=== PATIENT | male | born 1930 | race Caucasian/White ===

== ENCOUNTER 2016-08-18 09:39 | Inpatient (IN) ==
--- NOTE | 2016-08-18 10:10 | Emergency Department Note ---
Arrival - Arrival Chief Complaint: Neuro Stated Complaint: confusion, inability to communicate ED Nursing Triage Note: C/O HAVING CONFUSION SINCE LAST PM., SON STATES THAT HE FOUND HIM THIS MORNING WITH KEYS IN THE CAR AND THE HOUSE GILL WAS ON THE OUTSIDE OF THE DOOR., PATIETN CONFUSED AT TIME OF TRIAGE., Mode of Arrival: Ambulatory Limitations: Altered Mental Status Source: Family Time Seen by Provider: 08/18/16 09:59 - History of Present Illness HPI Narrative: This 85-year-old white male presents with the family for significant change and orientation. The patient normally is able to get around town by himself, converse easily, and visit his daily in a senior care. However this morning his son found him confused and disoriented to time and place. When he discovered his father today the car keys were still in the car and the house keys were stuck in the door on the outside. Currently the patient is oriented only to person. The son describes no significant complaints over the past several days including no complaints of headache, focal deficits, chest pain, shortness of breath, or visual changes. The patient has had a prior stroke without any residual deficits. Currently the patient appears in no acute distress. Onset (ago): hour(s) (Onset of symptoms several hours ago.) Allergies/Adverse Reactions: Allergies Allergy/AdvReac Type Severity Reaction Status Date / Time No Known Allergies Allergy Unverified 08/18/16 09:44 Home Medications: Home Medications Medication Instructions Recorded Confirmed Type Aspirin EC Tab 81 mg PO DAILY 08/18/16 08/18/16 History Dutasteride/Tamsulosin HCl 1 each PO DAILY 08/18/16 08/18/16 History [Dutasteride-Tamsulosin 0.5-0.4] Lisinopril 20 mg PO DAILY 08/18/16 08/18/16 History Pantoprazole Tab [Protonix Tab] 40 mg PO DAILY 08/18/16 08/18/16 History Rivaroxaban [Xarelto] 15 mg PO DAILY 08/18/16 08/18/16 History Rosuvastatin Calcium 5 mg PO DAILY 08/18/16 08/18/16 History Review of System - Review of System 12 point system: reviewed and no additional remarkable complaints except as stated - Review of System Constitutional: Present: as per HPI Respiratory: Present: as per HPI Cardiovascular: Present: as per HPI Neurological: Present: as per HPI Medical,Surgical,& Family Hx - Medical History Cardio: History of: Cerebrovascular Disease, Hypertension, [place], Cardiovascular Problems Gastrointestinal: History of: GERD, Gastrointestinal Bleed - Social History Smoking Status: Never smoker Frequency of Alcohol Use: None Type of Drug Use: None Exam Physical Examination: GENERAL: Well developed, well nourished elderly white male in no acute distress. HEENT: Normocephalic. No trauma. Moist mucous membranes. EOMI. PERRLA. ENT NML NECK: Supple. No adenopathy. CARDIAC: Regular. No murmurs. Heart rate 54 CHEST: Clear to auscultation. No respiratory distress. O2 sat 100% ABDOMEN: Soft. Nontender. Active bowel sounds. EXTREMITIES: No trauma. Normal ROM. No pedal edema. SKIN: No diaphoresis. No rash. NEURO: Alert. Motor, sensory, and vibratory intact. Oriented only to person no focal deficits. Vital Signs: Vital Signs Temperature 97.7 F 08/18/16 09:54 Pulse Rate 56 L 08/18/16 11:02 Respiratory Rate 20 08/18/16 10:46 Blood Pressure 175/89 08/18/16 11:02 O2 Sat by Pulse Oximetry 100 08/18/16 11:02 Course - Reevaluation(s) Reevaluation #1: Discussed with family the need for further evaluation and treatment especially in light of his cardiac arrhythmia. - Consultations Consultation #1: Discussed with hospitalist service will admit for further evaluation treatment. Results - Labs CBC & BMP: 08/18/16 10:00 08/18/16 10:00 Labs: I reviewed the laboratory noted the borderline low hematocrit, low platelet count, mildly azotemic renal numbers, and bump in troponin. - Impressions EK-1 atrial flutter heart rate of 57. Normal QRS duration. Rare PVC. Inferolateral ST depression consistent with ischemia. Poor R-wave progression anteriorly and no acute injury pattern noted. - Diagnostic Findings Procedure: Chest x-ray: image reviewed by me, report reviewed by me ( Cardiomegaly with scattered atelectasis), CT: image reviewed by me, report reviewed by me (Cerebral atrophy with microvascular ischemic disease but no acute event noted) Disposition Clinical Impression: Altered mental status, Atrial flutter Case discussed with: patient's family Disposition: Still a Patient Condition: Stable Time of Disposition: 12:10
[2016-08-18 10:18] LABS: Basophils % 0.2 % (0.0-0.8); Eosinophils # 0.1 10*3/uL (0.0-0.87); Hematocrit 37.2 VOL% (42.0-52.0); Immature Granulocytes % 0.2 %; Immature Granulocytes Absolute 0.01 #; Lymphocytes # 1.8 10*3/uL (1.4-4.0); Lymphocytes % 38.3 % (21.2-54.2); Mean Corpuscular HGB Conc 32.3 GM/DL (32-36); Mean Corpuscular Hemoglobin 30 PG (27-34); Mean Corpuscular Volume 93.2 FL (87-102); Mean Platelet Volume 12.2 FL (9.6-12.0); Monocytes # 0.5 10*3/uL (0.11-0.8); Monocytes % 11.7 % (1.7-12.7); Neutrophils # 2.2 10*3/uL (1.4-7.4); Neutrophils % 47.6 % (38.7-73.9); Red Blood Count 3.99 MC/CUMM (3.8-5.5); Red Cell Distribution Width 14.1 % (9.3-17.3); White Blood Count 4.6 T/CUMM (4-12)
[2016-08-18 10:20] LABS: Platelet Count 89 T/CUMM (130-400)
--- NOTE | 2016-08-18 10:21 | EKG Report ---
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
[2016-08-18 10:42] LABS: Platelet Estimate Decreased
[2016-08-18 10:51] LABS: Albumin 3.6 G/DL (3.4-5.0); Bilirubin,Total 0.9 MG/DL (0.2-1.0); Calcium 8.2 MG/DL (8.5-10.1); Potassium 4.3 MMOL/L (3.5-5.1); Total Protein 7.1 G/DL (6.4-8.3)
--- NOTE | 2016-08-18 10:55 | CT Report ---
History: Mental status changes. Confusion. Disorientation to time and place. History of stroke Date: 08/18/2016 Study: CT head without contrast Comparison exam: CT head July 02, [address] sections were obtained through the head without IV contrast. Total DLP measures 914.6 mGy*cm. The study was also reviewed by [facility]. This CT exam was performed using one or more the following dose reduction techniques: Automated exposure control, adjustment of the MA and/or KV according to patient size, or use of iterative reconstruction technique. There is mild to moderate diffuse cerebral atrophy. The ventricles are midline in position without evidence of hydrocephalus. There is no mass or parenchymal hemorrhage. There is no gross CT evidence of acute cortical stroke. There is evidence of a small chronic infarct in the left parietal convexity area, measuring up to 2 cm diameter. There is some ill-defined low density in the periventricular white matter without mass effect compatible with changes of small vessel disease. There is no acute extra-axial hematoma. There is mild to moderate distal carotid artery calcification. There is no acute abnormality of the calvarium. The partially visualized paranasal sinuses and mastoid air cells are clear. There is a metallic density oval opacity within the right external auditory canal at 7.3 mm diameter compatible with foreign body, possibly a hearing aid. Impression: No acute intracranial process. Cerebral atrophy and chronic ischemic changes. Foreign body in right external auditory canal, possibly a hearing aid PROCEDURE INTERPRETED AT [facility] DEPARTMENT OF RADIOLOGY Final Report Signed by: Dr. Vanita Miramontes
--- NOTE | 2016-08-18 11:02 | XRay Report ---
History: Altered mental status. History of hypertension Date: 08/18/2016 Study: Chest x-ray AP portable Comparison exam: July 02, 2013 chest x-ray There is mild cardiomegaly. There is no mediastinal mass. The pulmonary vasculature is not engorged There is no gross pleural effusion. There is some mild patchy atelectasis/infiltrate in the medial right lung base. There is mild thoracic spondylosis. Impression: Cardiomegaly without overt CHF. Mild atelectasis/infiltrate medial right lung base. Mild right basilar pneumonia cannot be excluded PROCEDURE INTERPRETED AT [facility] DEPARTMENT OF RADIOLOGY Final Report Signed by: Dr. Vanita Miramontes
[2016-08-18 11:10] LABS: Troponin I Only 0.049 NG/ML (0.00-0.045)
[2016-08-18 11:24] LABS: Apearance,Urine CLEAR (Clear); Bilirubin,Urine Negative (Negative); Blood, Urine Negative (Negative); Glucose,Urine (UA) Negative (Negative); Ketones,Urine Negative (Negative); Nitrite,Urine Negative (Negative); Protein,Urine Negative; RBC,Urine <1 /HPF (0-4); Urine Color Straw (Yellow); Urine Specific Gravity 1.009 (1.001-1.035); Urine Urobilinogen < 2.0 EU/DL (0.2-1.0); WBC,Urine <1 /HPF (0-6)
[2016-08-18 11:24] LABS: INR 1.3
[2016-08-18] MEDS ORDERED: LORazepam 2 MG/1 ML VIAL ONE (11:48)
[2016-08-18] MEDS ORDERED: LORazepam 2 MG/1 ML VIAL IV STA ×2 (11:52→12:34)
[2016-08-18] MEDS ORDERED: ONDANSETRON 4 MG/2 ML VIAL IV PRN (13:11)
--- NOTE | 2016-08-18 13:15 | Hospitalist History & Physical ---
<Annika Curryda - Last Filed: 08/18/16 13:44> Assessment and Plan (1) Atrial flutter Status: Acute Assessment and plan: We will admit. Rate is low at this time; will continue to monitor. Consult Cardiology to assist. Current Visit: Yes (2) Altered mental status, unspecified Status: Acute Assessment and plan: Will complete full cardiac work-up. Will obtain corrigan cultures and treat as indicated. Current Visit: Yes History of Present Illness Chief complaint: "confusion" History of present illness: This is a 85 year old male that presented to the ED this morning with his son for evaluation of altered mental status. He has a medical history of myocardial infarction, hypertension, coronary artery disease and GERD. The patient is normally independent. He lives alone. He drives his car around town and visits his daily at a local senior living facility in which she resides in. His son is at bedside, he serves as historian. He reports a slight change in mentation on last night however was not really bothered by it. He left his father's home and returned this morning to check on him. Upon arrival this morning, he discovered his father t car keys were in the car and the house keys were stuck in the door on the outside. Other than the slight changes on last night, the son describes no overt changes in his father in recent days. At the time of presentation, the client was altered. He was only oriented to himself. He became anxious and attempted to leave. His son attempted to redirect him and he then became combative. He is now calm. Labs were obtained which were essentially unremarkable with the exception of his BUN and Creatinine which were noted at 24/1.60. Cardiac enzymes were mildly elevated at 0.049. CT of the was obtained which suggested cerebral atrophy with cerebral atrophy with microvascular ischemic disease ; however but no acute event was noted. Chest radiograph was obtained and revealed cardiomegaly with scattered atelectasis. EKG was obtained which suggested: 3-1 atrial flutter with a rate of 57, normal QRS duration, rare PVC's, inferolateral ST depression consistent with ischemia, poor R-wave progression anteriorly and no acute injury pattern noted. After brief discussion with both Dr. Marroquin and Dr. Blanc, the patient will be admitted under the hospitalist services for continuation of care. We will consult Dr. Touchstone, patient is well known to him. Home Medications Medication Instructions Recorded Confirmed Type Aspirin EC Tab 81 mg PO DAILY 08/18/16 08/18/16 History Dutasteride/Tamsulosin HCl 1 each PO DAILY 08/18/16 08/18/16 History [Dutasteride-Tamsulosin 0.5-0.4] Lisinopril 20 mg PO DAILY 08/18/16 08/18/16 History Pantoprazole Tab [Protonix Tab] 40 mg PO DAILY 08/18/16 08/18/16 History Rivaroxaban [Xarelto] 15 mg PO DAILY 08/18/16 08/18/16 History Rosuvastatin Calcium 5 mg PO DAILY 08/18/16 08/18/16 History Allergies Allergy/AdvReac Type Severity Reaction Status Date / Time lorazepam [From Ativan] AdvReac Intermediate Confusion Verified 08/18/16 15:25 Medical,Surgical,& Family Hx - Medical History Cardio: History of: Cerebrovascular Disease, Hypertension, [place], Cardiovascular Problems Gastrointestinal: History of: GERD, Gastrointestinal Bleed - Social History Smoking Status: Never smoker Frequency of Alcohol Use: None Type of Drug Use: None ROS unobtainable: due to mental status Exam - Constitutional Vitals: Period Temp Pulse Resp BP Sys/Stubbs Pulse Ox Last 24 Hr 97.7 F-97.7 F 50-57 16-20 175-190/83-118 98-100 General appearance: normal weight, no acute distress - Head Head exam: Present: normal inspection, normocephalic, atraumatic - Eye Eye exam: Present: EOMI, conjunctival injection. Absent: nystagmus Pupils: Present: BLAKE, normal accommodation - ENT ENT exam: Present: normal exam, normal external ear exam, other (bilateral hearing aids) - Neck Neck exam: Present: normal inspection - Respiratory Respiratory exam: Present: clear to auscultation bilaterally, rhonchi. Absent: rales, stridor, wheezes - Cardiovascular Cardiovascular exam: Present: irregular rhythm (atrial flutter) - GI/Abdominal GI/Abdominal exam: Present: normal bowel sounds, soft - Extremities Exam Extremities exam: Present: normal inspection, full ROM. Absent: edema - Back Exam Back exam: Present: normal inspection - Neurological Exam Neurological exam: Present: alert, altered - Psychiatric Psychiatric exam: Present: normal affect - Skin Skin exam: Present: normal color, warm, dry Results - Labs CBC & BMP: 08/18/16 10:00 08/18/16 10:00 Lab Results: I have reviewed the past 24 hour labs Quality Measures - VTE Contraindication to Pharmacological VTE Prophylaxis: Already on Theraputic Agent , No Prophylaxis Needed <AnaMarcus robbinsril - Last Filed: 08/18/16 16:23> History of Present Illness History of present illness: This is a shared visit with nurse practitioner, I independently interviewed and examined patient at bedside. Mr. Betancourt is a 85 year old male who presented accompanied by his son with complaints of change in mental status and confusion which was first noted yesterday, seemed to have improved yesterday evening but recurred again today. Son noted today that he was totally confused and unable to carry out his usual daily activity. There is no report of any focal weakness. No previous episode. He lives alone. I reviewed the vital signs, he was quite hypertensive at presentation. On examination: He is still confused No focality on neurological examination. ? Crackles heard on left and right lower lung zones. Change in mental status/delirium ? etiology, likely toxic/metabolic - CT scan is negative hypertensive urgency which may also be responsible for his encephalopathy Bradycardia Acute kidney injury Elevated troponin in the face of hypertension and acute kidney injury Thrombocytopenia ? Etiology Mild atelectasis/infiltrate in the right lung base on chest x-ray rule out pneumonia Plan: Control blood pressure, resume home antihypertensive and adjust doses as we go along. Ativan as needed for agitation. Urine chemistry panel, renal ultrasound since he has a history of BPH to rule out any obstructive uropathy as cause of acute kidney injury. Obtain CT scan to further evaluate chest x-ray findings. Send rapid influenza test, check ammonia level Consult cardiology to evaluate elevated troponin. Obtain echocardiogram. Serial troponin and EKGs. CRP, pro-calcitonin. I discussed with patient's son and [id number] at bedside. Exam - Constitutional Vitals: Period Temp Pulse Resp BP Sys/Stubbs Pulse Ox Last 24 Hr 96.7 F 57-58 20 171-190/93-93 97 Results - Labs CBC & BMP: 08/18/16 10:00 08/18/16 10:00
[2016-08-18] MEDS ORDERED: HALOPERIDOL 5 MG/ML AMP IM ONE (13:57)
[2016-08-18] MEDS ORDERED: HALOPERIDOL 5 MG/ML AMP ONE (13:59)
--- NOTE | 2016-08-18 15:10 | EKG Report ---
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
--- NOTE | 2016-08-18 16:48 | Cardiology Consult Note ---
Assessment and Plan (1) Bradyarrhythmia Status: Acute Assessment and plan: 1. 85 year-old WM with history of CAD (50% EF with stenting of LAD 2 in 2005) , chronic atrial flutter apparently since stroke in 2013 who presented with prolonged confusion yesterday which recurred today and noted to have ventricular rate of mid 40s 2. No presyncope syncope or hypotension (he is actually hypertensive currently) 3. Reported 5 second pause associated with a stroke in 2013; pacemaker was planned but was not performed for some reason (unsure whether the patient refused, or was felt it was a transient phenomenon related to his stroke?) 4. Monitor on telemetry 5. Hold Xarelto until the morning, to determine whether he will need a pacemaker or not 6. Echocardiogram 7. Check follow-up electrolytes and thyroid function 8. Apparently had either confusion and/or combative behavior for which she was given Haldol; he is currently calm but is not oriented (superior and has dementia, but his son thinks that the medicine is effecting his ability to give a history) Current Visit: Yes (2) Altered mental status, unspecified Status: Acute Current Visit: Yes (3) Atrial flutter Status: Acute Current Visit: Yes History of Present Illness - Consult Narrative History of present illness: Mr. Betancourt is a 85 [address] male [address] Dr. Lechuga who is fairly independent and drives to see his in a facility regularly. However he was found to be confused yesterday and had not driven his car Alway and in reported he had gotten confused and did not know which way to go. He declined going to the hospital, and so his son watched him for a while. Later that afternoon the followed him to the facility where his is any was able to drive. Today his son brought him to the hospital because "not being right". He became very agitated as he did not want to stay in the hospital and was given Haldol which apparently relaxed him. He is currently relaxed but cannot give any history and is not oriented. His son states that is the Haldol the did that. He is not complaining of chest pain or shortness of breath or dizziness. However his heart rate was in the 40s with chronic atrial flutter and is currently just over 50 beats minute. There is been no presyncope or syncope noted. Of note pacemaker was planned after his stroke in 2013 for 5 second positive, but apparently this was not performed for uncertain reasons. He declined anticoagulation for that admission but has been on Xarelto since that time. CC: Min Blanc MD - Home Medications and Allergies Home Medications: Home Medications Medication Instructions Recorded Confirmed Type Aspirin EC Tab 81 mg PO DAILY 08/18/16 08/18/16 History Dutasteride/Tamsulosin HCl 1 each PO DAILY 08/18/16 08/18/16 History [Dutasteride-Tamsulosin 0.5-0.4] Lisinopril 20 mg PO DAILY 08/18/16 08/18/16 History Pantoprazole Tab [Protonix Tab] 40 mg PO DAILY 08/18/16 08/18/16 History Rivaroxaban [Xarelto] 15 mg PO DAILY 08/18/16 08/18/16 History Rosuvastatin Calcium 5 mg PO DAILY 08/18/16 08/18/16 History Allergies/Adverse Reactions: Allergies Allergy/AdvReac Type Severity Reaction Status Date / Time lorazepam [From Ativan] AdvReac Intermediate Confusion Verified 08/18/16 15:25 Medical,Surgical,& Family Hx - Medical History Cardio: History of: Cerebrovascular Disease, Hypertension, [place], Cardiovascular Problems Psychological: History of: Behavior Problems No history of: Anxiety Disorders Neurology: History of: Dementia, TIA Gastrointestinal: History of: GERD, Gastrointestinal Bleed - Surgical History Cardiac Surgeries: Patient Denies: Cardiac Catheterization Thoracic Surgeries: Patient denies;: Lobectomy Neurologic Surgeries: Patient denies: Neurologic Surgery HEENT Surgeries: Patient denies: Tonsilectomy & Adenoidectomy - Family History Family History: Reports;: Family Heart Disease, Family Psychiatric Problems - Social History Smoking Status: Never smoker Frequency of Alcohol Use: None Type of Drug Use: None Physical Examination Vital Signs Temp Pulse Resp BP Pulse Ox 97.7 F 54 L 16 177/118 100 08/18/16 09:40 08/18/16 09:40 08/18/16 09:40 08/18/16 09:40 08/18/16 09:40 General: Present: Appears Well, No Apparent Distress, Other (alert but not oriented) HEENT: Present: Normocephaly Neck: Present: Supple Neck, No JVD/HJR, No Bruit Cardiac: Present: Bradycardia. Absent: Systolic Murmur, Diastolic Murmur Lungs: Present: Decreased Breath Sounds, Other (unable to cooperate with lung exam) Abdomen: Present: Soft, Non-Tender Extremities: Present: +1 Edema Result/EKG - Labs CBC & BMP: 08/18/16 10:00 08/18/16 10:00 Labs: Laboratory Results - last 24 hr 08/18/16 08/18/16 15:15 15:15 Ammonia 14 C-Reactive Protein < 0.29 Quality Measures - VTE Contraindication to Pharmacological VTE Prophylaxis: Already on Theraputic Agent , No Prophylaxis Needed
[2016-08-18] MEDS ORDERED: amLODIPine 2.5 MG TABLET PO ONE (20:21)
[2016-08-18] MEDS: DOBUTamine 500 MG/250 ML PREMIX IV SCH (20:47)
--- NOTE | 2016-08-18 20:52 | CT Report ---
History: Infiltrate right lung base. Abnormal chest x-ray Date: 08/18/2016 Study: CT chest without contrast Comparison exam: July 31, [address] sections were obtained through the lungs without IV contrast. The CT exam was performed using one or more of the following dose reduction techniques: Automated exposure control, adjustment of the mA and/or kV according to patient size, or use of iterative reconstruction technique. There is mild layering bilateral pleural effusion. There is no confluent infiltrate to suggest pneumonia. There is some dependent atelectasis in the lower lungs. There is nonspecific mediastinal lymphadenopathy, to include a 14 mm short axis diameter subcarinal node which has developed in the interval since the [address] There is a posterior right paratracheal lymph node measuring 13 mm diameter which is also developed in the interval. There is no aneurysm of the thoracic aorta. There is moderate to prominent coronary artery calcification with involvement of the left anterior descending coronary artery. There is a small hiatal hernia. Spondylotic changes of the spine are present. Impression: No evidence of pneumonia. Nonspecific mediastinal lymphadenopathy which has developed in the interval Mild bilateral pleural effusion Coronary artery calcification Small hiatal hernia PROCEDURE INTERPRETED AT [facility] DEPARTMENT OF RADIOLOGY Final Report Signed by: Dr. Vanita Miramontes
[2016-08-18] MEDS: NITROGLYCERIN DRIP 50 MG/250 ML BOTTLE IV SCH (23:00)
[2016-08-18] MEDS: HALOPERIDOL 5 MG/ML AMP IV PRN (23:40)
--- NOTE | 2016-08-19 00:32 | EKG Report ---
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
[2016-08-19 05:32] LABS: Basophils % 0.2 % (0.0-0.8); Eosinophils % 0.2 % (0.00-10.9); Hematocrit 33.1 VOL% (42.0-52.0); Hemoglobin 11.1 GM/DL (14.0-18.0); Immature Granulocytes % 0.4 %; Immature Granulocytes Absolute 0.02 #; Lymphocytes # 0.5 10*3/uL (1.4-4.0); Lymphocytes % 10.1 % (21.2-54.2); Mean Corpuscular HGB Conc 33.5 GM/DL (32-36); Mean Corpuscular Hemoglobin 31 PG (27-34); Mean Corpuscular Volume 91.2 FL (87-102); Mean Platelet Volume 12.4 FL (9.6-12.0); Monocytes # 0.4 10*3/uL (0.11-0.8); Neutrophils # 3.7 10*3/uL (1.4-7.4); Neutrophils % 80.1 % (38.7-73.9); Red Blood Count 3.63 MC/CUMM (3.8-5.5); Red Cell Distribution Width 13.8 % (9.3-17.3); White Blood Count 4.6 T/CUMM (4-12)
[2016-08-19 05:37] LABS: Platelet Count 87 T/CUMM (130-400)
[2016-08-19 06:02] LABS: Calcium 8.1 MG/DL (8.5-10.1); Magnesium 1.8 MG/DL (1.8-2.4); Osmolality,Calculated 288.8 MOS/KG (273-304); Potassium 3.6 MMOL/L (3.5-5.1)
[2016-08-19 06:09] LABS: CKMB % 1.4 %; Troponin I Only 0.328 NG/ML (0.00-0.045)
[2016-08-19 06:12] LABS: Albumin 3.3 G/DL (3.4-5.0); Bilirubin,Total 1.5 MG/DL (0.2-1.0); Calcium 8.2 MG/DL (8.5-10.1); Magnesium 1.7 MG/DL (1.8-2.4); Osmolality,Calculated 288.8 MOS/KG (273-304); Potassium 3.6 MMOL/L (3.5-5.1); Risk Ratio 2.48; Thyroid Stimulating Hormone 6.43 uIU/ml (0.358-3.74); Total Protein 6.2 G/DL (6.4-8.3); VLDL CHOLESTEROL 13.2 MG/DL
[2016-08-19 06:18] LABS: Hypochromasia Slight; Platelet Estimate Decreased
[2016-08-19 06:19] LABS: Microcytosis 1+; Ovalocytes Slight
--- NOTE | 2016-08-19 07:30 | Cardiology Progress Note ---
Assessment and Plan (1) Bradyarrhythmia Status: Acute Assessment and plan: 1. 85 year-old WM with history of CAD (50% EF with stenting of LAD 2 in 2005) , chronic atrial flutter apparently since stroke in 2013 who presented with prolonged confusion yesterday which recurred today and noted to have ventricular rate of mid 40s 2. No presyncope syncope or hypotension (he is actually hypertensive currently) 3. Reported 5 second pause associated with a stroke in 2013; pacemaker was planned but was not performed for some reason (unsure whether the patient refused, or was felt it was a transient phenomenon related to his stroke?) 4. Monitor on telemetry 5. Hold Xarelto until the morning, to determine whether he will need a pacemaker or not 6. Echocardiogram 7. Check follow-up electrolytes and thyroid function 8. Apparently had either confusion and/or combative behavior for which she was given Haldol; he is currently calm but is not oriented (superior and has dementia, but his son thinks that the medicine is effecting his ability to give a history) August 19 update: 1. Mr. Alberto continues to have his chronic atrial flutter, but is now having 5 -6 second pauses, which prompted me to move him to the unit for dopamine 5 mics per kilogram per minute. She has not had further pauses of significance since we started. 2. He cannot consent for himself, I discussed with the son the matter and he said he is willing to sign for consent for pacemaker. He does want to talk to Dr. Lechuga, explained to him that Dr. Lechuga may not be in. I last Dr. Clinton to see him to consider placing pacemaker tomorrow. 3. Continue to hold Xarelto for plan for pacemaker 4. Echocardiogram ordered 5. Hypertensive with blood pressure systolic in the 170s; given amlodipine 10 millions now and daily 6. Given his history of previous stroke, will consult neurology (no acute findings on initial CT) Current Visit: Yes (2) Altered mental status, unspecified Status: Acute Current Visit: Yes (3) Atrial flutter Status: Acute Current Visit: Yes Cardiology - PN: Subj Interval history: Mr. Betancourt is no distress but cannot answer questions. He speaks with somewhat nonsensically. He has no complaints. He is currently atrial flutter with reasonable rate, was moved to CCU due to Exam (Progress Note) - Constitutional Vitals: Period Temp Pulse Resp BP Sys/Stubbs Pulse Ox Last 24 Hr 96.7 F-97.9 F 44-120 14-23 122-206/42-123 93-100 General appearance: normal weight, no acute distress, other (disoriented and cannot answer questions) - Head Head exam: Present: normocephalic, atraumatic - Neck Neck exam: Present: normal inspection - Respiratory Respiratory exam: Present: clear to auscultation bilaterally. Absent: stridor, wheezes - Cardiovascular Cardiovascular exam: Present: regular rate and rhythm. Absent: diastolic murmur , tachycardia - GI/Abdominal GI/Abdominal exam: Present: soft. Absent: tenderness - Extremities Exam Extremities exam: Absent: edema - Neurological Exam Neurological exam: Present: alert. Absent: oriented X3 Result/EKG - Labs CBC & BMP: 08/19/16 04:59 08/19/16 04:59 Labs: Laboratory Results - last 24 hr 08/18/16 08/18/16 08/19/16 15:15 15:15 04:59 WBC RBC Hgb Hct MCV MCH MCHC RDW Plt Count MPV Neut % (Auto) Lymph % (Auto) [place] % (Auto) Eos % (Auto) Baso % (Auto) Neut # (Auto) Lymph # (Auto) [place] # (Auto) Eos # (Auto) Baso # (Auto) Immature Gran % Nucleated RBC % Immature Gran # Nucleated RBCs # Platelet Estimate Hypochromasia Microcytosis Ovalocytes Sodium Potassium Chloride Carbon Dioxide Anion Gap BUN Creatinine GFR Calculation BUN/Creatinine Ratio Glucose Calculated Osmolality Calcium Magnesium Total Bilirubin AST ALT Alkaline Phosphatase Ammonia 14 Total Creatine Kinase 532 H D CK-MB (CK-2) 7.6 H CK and CKMB Interp 1.4 Troponin I 0.328 H D C-Reactive Protein < 0.29 B-Natriuretic Peptide Total Protein Albumin Globulin Albumin/Globulin Ratio Triglycerides Cholesterol LDL Cholesterol VLDL Cholesterol HDL Cholesterol Heart Disease Risk Ratio TSH 3rd Generation 08/19/16 08/19/16 08/19/16 04:59 04:59 04:59 WBC 4.6 RBC 3.63 L Hgb 11.1 L Hct 33.1 L MCV 91.2 MCH 31 MCHC 33.5 RDW 13.8 Plt Count 87 L MPV 12.4 H Neut % (Auto) 80.1 H Lymph % (Auto) 10.1 L Nicollet % (Auto) 9.0 Eos % (Auto) 0.2 Baso % (Auto) 0.2 Neut # (Auto) 3.7 Lymph # (Auto) 0.5 L Nicol[place] # (Auto) 0.4 Eos # (Auto) 0.0 Baso # (Auto) 0.0 Immature Gran % 0.4 Nucleated RBC % 0.0 Immature Gran # 0.02 Nucleated RBCs # 0.00 Platelet Estimate Decreased Hypochromasia Slight Microcytosis 1+ Ovalocytes Slight Sodium 144 Potassium 3.6 Chloride 111 H Carbon Dioxide 22 Anion Gap 14.6 BUN 21 H Creatinine 1.40 H GFR Calculation 53 BUN/Creatinine Ratio 15.00 Glucose 95 Calculated Osmolality 288.8 Calcium 8.2 L Magnesium 1.7 L Total Bilirubin 1.50 H AST 30 ALT 16 Alkaline Phosphatase 68 Ammonia Total Creatine Kinase CK-MB (CK-2) CK and CKMB Interp Troponin I C-Reactive Protein B-Natriuretic Peptide 536 H Total Protein 6.2 L Albumin 3.3 L Globulin 2.9 Albumin/Globulin Ratio 1.1 Triglycerides 66 Cholesterol 109 LDL Cholesterol 62.0 VLDL Cholesterol 13.2 HDL Cholesterol 44 Heart Disease Risk Ratio 2.48 TSH 3rd Generation 6.430 H 08/19/16 04:59 WBC RBC Hgb Hct MCV MCH MCHC RDW Plt Count MPV Neut % (Auto) Lymph % (Auto) Nicol[place] % (Auto) Eos % (Auto) Baso % (Auto) Neut # (Auto) Lymph # (Auto) Nicol[place] # (Auto) Eos # (Auto) Baso # (Auto) Immature Gran % Nucleated RBC % Immature Gran # Nucleated RBCs # Platelet Estimate Hypochromasia Microcytosis Ovalocytes Sodium 144 Potassium 3.6 Chloride 112 H Carbon Dioxide 22 Anion Gap 13.6 BUN 20 H Creatinine 1.40 H GFR Calculation 53 BUN/Creatinine Ratio 14.00 Glucose 96 Calculated Osmolality 288.8 Calcium 8.1 L Magnesium 1.8 Total Bilirubin AST ALT Alkaline Phosphatase Ammonia Total Creatine Kinase CK-MB (CK-2) CK and CKMB Interp Troponin I C-Reactive Protein B-Natriuretic Peptide Total Protein Albumin Globulin Albumin/Globulin Ratio Triglycerides Cholesterol LDL Cholesterol VLDL Cholesterol HDL Cholesterol Heart Disease Risk Ratio TSH 3rd Generation Quality Measures - VTE Contraindication to Pharmacological VTE Prophylaxis: Already on Theraputic Agent , No Prophylaxis Needed
--- NOTE | 2016-08-19 08:33 | Hospitalist Progress Note ---
Assessment and Plan - Time spent with patient Time spent with patient: Greater than 30 minutes (1) Hypertension Status: Acute Assessment and plan: Currently on nitro drip and dobutamine and oral nifedipine with improvement in his blood pressure. Cardiology following Current Visit: Yes (2) Encephalopathy acute Status: Acute Assessment and plan: So far no infective cause for his encephalopathy has been found. I initially suspected hypertensive encephalopathy, blood pressure is now better controlled but he still pleasantly confused. This may be worsening/progression of vascular dementia Neurology has been consulted Current Visit: Yes (3) Atrial flutter Status: Acute Assessment and plan: Rate controlled per cardiology Currently on dobutamine and cardiology managing dosing. His anticoagulation is on hold for possible pacemaker placement tomorrow. Dr. Clinton has been consulted Current Visit: Yes (4) Altered mental status, unspecified Status: Acute Current Visit: Yes (5) Bradyarrhythmia Status: Acute Assessment and plan: Currently his heart rate have been within normal limits. Cardiology is following possible pacemaker placement Current Visit: Yes Hospitalist: Subjective Interval history: This is an 85-year-old man change in mental status over 48 hours time period. Transferred by cardiology to CCU because of prolonged cardiac pauses. Records show that he has had rhythm abnormalities in the past but had declined pacemaker placement. History of still slightly elevated but he has not complained of any chest pain. TSH is elevated but T4 is within normal limits. Still manages to maintain elevated blood pressures. Slight improvement in his overall sensorium today, not combative. No fever. There has not been any infective or metabolic cause for his change in mental status. No focal deficit, neurology has been consulted. Exam - Constitutional Vitals: Period Temp Pulse Resp BP Sys/Stubbs Pulse Ox Last 24 Hr 96.7 F-97.9 F 44-120 14-23 122-206/42-123 93-100 General appearance: no acute distress - Head Head exam: Present: normocephalic, atraumatic - Eye Eye exam: Absent: periorbital swelling, scleral icterus Pupils: Present: BLAKE - ENT ENT exam: Present: normal exam - Neck Neck exam: Absent: lymphadenopathy, meningismus, tenderness - Respiratory Respiratory exam: Present: clear to auscultation bilaterally. Absent: rhonchi, wheezes - Cardiovascular Cardiovascular exam: Present: irregular rhythm. Absent: JVD - GI/Abdominal GI/Abdominal exam: Present: normal bowel sounds, tenderness, soft - Extremities Exam Extremities exam: Absent: edema - Neurological Exam Neurological exam: Present: alert - Psychiatric Psychiatric exam: Present: other (confused) - Skin Skin exam: Present: normal color, warm, dry Results - Labs CBC & BMP: 08/19/16 04:59 08/19/16 04:59 Quality Measures - VTE Contraindication to Pharmacological VTE Prophylaxis: Already on Theraputic Agent , No Prophylaxis Needed
--- NOTE | 2016-08-19 08:40 | EKG Report ---
Stationary ECG Study [facility] Test Date: 08/19/2016 4:23:09 AM Pat Name: LINDA JOSHI Department: Room: 128 Gender: M [employer] Operator: : [id number] Requested by: Lennox Araujo Order Number: [id number] Reading MD: IGOR OBRIEN Intervals [place] Rate: 67 P: 999 MO: 0 QRS: -44 QRSD: 110 T: 80 QT: 364 QTc: 380 Interpretive Statements ATRIAL FLUTTER WITH CONTROLLED VENTRICULAR RESPONSE VENTRICULAR PREMATURE COMPLEX MARKED LEFT AXIS DEVIATION POSSIBLE ANTEROLATERAL MYOCARDIAL INFARCTION, OLD Electronically Signed On 08-23-16 09:22:26 CDT by IGOR OBRIEN [email or web address]
[2016-08-19] MEDS ORDERED: RIVAROXABAN 15 MG TABLET PO SCH (09:00)
[2016-08-19] MEDS: DUTASTERIDE 0.5 MG CAPSULE PO SCH (09:40)
[2016-08-19] MEDS: ASPIRIN EC 81 MG TABLET PO SCH (09:40)
[2016-08-19] MEDS: ROSUVASTATIN 10 MG TABLET PO SCH (09:40)
[2016-08-19] MEDS: TAMSULOSIN 0.4 MG CAPSULE PO SCH (09:41)
[2016-08-19] MEDS: amLODIPine 10 MG TABLET PO SCH (09:41)
[2016-08-19] MEDS: LISINOPRIL 20 MG TABLET PO SCH (09:41)
[2016-08-19] MEDS: PANTOPRAZOLE 40 MG TABLET PO SCH (09:41)
[2016-08-19] MEDS ORDERED: diphenhydrAMINE CAP 25 MG CAPSULE PO ONE (11:23)
[2016-08-19] MEDS ORDERED: DIAZEPAM 5 MG TABLET PO ONE (11:23)
[2016-08-19] MEDS ORDERED: ceFAZolin 1,000 MG VIAL IRRIG ONE (11:23)
[2016-08-19] MEDS: HALOPERIDOL 5 MG/ML AMP IV PRN ×2 (11:27→20:43)
--- NOTE | 2016-08-19 11:29 | Event Note ---
Patient recently has had change in mental status. He is in ICU requiring dobutamine because of his heart rates being severely bradycardic as well as having issues with pauses over 6 seconds. He is had some issues previously and has refused pacemaker. The patient now is confused with mental status changes. I have discussed the patient's situation with Dr. Stanislaw Parrish and with Mr. Betancourt son Mr. Lamin Betancourt. I discussed with Mr. Lamin Betancourt and his the patient's status and indications for pacemaker implantation as well as the risk and how the procedure be carried out. Mr. Lamin Betancourt has discussed this with his siblings and they have decided to proceed with the procedure. As noted I discussed pacemaker system implantation procedure with the patient's available family. I reviewed with them the indications of the procedure as well as the basis of how the procedure itself would be carried out. I also reviewed with them the possible risks which include but not necessarily limited to surgical site bruising pain swelling or pocket hematoma that may require surgical evacuation. Discussed that the pain, swelling, bruising could be significant. Also discussed the possibility of surgical site or pocket infection that may require oral or IV antibiotics or even the possibility of surgical drainage of the pocket or even removal of the pacemaker system. Also discussed the possibility of hemothorax or pneumothorax that may require chest tube and possible blood transfusion. Also discussed the possibility of myocardial perforation that may lead to pericardial tamponade and the need for pericardiocentesis and blood transfusion. They voice understanding and agree to proceed. We plan on carrying out tomorrow morning.
[2016-08-19] MEDS ORDERED: SODIUM CHLORIDE 0.9% 1,000 ML IV SCH (11:30)
[2016-08-19] MEDS: DOBUTamine 500 MG/250 ML PREMIX IV SCH (16:52)
--- NOTE | 2016-08-19 17:28 | ECHO Report ---
Vickie Betancourt Exam Date: 08/19/2016 09:16 Referring Physician: Technologist: Annette Claudio RDCS Age: 85 Ht (in): 70 Wt (lb): 183 Gender: M Exam Location: [facility] Echo Indications: Atrial flutter, Altered mental status, CAD, Cardiomyopathy, unspecified BP: 190 / 90 HR: 83 Rhythm: Atrial flutter Technical Quality: Good IMPRESSIONS 1. Left ventricle is normal size and systolic function ejection fraction 50%. There is mild concentric left ventricular hypertrophy. 2. Right ventricle is mildly dilated with normal systolic function. 3. Right and left atrium are moderately dilated. 4. Aortic valve minimally sclerotic but no stenosis or regurgitation. 5. Mitral valve is anatomically functioning normal. 6. At worst mild tricuspid regurgitation. 7. Mild to possibly moderate elevated right-sided pressures. MEASUREMENTS (Male / Female) Normal Values 2D ECHO LV Diastolic Diameter PLAX 4.7 cm 4.2 - 5.9 / 3.9 - 5.3 cm LV Systolic Diameter PLAX 2.8 cm LV Fractional Shortening PLAX 41.0 % IVS Diastolic Thickness 1.1 cm 0.6 - 1.0 / 0.6 - 0.9 cm LVPW Diastolic Thickness 1.1 cm 0.6 - 1.0 / 0.6 - 0.9 cm RV Internal Dim ED PLAX 3.2 cm Aortic Root Diameter 3.3 cm LA Systolic Diameter LX 5.4 cm 3.0 - 4.0 / 2.7 - 3.8 cm DOPPLER TR Peak Velocity 326.0 cm/s TR Peak Gradient 42.5 mmHg FINDINGS Left Ventricle Normal left ventricular cavity size. Mild left ventricular hypertrophy. Left ventricular ejection fraction is estimated at 60 %. Right Ventricle Right ventricle is upper is normal size to mildly dilated with normal systolic function. Right Atrium Moderately increased right atrial size. Left Atrium Moderately increased left atrial size. Mitral Valve Morphologically normal mitral valve without significant stenosis or prolapse. There is no mitral regurgitation. Aortic Valve Morphologically normal aortic valve the tricuspid with minimal sclerosis but no stenosis. There is no aortic regurgitation. Tricuspid Valve Morphologically normal tricuspid valve. Mild tricuspid valve regurgitation. Tricuspid regurgitation velocities suggest a PAP of 53 mmHg. Pulmonic Valve Morphologically normal pulmonic valve. Trace pulmonary valve regurgitation. Pericardium Normal pericardium without effusion. Aorta Normal ascending aorta dimension. Kulwinder Clinton MD (Electronically Signed) Final Date: 19 August 2016 17:27
[2016-08-19] MEDS: SODIUM CHLORIDE 0.9% 1,000 ML IV SCH (19:42)
[2016-08-19] MEDS: NITROGLYCERIN DRIP 50 MG/250 ML BOTTLE IV SCH (23:22)
[2016-08-20 05:08] LABS: Basophils % 0.2 % (0.0-0.8); Eosinophils % 0.4 % (0.00-10.9); Hematocrit 36.3 VOL% (42.0-52.0); Hemoglobin 11.8 GM/DL (14.0-18.0); Immature Granulocytes % 0.2 %; Immature Granulocytes Absolute 0.01 #; Lymphocytes # 0.8 10*3/uL (1.4-4.0); Mean Corpuscular HGB Conc 32.5 GM/DL (32-36); Mean Corpuscular Hemoglobin 30 PG (27-34); Mean Corpuscular Volume 92.8 FL (87-102); Mean Platelet Volume 12.1 FL (9.6-12.0); Monocytes # 0.6 10*3/uL (0.11-0.8); Monocytes % 11.7 % (1.7-12.7); Neutrophils # 3.7 10*3/uL (1.4-7.4); Neutrophils % 72.5 % (38.7-73.9); Red Blood Count 3.91 MC/CUMM (3.8-5.5); Red Cell Distribution Width 13.8 % (9.3-17.3); White Blood Count 5.1 T/CUMM (4-12)
[2016-08-20 05:10] LABS: Platelet Count 88 T/CUMM (130-400)
[2016-08-20 05:39] LABS: Calcium 8.2 MG/DL (8.5-10.1); Magnesium 1.7 MG/DL (1.8-2.4); Osmolality,Calculated 286.8 MOS/KG (273-304); Potassium 3.7 MMOL/L (3.5-5.1)
[2016-08-20] MEDS ORDERED: diphenhydrAMINE CAP 25 MG CAPSULE PO ONE (06:00)
[2016-08-20] MEDS ORDERED: DIAZEPAM 5 MG TABLET PO ONE (06:00)
[2016-08-20] MEDS ORDERED: MAGNESIUM SULF RIDER 4 GM in PREMIX 1 EACH IV PRN (06:36)
--- NOTE | 2016-08-20 06:37 | Cardiology Progress Note ---
Assessment and Plan - Time spent with patient Time spent with patient: Less than 30 minutes (1) Second degree AV block, Mobitz type II Status: Acute Assessment and plan: Patient atrial flutter/atrial tachycardia with episodes of increased AV block and long pauses up to 6 seconds. 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 May be secondary to having severe bradycardia versus other. CT of the head without acute changes. Current Visit: Yes (5) Bradyarrhythmia Status: Acute Assessment and plan: This is secondary to his AV node disease/Mobitz type II second-degree AV block. He needs a dual-chamber pacemaker as discussed with the family yesterday we will pursue this morning. Current Visit: Yes (6) Hypertension Status: Acute Assessment and plan: Blood pressures of been up and down and we'll monitor these. Current Visit: Yes (7) Encephalopathy acute Status: Acute Assessment and plan: It is not clear the cause of this. Should be monitored but seems to be improving. Current Visit: Yes Cardiology - PN: Subj Interval history: The patient generally the last 24 hours been fairly stable. He has been more lucid this morning and not as agitated. He still somewhat disoriented. He has no family at the bedside this time. We had discussed pacemaker yesterday with them and they were agreeable as are noted on previous notes. The patient's lab work this morning is stable but his magnesium is 1.[address] her on magnesium protocol. His blood pressures of been up and down. His heart rates of been up and down as well. He continues to be in atrial tachycardia/flutter. Exam (Progress Note) - Constitutional Vitals: Period Temp Pulse Resp BP Sys/Stubbs Pulse Ox Last 24 Hr 97.8 F-98.7 F 60-122 14-161 101-184/47-131 94-100 Exam: General appearance: normal weight, elderly man who is alert and disoriented but in no distress HEENT exam: normal inspection, atraumatic Neck exam: normal inspection no JVD. No carotid bruit. Trachea is in midline Respiratory/lungs exam: clear to auscultation bilaterally good air movement. Cardiovascular exam: regular rate and rhythm, no murmur or gallop or rub. No precordial lift. Chest wall exam: nontender GI/Abdominal exam: normal bowel sounds, soft, nontender, no abdominal bruits or pulsatile masses. Extremeties/musculoskeletal: normal inspection without edema or cyanosis. Neurological exam: Awake and alert but disoriented. He is not agitated she was yesterday. Psychiatric exam: Little disoriented. He though is not agitated. Skin exam: normal color, warm Result/EKG - Labs CBC & BMP: 08/20/16 03:52 08/20/16 03:52 Lab Results: I have reviewed the past 24 hour labs Labs: Laboratory Results - last 24 hr 08/20/16 08/20/16 03:52 03:52 WBC 5.1 RBC 3.91 Hgb 11.8 L Hct 36.3 L MCV 92.8 MCH 30 MCHC 32.5 RDW 13.8 Plt Count 88 L MPV 12.1 H Neut % (Auto) 72.5 Lymph % (Auto) 15.0 L Hall % (Auto) 11.7 Eos % (Auto) 0.4 Baso % (Auto) 0.2 Neut # (Auto) 3.7 Lymph # (Auto) 0.8 L [place] # (Auto) 0.6 Eos # (Auto) 0.0 Baso # (Auto) 0.0 Immature Gran % 0.2 Nucleated RBC % 0.0 Immature Gran # 0.01 Nucleated RBCs # 0.00 Sodium 144 Potassium 3.7 Chloride 113 H Carbon Dioxide 22 Anion Gap 12.7 BUN 15 Creatinine 1.40 H GFR Calculation 53 BUN/Creatinine Ratio 10.00 Glucose 97 Calculated Osmolality 286.8 Calcium 8.2 L Magnesium 1.7 L - Impressions Impressions: Telemetry with atrial tachycardia/flutter with controlled ventricular response. Quality Measures - VTE Contraindication to Pharmacological VTE Prophylaxis: Already on Theraputic Agent , No Prophylaxis Needed
--- NOTE | 2016-08-20 06:43 | History and Physical Update ---
Sedation H&P Update - History and Physical H&P was reviewed, the patient examined and there: are no changes in the patients condition since last H&P was completed. - Dictation Physical: refer to H&P completed by admitting physician - Physical Exam Mental Status: other (slightly disoriented) Heart: regular rate and rhythm Lung: clear to auscultation Abdomen: within normal limits Vitals: within normal limits History and Physical Changes: none - Sedation Plan for Sedation: moderate Patient Consent: Procedure disscussed with patient and patinet has consented., Risks and benefits were discussed with patient,including infection,, bleeding, injury to surrounding structures, seizure, temporary nerve, Patient understands and accepts potential risks/benefits and agrees to, proceed. ASA Class: III Airway Assessment: Class III: Soft palate, base of uvula visible
[2016-08-20] MEDS: MAGNESIUM SULF RIDER 2 GM in PREMIX 1 EACH IV PRN (06:46)
[2016-08-20] MEDS ORDERED: ceFAZolin 1,000 MG VIAL ONE (07:30)
[2016-08-20] MEDS ORDERED: LIDOCAINE 1% 20 ML VIAL ONE (07:30)
[2016-08-20] MEDS ORDERED: TISSUE ADHESIVE 1 EACH APPLICATOR TOP ONE ×2 (07:30→08:29)
[2016-08-20] MEDS ORDERED: MIDAZOLAM 2 MG/2 ML VIAL ONE (07:43)
--- NOTE | 2016-08-20 08:35 | Operative Note ---
Date of procedure: 08/20/16 Procedure Preformed: Single-chamber pacemaker system implantation. Surgeon / Physician: Kulwinder Clinton Billing Supervisor: Jam Hinojosa Post-op diagnosis: same Findings: Successful signature pacemaker implantation. Specimens: none sent Estimated blood loss: minimal Condition: stable Anesthesia: local, conscious sedation Disposition: ICU
--- NOTE | 2016-08-20 08:47 | Cardiac Pacemaker ---
- Preoperative diagnosis Date of Procedure:: 08/20/16 Preoperative Diagnosis: Documented nonreversible symptomatic bradycardia due to , sinus node dysfunction, second-degree atrioventricular block Pre-op Diagnosis: See below/and above Post-op diagnosis: same Procedure: History: 85-year-old man who is had persistent atrial flutter/atrial tachycardia with variable ventricular response. He is had previous bradycardias with symptomatic bradycardia. His pacemaker. He is now had acute mental status changes that are improving it is felt possibly secondary to severe bradycardia. He has had sick sinus syndrome due to sinus node dysfunction with tachybradycardia before. He now has developed AV node disease with Mobitz type II second-degree AV block and pauses. Pre-Op diagnosis: Sick sinus syndrome due to sinus node dysfunction and Mobitz type II second-degree AV block with pauses graded as 6 seconds. Postop diagnosis: Same Procedures: 1. Left subclavian venogram. 2. Fluoroscopic positioning of right ventricular lead. 3. Threshold testing of right ventricular lead. 4. Surgical implantation single-chamber pacemaker left chest. Contrast: Visipaque 10 ml. Medications: Preoperative Benadryl and Valium given orally. Lidocaine 1% SQ 10 ml; Versed 2 mgms total IVP; Ancef 1 gm IVPB, Ancef flush. Estimated blood loss: minimal Sponge count: Correct Pacemaker equipment: 1. Pacemaker generator: Medtronic Advisa SR MRI , model# A3SR01 , serial# [id number] . 2. Ventricular lead: Medtronic model# 5076-58 , serial# [id number] . This is a bipolar active fixation lead. Sensed R-wave is 11.2 mv. At a pulse width of 0.5 ms the threshold is 1.2 volts, current 1.5 mA, resistance 871 ohms, slew rate 2.4 . Discription of procedure: After informed consent the patient was given preoperative medication. They were then brought to the catheterization laboratory where their upper chest was prepped and draped in the usual sterile fashion. Patient then received IV sedation. Fluoroscopy and cinematography was used to obtain a left subclavian venogram for mapping. Local anesthesia with lidocaine below the left clavicle was obtained. Sharp dissection with scalpel was then used to cut through the skin and subcutaneous tissue to the pectoralis fascia. The [place] scissors were then used to create a superior and inferior pocket with also using blunt dissection. Antibiotic sponge was placed in the pocket at this time. At this point using fluoroscopy and the subclavian venogram the subclavian vein was cannulated using needlestick and guidewire. Sheath was then placed into the vein. Through the sheath the ventricular lead was advanced. Under fluoroscopy the right ventricular lead was advanced into the RV outflow track and then positioned into the ventricle into a good position with the first attempt. Thresholds were good and they remained stable. Sheath was then peeled away. The lead was then sutured in position using 2-0 Ethibond with 2 stitches on the sleeve. Antibiotic sponge was removed from the pocket and the pocket irrigated with antibiotic solution. Stylette was completely removed from the lead and final thresholds were measured that remained stable. Pacemaker generator was then connected to the ventricular. Header set screw was tightened on the lead and then tugged on demonstrating it was well seated. Counts were correct. Pacemaker generator was then placed into the pocket and sutured in position with one stitch of 2-0 Ethibond. Pacemaker pocket was then closed using 2 layers of 3-0 Vicryl and one subreticular layer of 4-0 Vicryl. Exofin was used to seal the wound. Patient, tolerated the procedure well and there were no immediate complications. Patient was returned to their room. Implants: See above Anesthesia: local, moderate conscious sedation Surgeon / Physician: Kulwinder Clinton Investigations Chief: other (Jam Hinojosa RN) Estimated blood loss: minimal Specimens: none sent Condition: stable Disposition: ICU/CCU - Medications / Follow-up
[2016-08-20] MEDS: SODIUM CHLORIDE 0.9% 1,000 ML IV SCH ×2 (09:18→19:23)
--- NOTE | 2016-08-20 09:22 | XRay Report ---
Referring Physician: Kulwinder Clinton MD Exam: XR chest 1V portable Date: August 20, 2016 at 8:34 AM Reason: Lead placement Comparison: Chest one view portable August 18, 2016 Findings: The cardiac silhouette is again enlarged, and there has been interval placement of a single lead cardiac pacing device. There is minimal atelectasis at both lung bases, but no pneumothorax or pleural effusion is identified. No acute osseous process is seen. Impression: 1. Cardiomegaly. 2. Interval placement of a cardiac pacing device. 3. Minimal atelectasis at both lung bases. PROCEDURE INTERPRETED AT [facility] DEPARTMENT OF RADIOLOGY Final Report Signed by: Dr. Shailesh Duran
--- NOTE | 2016-08-20 12:40 | Event Note ---
Patient is doing well post-pacemaker implantation. Pacer site looks good without any bleeding bruising or swelling at this time. Chest x-ray is stable. He probably can start his anticoagulation i.e. his Xarelto Saturday.
[2016-08-20] MEDS: DUTASTERIDE 0.5 MG CAPSULE PO SCH (12:50)
[2016-08-20] MEDS: LISINOPRIL 20 MG TABLET PO SCH (12:51)
[2016-08-20] MEDS: amLODIPine 10 MG TABLET PO SCH (12:51)
[2016-08-20] MEDS: ROSUVASTATIN 10 MG TABLET PO SCH (12:51)
[2016-08-20] MEDS: TAMSULOSIN 0.4 MG CAPSULE PO SCH (12:51)
[2016-08-20] MEDS: PANTOPRAZOLE 40 MG TABLET PO SCH (12:51)
[2016-08-20] MEDS: ASPIRIN EC 81 MG TABLET PO SCH (12:51)
--- NOTE | 2016-08-20 15:22 | Neurology Consult Note ---
History of Present Illness History of present illness: This is a 85 year old right-handed white gentleman who has been admitted to the hospital for evaluation of altered mental status. He has a medical history of myocardial infarction, hypertension, coronary artery disease and GERD. The patient is normally independent. He lives alone. He drives his car around town and visits his daily at a local [facility] facility in which she resides in. Family reported a slight change in mentation the night before admission however was not really bothered by it. He left his father's home and returned this morning to check on him. Upon arrival this morning, he discovered his father t car keys were in the car and the house keys were stuck in the door on the outside. Other than the slight changes on last night, the son describes no overt changes in his father in recent days. We tried to do MRI of the brain yesterday and for some reason he could not get it done and today he underwent pacemaker placement and he cannot have MRI done for another 6 weeks now. He is somewhat confused and he mumbles. He is moving all [address] of the head is unremarkable. WBC count in the serum is unremarkable. He has been afebrile. Home Medications Medication Instructions Recorded Confirmed Type Aspirin EC Tab 81 mg PO DAILY 08/18/16 08/18/16 History Dutasteride/Tamsulosin HCl 1 each PO DAILY 08/18/16 08/18/16 History [Dutasteride-Tamsulosin 0.5-0.4] Lisinopril 20 mg PO DAILY 08/18/16 08/18/16 History Pantoprazole Tab [Protonix Tab] 40 mg PO DAILY 08/18/16 08/18/16 History Rivaroxaban [Xarelto] 15 mg PO DAILY 08/18/16 08/18/16 History Rosuvastatin Calcium 5 mg PO DAILY 08/18/16 08/18/16 History Allergies Allergy/AdvReac Type Severity Reaction Status Date / Time lorazepam [From Ativan] AdvReac Intermediate Confusion Verified 08/18/16 15:25 ROS unobtainable: due to mental status Medical,Surgical,& Family Hx - Medical History Cardio: History of: Cerebrovascular Disease, Hypertension, MS, Cardiovascular Problems Psychological: History of: Behavior Problems No history of: Anxiety Disorders Neurology: History of: Dementia, TIA Gastrointestinal: History of: GERD, Gastrointestinal Bleed - Surgical History Cardiac Surgeries: Patient Denies: Cardiac Catheterization Thoracic Surgeries: Patient denies;: Lobectomy Neurologic Surgeries: Patient denies: Neurologic Surgery HEENT Surgeries: Patient denies: Tonsilectomy & Adenoidectomy - Family History Family History: Reports;: Family Heart Disease, Family Psychiatric Problems - Social History Smoking Status: Never smoker Frequency of Alcohol Use: None Type of Drug Use: None Exam - Constitutional Vitals: Period Temp Pulse Resp BP Sys/Stubbs Pulse Ox Last 24 Hr 97.5 F-98.7 F 60-122 10-34 101-184/47-131 92-100 Exam: GENERAL: Patient is in no acute distress. NECK: Neck is supple. There is no JVD. No carotid bruits present. No thyroid masses. CVS: First and second heart sounds are normal. There is no S3 present. Regular rate and rhythm. RESPIRATORY: Lungs are clear to auscultation without any rales or rhonchi. ABDOMEN: Soft and non-tender. Bowel sounds are present. There is no hepatosplenomegaly. EXT: There is no palpable edema. Peripheral pulses are present. Skin: No rashes Central Nervous system: General: Alert, awake and Oriented x 3 Speech: Fluent Comprehension: Intact and normal Facial expressions: Normal Cranial Nerves: CN1/Olfactory: Normal CN II/ Optic: Normal, Visual Flores unreliable CN III, and : BLAKE & EOMI CN V: Normal & intact CN VII: face is symmetric CNVIII: Normal CN XI/X/XI/XII: Intact and Normal Motor: Bulk and Tone is normal. Strength in the right 3-4/5 Strength in the left 3-4/5 Sensory: Grossly intact for all the modalities of PP, LT and temp sense Reflexes: 1+ and symmetrical Cerebellar function: Normal finger to nose and heel to ken testing. Toes: Equivocal Gait: Cannot be assessed Results - Labs CBC & BMP: 08/20/16 03:52 08/20/16 03:52 Assessment and Plan (1) Altered mental status, unspecified Status: Acute Assessment and plan: This is most likely due to delirium. Etiology is multifactorial. No clear evidence of a stroke. Start Seroquel 25 mg half a tab at at bedtime to see how that helps. No further intervention at this time. I will be away for 1 week. If further neurological intervention needed then patient will have to be transfer to another facility. Thank you for the consult Current Visit: Yes
--- NOTE | 2016-08-20 18:03 | Hospitalist Progress Note ---
Assessment and Plan (1) Atrial flutter Status: Chronic Current Visit: Yes (2) Altered mental status, unspecified Status: Acute Assessment and plan: Multifactorial, but no evidence of stroke per Neurology. Continue Seroquel QHS. Current Visit: Yes (3) Bradyarrhythmia Status: Acute Assessment and plan: S/P pacemaker placement. Tolerated the procedure well. Cardiology following. Current Visit: Yes (4) Hypertension Status: Acute Assessment and plan: BP being controlled currently on Nitro infusion, norvasc and isinopril. Will continue for now. Current Visit: Yes (5) Encephalopathy acute Status: Acute Current Visit: Yes Hospitalist: Subjective Interval history: Patient seen immediately post- pacemaker placement. Very somnolent, but in no distress. Exam - Constitutional Vitals: Period Temp Pulse Resp BP Sys/Stubbs Pulse Ox Last 24 Hr 97.2 F-98.7 F 60-122 10-34 101-184/47-131 92-100 General appearance: normal weight, no acute distress - Head Head exam: Present: normal inspection, normocephalic, atraumatic - Neck Neck exam: Present: normal inspection. Absent: lymphadenopathy, thyromegaly - Respiratory Respiratory exam: Present: clear to auscultation bilaterally. Absent: rales, rhonchi, wheezes - Cardiovascular Cardiovascular exam: Present: regular rate and rhythm. Absent: gallop, rubs - GI/Abdominal GI/Abdominal exam: Present: normal bowel sounds, soft. Absent: distended, rebound - Extremities Exam Extremities exam: Present: normal inspection - Neurological Exam Neurological exam: Present: other (Somnolent) - Skin Skin exam: Present: normal color, warm, dry Results - Labs CBC & BMP: 08/20/16 03:52 08/20/16 03:52 Quality Measures - VTE Contraindication to Pharmacological VTE Prophylaxis: Already on Theraputic Agent , No Prophylaxis Needed
[2016-08-20] MEDS: DOBUTamine 500 MG/250 ML PREMIX IV SCH (19:24)
[2016-08-20] MEDS: NITROGLYCERIN DRIP 50 MG/250 ML BOTTLE IV SCH (19:49)
[2016-08-20] MEDS: QUEtiapine 25 MG TABLET PO SCH (20:08)
--- NOTE | 2016-08-21 06:57 | XRay Report ---
2 view chest. Indication: Lead placement. Pacemaker placement. Comparison: August 20, 2016. The cardiac silhouette is enlarged, similar to the previous exam. Coronary artery calcification and/or stent placement visible over the left heart border. The pulmonary vasculature is normal. There is atelectasis present at the left lung base, similar to the previous exam. A small left pleural effusion cannot be excluded. There is a double density noted at the right hemidiaphragm. This may be related to overlapping shadows and possible bowel in the right upper quadrant. However, if there is any evidence of abdominal pain, abdomen flat and erect or decubitus films are recommended to exclude free air. Degenerative changes of the spinal column and shoulders. Impression: 1. Cardiomegaly. 2. Stable left basilar atelectasis. 3. Double density at the right hemidiaphragm, see above comments. PROCEDURE INTERPRETED AT [facility] DEPARTMENT OF RADIOLOGY Final Report Signed by: Dr. Celine Bolanos
--- NOTE | 2016-08-21 08:02 | Hospitalist Progress Note ---
Hospitalist: Subjective Interval history: Patient still with some confusion. No fever. Tolerating oral intake. Patient denies any chest pain or trouble breathing at this time. Exam - Constitutional Vitals: Period Temp Pulse Resp BP Sys/Stubbs Pulse Ox Last 24 Hr 97.2 F-98.4 F 60-82 1025 113-167/62-103 92-100 Exam: General :pleasant, confused, elderly lying in the hospital bed in no acute distress. HEENT: Pupils are equal and reactive to light. conjunctive are pink. Sclerae clear CV: Regular rate and rhythm diminished heart tones no rubs or gallops appreciated LUNGS: Clear to auscultation bilaterally anteriorly diminished at the bases nonlabored breathing noted Abdomen: Soft, nontender, nondistended, positive bowel sounds. No organomegaly or masses appreciated Extremities: Warm and well-perfused. No clubbing cyanosis or edema. Left arm is in a sling Neuro: Nonlocalizing. A full neuro exam was not completed on the left upper extremity due to sling. Results - Labs CBC & BMP: 08/20/16 03:52 08/21/16 08:14 Labs: 08/18- Flu negative 08/19 Blood and urine cultures are pending - Impressions (1) Atrial flutter with Sick sinus syndrome/ Second degree AVB Mobitz type 2 Status: Chronic Current Visit: Yes - S/P pacemaker 08/20. management per cardiology. Plans to resume Xarelto 08/22 per cardiology recs (2) Acute encephalopathy possibly due to metabolic vs. toxic vs. other causes. Neuro does not feel it is related to neuroischemic event Status: Acute Assessment and plan: Multifactorial, but no evidence of stroke per Neurology. Continue Seroquel QHS. Current Visit: Yes (3) Bradyarrhythmia Status: Acute Assessment and plan: S/P pacemaker placement. Tolerated the procedure well. Cardiology following. Current Visit: Yes (4) Hypertension Status: Acute Assessment and plan: BP being controlled currently on Nitro infusion, norvasc and isinopril. Will continue for now. Current Visit: Yes (5) CAD - Cont medical management. Cards following (6) Abnormal TSH. - Free T4 was normal. Will check total T3 and if abnormal, start synthroid (7) Acute renal failure on suspected CKD stage 3 - creatinine improving. recheck RFP. (8) Hypomagnesemia - recheck labs Discussed with nurse. No family at the bedside. We will transfer to the floor with telemetry if can get around close to the nursing station as patient will likely need a sitter and no family is available at this time. DVT prophylaxis-SCDs for now. Plans to resume Xarelto in a.m. per cardiology recommendations Quality Measures - VTE Contraindication to Pharmacological VTE Prophylaxis: Already on Theraputic Agent , No Prophylaxis Needed
--- NOTE | 2016-08-21 08:17 | EKG Report ---
Stationary ECG Study [facility] Test Date: 08/21/2016 7:56:15 AM Pat Name: LINDA JOSHI Department: Room: 128 Gender: M [place]: Jared : 1930 Requested by: Kulwinder Benito Order Number: [id number] Reading MD: IGOR OBRIEN Intervals [place] Rate: 62 P: 268 AK: 68 QRS: -32 QRSD: 129 T: 118 QT: 382 QTc: 387 Interpretive Statements ATRIAL FLUTTER LEFT AXIS DEVIATION RSR (QR) IN V1/V2 CONSISTENT WITH RIGHT VENTRICULAR CONDUCTION DELAY POSSIBLE LEFT VENTRICULAR HYPERTROPHY WITH REPOLARIZATION ABNORMALITY CANNOT RULE OUT SEPTAL INFARCT Electronically Signed On 08-23-16 11:24:42 CDT by IGOR OBRIEN [email or web address]
[2016-08-21] MEDS: ASPIRIN EC 81 MG TABLET PO SCH (08:44)
[2016-08-21] MEDS: amLODIPine 10 MG TABLET PO SCH (08:44)
[2016-08-21] MEDS: ROSUVASTATIN 10 MG TABLET PO SCH (08:44)
[2016-08-21] MEDS: PANTOPRAZOLE 40 MG TABLET PO SCH (08:45)
[2016-08-21] MEDS: TAMSULOSIN 0.4 MG CAPSULE PO SCH (08:45)
[2016-08-21] MEDS: LISINOPRIL 20 MG TABLET PO SCH (08:45)
[2016-08-21] MEDS: DUTASTERIDE 0.5 MG CAPSULE PO SCH (08:45)
[2016-08-21 08:56] LABS: Albumin 3.4 G/DL (3.4-5.0); Calcium 8.1 MG/DL (8.5-10.1); Osmolality,Calculated 281.1 MOS/KG (273-304); Phosphorous 2.5 MG/DL (2.5-4.9)
[2016-08-21] MEDS: SODIUM CHLORIDE 0.9% 1,000 ML IV SCH (17:59)
--- NOTE | 2016-08-21 21:08 | Cardiology Progress Note ---
Karen Canela April, RN, am scribing for, and in the presence of, Mark Lechuga MD 21:08. Assessment and Plan (1) Atrial flutter Status: Chronic Assessment and plan: Assessment/plan/recommendation: Atrial flutter rate is controlled. Delirium continues. Is waxing and waning of his mental function. 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 Dr. Matute think she is not at a neuro ischemic event. Cannot get an MRI for another 6 weeks. Continue support. Ambulate. Get physical therapy involved may need [facility] re[facility] or swing bed or [facility]AC/[facility]. Will restart the Eliquis tomorrow. Current Visit: Yes (2) Altered mental status, unspecified Status: Acute Current Visit: Yes (3) Hypertension Status: Acute Current Visit: Yes (4) History of CVA (cerebrovascular accident) Status: Acute Current Visit: Yes (5) History of coronary artery stent placement Status: Acute Current Visit: Yes (6) Delirium Status: Acute Current Visit: Yes (7) Bradyarrhythmia Status: Acute Current Visit: Yes (8) Encephalopathy acute Status: Acute Current Visit: Yes Cardiology - PN: Subj Interval history: [employer] Operator: Dr. Lechuga Mr. Betancourt is seen resting in bed in no acute distress. He had single chamber pacemaker placed to his left chest yesterday. There is minimal bruising noted to site, no evidence of bleeding or hematoma. Currently telemetry monitoring shows atrial flutter with heart rates in the 70s and 80s. Echocardiogram done August 18 with ejection fraction 50%. He continues to be hypertensive, current blood pressure is 162/82. He is on lisinopril 20 mg daily and Norvasc 10 mg daily. His creatinine continues to improve, it is down to 1.2 today. Potassium magnesium are within normal range. He continues to be confused this morning. His son who is at bedside said yesterday he was not confused at one point and they had a good conversation with him, but later he became confused again. His Xarelto continues to be held from his pacemaker implant. We will restart this tomorrow morning. Exam (Progress Note) - Constitutional Vitals: Period Temp Pulse Resp BP Sys/Stubbs Pulse Ox Last 24 Hr 97.2 F-98.4 F 60-82 10- 113-167/62-103 95-99 General appearance: normal weight, no acute distress - Head Head exam: Absent: abrasion, hematoma - Eye Eye exam: Absent: periorbital swelling, laceration to eyelids - Respiratory Respiratory exam: Present: clear to auscultation bilaterally. Absent: accessory muscle use, chest wall tenderness - Cardiovascular Cardiovascular exam: Present: regular rate and rhythm. Absent: diastolic murmur , rubs, systolic murmur - GI/Abdominal GI/Abdominal exam: Present: normal bowel sounds, soft. Absent: distended, tenderness - Extremities Exam Extremities exam: Absent: edema - Neurological Exam Neurological exam: Present: alert, oriented X3 - Psychiatric Psychiatric exam: Present: normal affect, normal mood - Skin Skin exam: Present: warm, dry, other (Pacemaker incision site without evidence of dehiscence or infection) Result/EKG - Labs CBC & BMP: 08/20/16 03:52 08/21/16 08:14 Lab Results: I have reviewed the past 24 hour labs Labs: Laboratory Results - last 24 hr 08/21/16 08/21/16 08:14 08:14 Sodium 142 Potassium 4.0 Chloride 110 H Carbon Dioxide 23 Anion Gap 13.0 BUN 13 Creatinine 1.20 GFR Calculation 63 BUN/Creatinine Ratio 10.00 Glucose 88 Calculated Osmolality 281.1 Calcium 8.1 L Phosphorus 2.5 Magnesium 2.0 Albumin 3.4 - EKG EKG results: interpreted by me (Atrial flutter) Quality Measures - VTE Contraindication to Pharmacological VTE Prophylaxis: Already on Theraputic Agent , No Prophylaxis Needed IAnkush Dale, MD, personally performed the services described in this documentation, ascribed by Monica Jones RN in my presence, and it is both accurate and complete .
[2016-08-21] MEDS: QUEtiapine 25 MG TABLET PO SCH (23:46)
[2016-08-22] MEDS: HALOPERIDOL 5 MG/ML AMP IV PRN (01:39)
[2016-08-22] MEDS: ZIPRASIDONE 20 MG/1 ML VIAL IM PRN ×2 (02:46→18:23)
[2016-08-22] MEDS: ROSUVASTATIN 10 MG TABLET PO SCH (11:23)
[2016-08-22] MEDS: DUTASTERIDE 0.5 MG CAPSULE PO SCH (11:23)
[2016-08-22] MEDS: LISINOPRIL 20 MG TABLET PO SCH (11:23)
[2016-08-22] MEDS: amLODIPine 10 MG TABLET PO SCH (11:23)
[2016-08-22] MEDS: PANTOPRAZOLE 40 MG TABLET PO SCH (11:23)
[2016-08-22] MEDS: ASPIRIN EC 81 MG TABLET PO SCH (11:23)
[2016-08-22] MEDS: TAMSULOSIN 0.4 MG CAPSULE PO SCH (11:23)
[2016-08-22] MEDS: RIVAROXABAN 15 MG TABLET PO SCH (11:24)
--- NOTE | 2016-08-22 15:17 | Cardiology Progress Note ---
Assessment and Plan - Time spent with patient Time spent with patient: Greater than 30 minutes (1) Altered mental status, unspecified Status: Acute Assessment and plan: See plan of care listed below Current Visit: Yes (2) Bradyarrhythmia Status: Resolved Assessment and plan: See plan of care listed below Current Visit: Yes (3) History of CVA (cerebrovascular accident) Status: Chronic Assessment and plan: See plan of care listed below Current Visit: Yes (4) History of coronary artery stent placement Status: Chronic Assessment and plan: See plan of care listed below Current Visit: Yes (5) Hypertension Status: Chronic Assessment and plan: See plan of care listed below Current Visit: Yes (6) Status post placement of cardiac pacemaker Status: Chronic Assessment and plan: See plan of care listed below Current Visit: Yes Cardiology - PN: Subj Interval history: TREASURY MANAGER: DR. SEGURA SUMMARY: Patient was admitted for altered mental status. He was found to be having significant pauses. He underwent elective single-chamber pacemaker Saturday, August 20, 2016. His altered mental status has not improved. He underwent CT of head which revealed no significant abnormality. Unfortunately, he cannot undergo MRI for 6 weeks as he has a recent pacemaker insertion. He continues to have paroxysms of atrial fibrillation and atrial flutter. Echocardiogram reveals EF 50%. AUGUST 22, 2016: Overnight, patient's vital signs are stable. Xarelto was restarted this morning. We will continue to monitor labs closely. Son is at the bedside and reports his father had a very restless night. He is sleeping a lot today. He continues to require restraints and is uncooperative at times. Systolic blood pressure averaging 140s-180s. I will adjust medications accordingly for better blood pressure control today. ASSESSMENT/PLAN: 1. ATRIAL FLUTTER -Xarelto was reinitiated this morning at 15 mg daily. We will monitor labs and pacemaker insertion site carefully 2. ALTERED MENTAL STATUS -appreciate neurology's input 3. S/P SINGLE CHAMBER PACEMAKER IMPLANTATION - left chest wall without hematoma. 4. HYPERTENSION -suboptimally controlled. Will increase lisinopril. Conceivably, could try to wean amlodipine and start a beta-maldonado now that he has a pacemaker 5. HISTORY OF CAD -no complaints of angina Exam (Progress Note) - Constitutional Vitals: Period Temp Pulse Resp BP Sys/Stubbs Pulse Ox Last 24 Hr 97.3 F-98.2 F 60-99 16-20 144-171/76-81 94-98 Exam: General: [Appears well with no apparent distress.] [Pleasant and cooperative. ] [Appears comfortable.] HEENT: [PERRL, normocephalic, atraumatic. Mucous membranes moist. No jaundice noted. Conjunctiva moist and clear, sclerae anicteric] Neck: No JVD/HJR, no thyromegaly or lymphadenopathy noted. No carotid bruit appreciated Cardiac: [Regular rate and rhythm.] [Soft II/ holosystolic murmur heard best at fifth intercostal space the left. Lungs: [Clear to auscultation without accessory muscle use to assist the respiratory pattern.] Not requiring oxygen Chest: Left upper chest incision healing well without dehiscence or drainage. No edema. Minimal ecchymosis Abdomen: Soft, bowel sounds normoactive. Nontender and nondistended. No abdominal bruit or thrill noted. No masses noted. Musculoskeletal: No fluid collection. Decreased range of motion is noted. Extremities: Left arm in sling. No clubbing, cyanosis noted. [ No edema noted. ] Upper extremity pulses 2+. Lower extremity pulses 2+. Capillary refill less than 3 seconds. Skin: No unusual lesions or rashes. No skin breakdown appreciated. Neuro: Awake, alert and oriented 3. Moves all extremities well without hemiparesis or paralysis. No essential tremor is appreciated. Result/EKG - Labs CBC & BMP: 08/20/16 03:52 08/21/16 08:14 Lab Results: I have reviewed the past 24 hour labs - EKG EKG results: interpreted by me EKG shows: atrial fibrillation Quality Measures - VTE Contraindication to Pharmacological VTE Prophylaxis: Already on Theraputic Agent , No Prophylaxis Needed
--- NOTE | 2016-08-22 15:20 | Hospitalist Progress Note ---
Hospitalist: Subjective Interval history: Son reports pt was more confused and lethargic on Seroquel and refused any further doses. Today more awake and alert and speech is clearer. No fever. Tolerating 100% breakfast and 75% of lunch. No abd pain. No nausea or vomiting. Exam - Constitutional Vitals: Period Temp Pulse Resp BP Sys/Stubbs Pulse Ox Last 24 Hr 97.3 F-98.2 F 60-99 16-20 144-171/76-81 94-98 Exam: General :pleasant, intermittent confused speech, elderly lying in the hospital bed in no acute distress. HEENT: Pupils are equal and reactive to light. conjunctive are pink. Sclerae clear CV: Regular rate and rhythm diminished heart tones no rubs or gallops appreciated LUNGS: Clear to auscultation bilaterally anteriorly diminished at the bases nonlabored breathing noted Abdomen: Soft, nontender, nondistended, positive bowel sounds. No organomegaly or masses appreciated Extremities: Warm and well-perfused. No clubbing cyanosis or edema. Left arm is in a sling Neuro: Nonlocalizing. A full neuro exam was not completed on the left upper extremity due to sling. Results - Labs CBC & BMP: 08/20/16 03:52 08/21/16 08:14 Labs: 08/18- Flu negative 08/19 Blood cultures show no growth to date at 3 days and urine cultures negative - Impressions (1) Atrial flutter with Sick sinus syndrome/ Second degree AVB Mobitz type 2 Status: Chronic Current Visit: Yes - S/P pacemaker 08/20. management per cardiology. Plans to resume Xarelto 08/22 per cardiology recs (2) Acute encephalopathy possibly due to metabolic vs. toxic vs. other causes. Neuro does not feel it is related to neuroischemic event Status: Acute Assessment and plan: Multifactorial, but no evidence of stroke per Neurology. DC Seroquel QHS. Check CT-A of head and neck. Current Visit: Yes (3) Bradyarrhythmia Status: Acute Assessment and plan: S/P pacemaker placement. Tolerated the procedure well. Cardiology following. Current Visit: Yes (4) Hypertension Status: Acute Assessment and plan: BP being controlled currently on Nitro infusion, norvasc and isinopril. Will continue for now. Current Visit: Yes (5) CAD - Cont medical management. Cards following (6) Abnormal TSH. - Free T4 was normal. Awaiting total T3 and if abnormal, start synthroid (7) Acute renal failure on suspected CKD stage 3 - creatinine normal now. (8) Hypomagnesemia - replaced Consult rehab Discussed with nurse and son. Cont telemetry. DVT prophylaxis-SCDs/ Xarelto restarted this am. Consult PT/OT/ST as patient may need short term rehab. DC planning. Consult social work/ porter sample case. Quality Measures - VTE Contraindication to Pharmacological VTE Prophylaxis: Already on Theraputic Agent , No Prophylaxis Needed
--- NOTE | 2016-08-22 17:32 | CT Report ---
CT angio neck, CT angio head Indication: "Worsening expressive aphasia, history of stroke" CT ANGIOGRAM CAROTID ARTERIES DLP: 336 mGy*cm. One or more of the following dose reduction techniques was used: Automated exposure control, adjustment of the mA and/or kV according the patient size, or use of iterative reconstruction techniques. Technique: Axial thin cuts CT images were obtained from the aortic arch through the skull base during the arterial phase of contrast injection. 3-D vascular MIPs reconstructions and multiplanar reformats were evaluated. Omnipaque 350, 80 cc given. Comparison: None. Findings: Severity of stenosis based on NASCET criteria. Reference downstream ICA diameters are 3.7 mm on the right and 3.5 mm on the left. There is no measurable stenosis in either ICA origin with only minimal calcified plaque deposition present on either side. Common carotid arteries are widely patent. Both vertebral arteries are patent, left-sided dominant. Aortic arch is elongated and tortuous with calcified atheromatous disease but no dissection or aneurysm identified in the visualized components. Both subclavian arteries are patent. No cervical chain lymphadenopathy. 9 mm hypodensity right thyroid noted, likely nodule or cyst. No superior mediastinal lymphadenopathy. Pulmonary apices are clear. Osteopenia and degenerative changes cervical spine noted. Polypoid right maxillary mucosal thickening is present. Impression: 1. No measurable stenosis of either ICA origin. 2. 9 mm hypodensity right thyroid lobe, either cyst or nodule. 3. Right maxillary sinusitis. CT ANGIOGRAM [place] DLP: 336 mGy*cm. One or more of the following dose reduction techniques was used: Automated exposure control, adjustment of the mA and/or kV according the patient size, or use of iterative reconstruction techniques. Technique: Axial thin cut CT images were obtained from the skull base to the vertex during arterial phase of contrast injection. 3-D vascular MIPs reconstructions and multiplanar reformats were evaluated. Omnipaque 350, 80 cc given. Comparison: None. Findings: Primary inflow to the basilar system is via the left vertebral artery. The right vertebral artery is less than 1 mm diameter where it intersects the basilar system. Basilar artery terminates in bilateral PATIENT SERVICE TECHNICIAN PST which appear grossly unremarkable. Both internal carotid arteries are widely patent through the skull base despite some mild atheromatous disease. MCA and MISTI vascular territories appear symmetric. No intracranial aneurysmal disease. 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 No intracranial stenosis or occlusion identified. PROCEDURE INTERPRETED AT [facility] DEPARTMENT OF RADIOLOGY Final Report Signed by: Kulwinder Mosquera M.D.
[2016-08-22] MEDS: CARVEDILOL 3.125 MG TABLET PO SCH ×2 (21:59→22:00)
[2016-08-23 04:37] LABS: Basophils % 0.2 % (0.0-0.8); Eosinophils # 0.1 10*3/uL (0.0-0.87); Eosinophils % 1.5 % (0.00-10.9); Hematocrit 42.3 VOL% (42.0-52.0); Hemoglobin 14.1 GM/DL (14.0-18.0); Immature Granulocytes % 0.2 %; Immature Granulocytes Absolute 0.01 #; Lymphocytes # 0.9 10*3/uL (1.4-4.0); Lymphocytes % 14.5 % (21.2-54.2); Mean Corpuscular HGB Conc 33.3 GM/DL (32-36); Mean Corpuscular Hemoglobin 30 PG (27-34); Mean Corpuscular Volume 90.6 FL (87-102); Mean Platelet Volume 11.7 FL (9.6-12.0); Monocytes # 0.6 10*3/uL (0.11-0.8); Monocytes % 10.1 % (1.7-12.7); Neutrophils # 4.4 10*3/uL (1.4-7.4); Neutrophils % 73.5 % (38.7-73.9); Platelet Count 108 T/CUMM (130-400); Red Blood Count 4.67 MC/CUMM (3.8-5.5); Red Cell Distribution Width 13.9 % (9.3-17.3)
[2016-08-23 05:19] LABS: Calcium 8.4 MG/DL (8.5-10.1); Magnesium 1.9 MG/DL (1.8-2.4); Potassium 4.3 MMOL/L (3.5-5.1)
[2016-08-23] MEDS: RIVAROXABAN 15 MG TABLET PO SCH (11:03)
[2016-08-23] MEDS: ROSUVASTATIN 10 MG TABLET PO SCH (11:03)
[2016-08-23] MEDS: DUTASTERIDE 0.5 MG CAPSULE PO SCH (11:03)
[2016-08-23] MEDS: LISINOPRIL 20 MG TABLET PO SCH (11:04)
[2016-08-23] MEDS: CARVEDILOL 3.125 MG TABLET PO SCH ×2 (11:04→21:00)
[2016-08-23] MEDS: TAMSULOSIN 0.4 MG CAPSULE PO SCH (11:04)
[2016-08-23] MEDS: PANTOPRAZOLE 40 MG TABLET PO SCH (11:04)
[2016-08-23] MEDS: ASPIRIN EC 81 MG TABLET PO SCH (11:04)
[2016-08-23] MEDS: amLODIPine 10 MG TABLET PO SCH (11:04)
--- NOTE | 2016-08-23 11:48 | Hospitalist Progress Note ---
Hospitalist: Subjective Interval history: Pt was restless last night and received Geodon. No fever. Son states while asleep his speech is clear and understandable. No fever. No cp or SOB. After discussion with his brother he is now agreeable to the Seroquel low-dose at night. Exam - Constitutional Vitals: Period Temp Pulse Resp BP Sys/Stubbs Pulse Ox Last 24 Hr 97.6 F-98.4 F 60-92 16-20 152-166/72-106 96-98 Exam: General : Resting comfortably in no acute distress. CV: Regular rate and rhythm diminished heart tones no rubs or gallops appreciated LUNGS: Clear to auscultation bilaterally anteriorly diminished at the bases nonlabored breathing noted Abdomen: Soft, nontender, nondistended, positive bowel sounds. No organomegaly or masses appreciated Extremities: Warm and well-perfused. No clubbing cyanosis or edema. Left arm is in a sling Neuro: Moves all extremities to tactile stimulation Results - Labs CBC & BMP: 08/23/16 04:30 08/23/16 04:30 - Impressions (1) Atrial flutter with Sick sinus syndrome/ Second degree AVB Mobitz type 2 Status: Chronic Current Visit: Yes - S/P pacemaker 08/20. management per cardiology. Cont xarelto per cardiology recs (2) Acute encephalopathy possibly due to metabolic vs. toxic vs. other causes. He has the pacemaker now. Neuro does not feel it is related to neuroischemic event Status: Acute Assessment and plan: Multifactorial, but no evidence of stroke per Neurology. resume Seroquel QHS. CT -A of head and neck showed mild atherosclerotic disease and a right sinusitis which was not described as acute. He has no fever and WBC normal. Current Visit: Yes (3) Bradyarrhythmia Status: Acute Assessment and plan: S/P pacemaker placement. Tolerated the procedure well. Cardiology following. Current Visit: Yes (4) Hypertension Status: Acute Assessment and plan: BP being controlled on Norvasc, Coreg and lisinopril. Will continue for now. Current Visit: Yes (5) CAD - Cont medical management. Cards following (6) Newly diagnosed hypothyroidism. - TSH was high. Free T4 was normal. total T3 low at 71. Start synthroid. Recheck TSH and free T4 in 4-6 weeks (7) Acute renal failure on suspected CKD stage 3 - creatinine normal now. (8) Hypomagnesemia - replaced Awaiting rehab Discussed with nurse, caser in and son. Cont telemetry. DVT prophylaxis-SCDs/ Xarelto restarted this am. Awaiting PT/OT/ST eval and pt likely needs short term rehab. DC planning. Quality Measures - VTE Contraindication to Pharmacological VTE Prophylaxis: Already on Theraputic Agent , No Prophylaxis Needed
[2016-08-23] MEDS ORDERED: MELATONIN 3 MG TABLET PO PRN (11:52)
[2016-08-23] MEDS ORDERED: TUBERCULIN SKIN TEST 0.1 ML SYRINGE INTRADERM ONE (13:58)
--- NOTE | 2016-08-23 14:12 | Case Mgmt Physician Query Form ---
TB Signs and Symptoms Screening ([place]) INSTRUCTIONS: To be completed annually on residents/staff with a significant Tuberculin Skin Test (TST) upon admission/hire or a prior significant TST. To be completed on all staff at hire. Please respond to each listed symptom with an (X) in either the "YES" or "NO" box. Do you currently have any of the following symptoms: YES NO ( ) (x ) A cough If yes, is it: ( ) Productive ( ) Non- productive ( ) ( x) Hemoptysis (spitting up blood) ( ) ( x) Chest pains ( ) ( x) Weight Loss ( ) (x ) Fever ( ) ( x) Night Sweats (x ) ( ) Weakness ( ) ( x) Loss of Appetite ( ) ( x) Difficulty Breathing If you answered YES" to any of the above questions, how long have symptoms been present? at least 1 week Comments: If you have any questions, please contact me. thank you, Carlitos Alexander RN Case Manager O:[phone] P: [phone] F: [phone] E:[email or web address]
[2016-08-23] MEDS: LEVOTHYROXINE 25 MCG TABLET PO SCH (14:33)
--- NOTE | 2016-08-23 20:04 | Cardiology Progress Note ---
I, Monica Jones, RN, am scribing for, and in the presence of, Mark Lechuga MD 20:03. Assessment and Plan (1) Atrial flutter Status: Chronic Assessment and plan: Assessment/plan/recommendation 08/21/16: Atrial flutter rate is controlled. Delirium continues. Is waxing and waning of his mental function. 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 Dr. Matute think she is not at a neuro ischemic event. Cannot get an MRI for another 6 weeks. Continue support. Ambulate. Get physical therapy involved may need [facility] rehab or swing bed or [facility]. Will restart the Eliquis tomorrow. Assessment and plan 08/22/2016: Delirium continues. CTA is negative. Blood pressure is mildly elevated. Also at least one time he had A. fib RVR. Will start on carvedilol 3.125 mg p.o. now to better control his blood pressure and CECILIA Samuel did not agree with him. We are considering giving a trial of Geodon. Hopefully his neuro status will improve. The family relates a week ago he was driving and functioning and acting normally, with virtually normal cognitive function. 08/23/2016:Assessment and plan--no chest pain shortness of breath. Still confused. Blood pressure been slightly elevated but is better now. Continue the carvedilol. Watch blood pressure. Recent CT angiogram was negative. Await resolution of the delirium. Continue support. I had a long discussion with his son regarding his overall status and the plan. We are to try Seroquel again. Current Visit: Yes (2) Status post placement of cardiac pacemaker Status: Chronic Current Visit: Yes (3) Altered mental status, unspecified Status: Acute Current Visit: Yes (4) Hypertension Status: Chronic Current Visit: Yes (5) Delirium Status: Acute Current Visit: Yes (6) Encephalopathy acute Status: Acute Current Visit: Yes (7) History of CVA (cerebrovascular accident) Status: Chronic Current Visit: Yes (8) History of coronary artery stent placement Status: Chronic Current Visit: Yes Cardiology - PN: Subj Interval history: Juvenile Counselor: Dr. Lechuga Mr. Alberto is seen resting in bed in no acute distress. He does not respond to verbal stimuli. His son is at bedside, he says he has still been confused. States he did sleep better last night but that he talked in his sleep. Telemetry monitoring currently shows atrial flutter with heart rates in the 70s. Pressures have been elevated, most recent blood pressure 166/106. Carvedilol 3.125 p.o. twice daily was started yesterday. Pacemaker site to left chest does not show any evidence of dehiscence or infection. Slight bruising, but no hematoma or bleeding noted. Left arm is in sling. Exam (Progress Note) - Constitutional Vitals: Period Temp Pulse Resp BP Sys/Stubbs Pulse Ox Last 24 Hr 97.6 F-98.4 F 60-92 16-20 152-166/72-106 96-98 General appearance: normal weight, no acute distress - Head Head exam: Absent: abrasion, hematoma - Eye Eye exam: Absent: periorbital swelling, laceration to eyelids - Respiratory Respiratory exam: Present: clear to auscultation bilaterally, other (Not requiring oxygen). Absent: accessory muscle use, chest wall tenderness - Cardiovascular Cardiovascular exam: Present: regular rate and rhythm, systolic murmur - GI/Abdominal GI/Abdominal exam: Present: normal bowel sounds, soft. Absent: distended - Extremities Exam Extremities exam: Present: other (Left arm in sling). Absent: edema - Neurological Exam Neurological exam: Absent: alert, oriented X3 - Skin Skin exam: Present: warm, dry Result/EKG - Labs CBC & BMP: 08/23/16 04:30 08/23/16 04:30 Lab Results: I have reviewed the past 24 hour labs Labs: Laboratory Results - last 24 hr 08/21/16 08/23/16 08/23/16 08:14 04:30 04:30 WBC 6.0 RBC 4.67 Hgb 14.1 D Hct 42.3 MCV 90.6 MCH 30 MCHC 33.3 RDW 13.9 Plt Count 108 L D MPV 11.7 Neut % (Auto) 73.5 Lymph % (Auto) 14.5 L [place] % (Auto) 10.1 Eos % (Auto) 1.5 Baso % (Auto) 0.2 Neut # (Auto) 4.4 Lymph # (Auto) 0.9 L [place] # (Auto) 0.6 Eos # (Auto) 0.1 Baso # (Auto) 0.0 Immature Gran % 0.2 Nucleated RBC % 0.0 Immature Gran # 0.01 Nucleated RBCs # 0.00 Sodium 143 Potassium 4.3 Chloride 110 H Carbon Dioxide 24 Anion Gap 13.3 BUN 22 H Creatinine 1.20 GFR Calculation 63 BUN/Creatinine Ratio 18.00 Glucose 101 Calculated Osmolality 287.0 Calcium 8.4 L Magnesium 1.9 Total T3 72 L - EKG EKG results: interpreted by me (Atrial flutter) Quality Measures - VTE Contraindication to Pharmacological VTE Prophylaxis: Already on Theraputic Agent , No Prophylaxis Needed IAnkush Dale, MD, personally performed the services described in this documentation, ascribed by Monica Jones RN in my presence, and it is both accurate and complete .
[2016-08-23] MEDS: QUEtiapine 25 MG TABLET PO SCH ×2 (21:00→23:37)
[2016-08-24 05:27] LABS: Basophils % 0.2 % (0.0-0.8); Eosinophils # 0.1 10*3/uL (0.0-0.87); Eosinophils % 1.9 % (0.00-10.9); Hematocrit 40.2 VOL% (42.0-52.0); Hemoglobin 13.3 GM/DL (14.0-18.0); Immature Granulocytes % 0.3 %; Immature Granulocytes Absolute 0.02 #; Lymphocytes # 1.3 10*3/uL (1.4-4.0); Lymphocytes % 21.9 % (21.2-54.2); Mean Corpuscular HGB Conc 33.1 GM/DL (32-36); Mean Corpuscular Hemoglobin 30 PG (27-34); Mean Corpuscular Volume 90.7 FL (87-102); Mean Platelet Volume 11.6 FL (9.6-12.0); Monocytes # 0.8 10*3/uL (0.11-0.8); Monocytes % 12.9 % (1.7-12.7); Neutrophils # 3.6 10*3/uL (1.4-7.4); Neutrophils % 62.8 % (38.7-73.9); Platelet Count 110 T/CUMM (130-400); Red Blood Count 4.43 MC/CUMM (3.8-5.5); Red Cell Distribution Width 13.8 % (9.3-17.3); White Blood Count 5.8 T/CUMM (4-12)
[2016-08-24 06:01] LABS: Calcium 8.3 MG/DL (8.5-10.1); Osmolality,Calculated 292.8 MOS/KG (273-304); Potassium 3.9 MMOL/L (3.5-5.1)
[2016-08-24] MEDS: LEVOTHYROXINE 25 MCG TABLET PO SCH ×2 (07:11→12:49)
--- NOTE | 2016-08-24 10:36 | XRay Report ---
Referring Physician: Janny Mackey Exam: XR chest 1V portable Date: August 24, 2016 at 9:54 AM Reason: Edema, post pacemaker placement Comparison: Chest 2 views August 21, 2016 Findings: The cardiac silhouette is again enlarged, and a single lead cardiac pacing device is in place. There is mild density at the left lung base, which is most consistent with atelectasis, although pneumonia is not excluded. No pneumothorax or pleural effusion is identified. No acute osseous process is seen. Impression: 1. Cardiomegaly. 2. There is mild density at the left lung base. This is most consistent with atelectasis, but pneumonia is not excluded. PROCEDURE INTERPRETED AT [facility] DEPARTMENT OF RADIOLOGY Final Report Signed by: Dr. Shailesh Duran
--- NOTE | 2016-08-24 11:30 | Hospitalist Progress Note ---
Hospitalist: Subjective Interval history: Pt slept well last night. Ate dinner and lunch well yesterday per son. No fever. Sat up in chair 4 hours yesterday. +BM Exam - Constitutional Vitals: Period Temp Pulse Resp BP Sys/Stubbs Pulse Ox Last 24 Hr 97.6 F-99.7 F 61-65 16-18 130-192/68-92 94-98 Exam: General : Resting comfortably in no acute distress. CV: Regular rate and rhythm diminished heart tones no rubs or gallops appreciated. Edema, fluctuant around pacemaker site. No leakage, increased warmth. LUNGS: Clear to auscultation bilaterally anteriorly diminished at the bases nonlabored breathing noted Abdomen: Soft, nontender, nondistended, positive bowel sounds. No organomegaly or masses appreciated Extremities: Warm and well-perfused. No clubbing cyanosis or edema. Left arm is in a sling Neuro: Moves all extremities to tactile stimulation Results - Labs CBC & BMP: 08/24/16 05:08 08/24/16 05:08 - Impressions (1) Atrial flutter with Sick sinus syndrome/ Second degree AVB Mobitz type 2 Status: Chronic Current Visit: Yes - S/P pacemaker 08/20. management per cardiology. Hold xarelto due to possible bleeding around pacemaker. I have asked the nurse to notify cardiology. (2) Acute encephalopathy possibly due to metabolic vs. toxic vs. other causes. He has the pacemaker now. Neuro does not feel it is related to neuroischemic event- improving. Status: Acute Assessment and plan: Multifactorial, but no evidence of stroke per Neurology. Cont low dose Seroquel QHS. CT-A of head and neck showed mild atherosclerotic disease and a right sinusitis which was not described as acute. He has no fever and WBC normal. Current Visit: Yes (3) Bradyarrhythmia Status: Acute Assessment and plan: S/P pacemaker placement. Tolerated the procedure well. Cardiology following. Current Visit: Yes (4) Hypertension Status: Acute Assessment and plan: BP being controlled on Norvasc, Coreg and lisinopril. Will continue for now. Current Visit: Yes (5) CAD - Cont medical management. Cards following (6) Newly diagnosed hypothyroidism. - TSH was high. Free T4 was normal. total T3 low at 71. Cont synthroid. Will need recheck TSH and free T4 in 4-6 weeks (7) Acute renal failure on suspected CKD stage 3 - creatinine normal now. (8) Hypomagnesemia - replaced Awaiting rehab placement and clearance by all consultants. Discussed with nurse, case therapist and son. Cont telemetry. DVT prophylaxis-SCDs. Xarelto held 08/24 due to possible bleeding around pacemaker. Cont PT/OT/ST eval. Pt will likely need short term rehab. DC planning. Quality Measures - VTE Contraindication to Pharmacological VTE Prophylaxis: Already on Theraputic Agent , No Prophylaxis Needed
[2016-08-24] MEDS: RIVAROXABAN 15 MG TABLET PO SCH (11:39)
[2016-08-24] MEDS: ROSUVASTATIN 10 MG TABLET PO SCH (12:49)
[2016-08-24] MEDS: PANTOPRAZOLE 40 MG TABLET PO SCH (12:50)
[2016-08-24] MEDS: CARVEDILOL 3.125 MG TABLET PO SCH ×2 (12:50→21:46)
[2016-08-24] MEDS: LISINOPRIL 20 MG TABLET PO SCH (12:50)
[2016-08-24] MEDS: DUTASTERIDE 0.5 MG CAPSULE PO SCH (12:50)
[2016-08-24] MEDS: TAMSULOSIN 0.4 MG CAPSULE PO SCH (12:50)
[2016-08-24] MEDS: ASPIRIN EC 81 MG TABLET PO SCH (12:50)
[2016-08-24] MEDS: amLODIPine 10 MG TABLET PO SCH (12:50)
--- NOTE | 2016-08-24 20:01 | Cardiology Progress Note ---
I, Chhaya Blanco RN, am scribing for, and in the presence of, Lona Lechuga MD 20:00. Assessment and Plan - Time spent with patient Time spent with patient: Greater than 30 minutes (1) Atrial flutter Status: Chronic Assessment and plan: Assessment/plan/recommendation 08/21/16: Atrial flutter rate is controlled. Delirium continues. Is waxing and waning of his mental function. 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 Dr. Matute think she is not at a neuro ischemic event. Cannot get an MRI for another 6 weeks. Continue support. Ambulate. Get physical therapy involved may need [facility] rehab or swing bed or LT[facility]. Will restart the Eliquis tomorrow. Assessment and plan 08/22/2016: Delirium continues. CTA is negative. Blood pressure is mildly elevated. Also at least one time he had A. fib RVR. Will start on carvedilol 3.125 mg p.o. now to better control his blood pressure and CECILIA Samuel did not agree with him. We are considering giving a trial of Geodon. Hopefully his neuro status will improve. The family relates a week ago he was driving and functioning and acting normally, with virtually normal cognitive function. 08/23/2016:Assessment and plan--no chest pain shortness of breath. Still confused. Blood pressure been slightly elevated but is better now. Continue the carvedilol. Watch blood pressure. Recent CT angiogram was negative. Await resolution of the delirium. Continue support. I had a long discussion with his son regarding his overall status and the plan. We are to try Seroquel again. August 24, 2016: Plan/assessment: No angina. He has not feel his heart flutter. Rate is controlled. His confusion continues. We are trying Seroquel at low-dose to see if it helps him sleep better and may resolve the delirium. CTA of the carotids was negative. I looked it where the pacemaker was placed. There is some edema from the surgery site but I doubt there is a pocket of blood. Will hold the Xarelto and watch. The above was discussed with the patient and his family. Current Visit: Yes (2) Status post placement of cardiac pacemaker Status: Chronic Current Visit: Yes (3) Encephalopathy acute Status: Acute Current Visit: Yes (4) Second degree AV block, Mobitz type II Status: Acute Current Visit: Yes (5) Sick sinus syndrome due to SA node dysfunction Status: Acute Current Visit: Yes (6) History of CVA (cerebrovascular accident) Status: Chronic Current Visit: Yes (7) History of coronary artery stent placement Status: Chronic Current Visit: Yes (8) Hypertension Status: Chronic Current Visit: Yes Cardiology - PN: Subj Interval history: PRIMARY FILM WAXER: DR. LONA LECHUGA Mr. Betancourt is an 85-year-old male with past medical history of hypertension, CAD with previous coronary stenting, chronic atrial flutter after a CVA in 2013. He is usually fairly independent and drives to see his in a nursing facility on a regular basis. He was brought to the emergency room on 08/18/16 by his son after he was found confused, disoriented to time and place, and was agitated. While being worked up in the emergency room, he did have altered mental status change with pronounced confusion, and at the same time was noted to have ventricular rate in the 40s with AV block and long pauses up to 6 seconds. Patient was diagnosed with Mobitz type II second-degree AV block, and on 08/20/16 he had a single-chamber pacemaker implanted per Dr. Zeb Clinton. Pacemaker has been interrogated since implantation, and is found to be functioning appropriately. His atrial flutter has been rate controlled but he has had continued delirium and periods of extreme confusion. He has been evaluated by neurology, and Dr. Matute [facility] felt to be related to an underlying border line mental dysfunction and not in acute ischemic event. Unfortunately, he is unable to get an MRI for another 6 weeks due to recent pacemaker implant. CT of the head showed no acute process. He is now being managed by hospital medicine for acute encephalopathy. Patient is now being evaluated for LTAC/ swing bed placement. Cardiology is following for management of atrial flutter and post pacemaker implantation for second-degree AV block, sick sinus syndrome , SA node dysfunction. Patient is seen and examined in room on telemetry. Patient's son and daughter- in-law are present at bedside with patient. Patient is sleeping soundly at this time, and he is not anxious or agitated. He does not arouse to verbal stimuli. According to nursing staff and family, he has been asleep most of the night and into today after initiation of Seroquel and first dose given overnight. He does not appear to be in acute respiratory distress. He is hypertensive today, and systolic BP is averaging 170-190 mmHg. Telemetry review shows atrial flutter with atrial pacing. No overt ectopy or sustained arrhythmia seen. Labs reviewed. WBC 5.8. H&H is 13.3 and 40.2. Potassium 3.9. Magnesium 2.0. Creatinine is 1.3 with a GFR of 57. Exam (Progress Note) - Constitutional Vitals: Period Temp Pulse Resp BP Sys/Stubbs Pulse Ox Last 24 Hr 97.8 F-99.7 F 61-65 16-18 130-192/68-92 94-97 Exam: General appearance: normal weight, no acute distress - Head Head exam: Absent: abrasion, hematoma - Eye Eye exam: Absent: periorbital swelling, laceration to eyelids - Respiratory Respiratory exam: Present: clear to auscultation bilaterally. Absent: accessory muscle use, chest wall tenderness, rales, stridor, rhonchi, wheeze - Cardiovascular Cardiovascular exam: Present: regular rate and rhythm, systolic murmur. Absent : Bradycardia, tachycardia, irregular rhythm, murmur - GI/Abdominal GI/Abdominal exam: Present: normal bowel sounds, soft. Absent: distended, firm , tender to - Extremities Exam Extremities exam: Present: other (Left arm in sling). Absent: edema. Other: ( Left chest wall pacemaker site -site noted to be edematous today with mild ecchymotic bruising) (left upper extremity pulses are present and palpable.) - Neurological Exam Neurological exam: Present: Currently calm and is resting comfortably. Absent : alert, oriented X3, agitation, combativeness - Skin Skin exam: Present: warm, dry. Absent: Cyanosis, diaphoresis Result/EKG - Labs CBC & BMP: 08/24/16 05:08 08/24/16 05:08 Lab Results: I have reviewed the past 24 hour labs Labs: Laboratory Results - last 24 hr 08/24/16 08/24/16 05:08 05:08 WBC 5.8 RBC 4.43 Hgb 13.3 L Hct 40.2 L MCV 90.7 MCH 30 MCHC 33.1 RDW 13.8 Plt Count 110 L MPV 11.6 Neut % (Auto) 62.8 Lymph % (Auto) 21.9 [place] % (Auto) 12.9 H Eos % (Auto) 1.9 Baso % (Auto) 0.2 Neut # (Auto) 3.6 Lymph # (Auto) 1.3 L [place] # (Auto) 0.8 Eos # (Auto) 0.1 Baso # (Auto) 0.0 Immature Gran % 0.3 Nucleated RBC % 0.0 Immature Gran # 0.02 Nucleated RBCs # 0.00 Sodium 144 Potassium 3.9 Chloride 112 H Carbon Dioxide 24 Anion Gap 11.9 BUN 29 H Creatinine 1.30 GFR Calculation 57 BUN/Creatinine Ratio 22.00 H Glucose 110 H Calculated Osmolality 292.8 Calcium 8.3 L Magnesium 2.0 - Diagnostic Findings Procedure: Chest x-ray: image reviewed by me, report reviewed by me (08/24/16: Cardiomegaly a mild density at left lung base most consistent with atelectasis, but pneumonia cannot be excluded) - EKG EKG results: interpreted by me, no acute changes (Atrial flutter 3:1 conduction , atrial pacing) Quality Measures - VTE Contraindication to Pharmacological VTE Prophylaxis: Already on Theraputic Agent , No Prophylaxis Needed IAnkush Dale, MD, personally performed the services described in this documentation, ascribed by Chhaya Blanco RN in my presence, and it is both accurate and complete .
[2016-08-24] MEDS: QUEtiapine 25 MG TABLET PO SCH (21:46)
[2016-08-25 05:48] LABS: Basophils % 0.6 % (0.0-0.8); Eosinophils # 0.1 10*3/uL (0.0-0.87); Eosinophils % 2.4 % (0.00-10.9); Hematocrit 40.5 VOL% (42.0-52.0); Hemoglobin 13.3 GM/DL (14.0-18.0); Immature Granulocytes % 0.4 %; Immature Granulocytes Absolute 0.02 #; Lymphocytes # 1.4 10*3/uL (1.4-4.0); Lymphocytes % 25.8 % (21.2-54.2); Mean Corpuscular HGB Conc 32.8 GM/DL (32-36); Mean Corpuscular Hemoglobin 30 PG (27-34); Mean Corpuscular Volume 90.8 FL (87-102); Mean Platelet Volume 12.2 FL (9.6-12.0); Monocytes # 0.7 10*3/uL (0.11-0.8); Monocytes % 12.2 % (1.7-12.7); Neutrophils # 3.2 10*3/uL (1.4-7.4); Neutrophils % 58.6 % (38.7-73.9); Platelet Count 118 T/CUMM (130-400); Red Blood Count 4.46 MC/CUMM (3.8-5.5); Red Cell Distribution Width 13.8 % (9.3-17.3); White Blood Count 5.4 T/CUMM (4-12)
[2016-08-25] MEDS: LEVOTHYROXINE 25 MCG TABLET PO SCH (06:08)
[2016-08-25 06:25] LABS: Calcium 8.4 MG/DL (8.5-10.1); Potassium 3.9 MMOL/L (3.5-5.1)
[2016-08-25] MEDS: DUTASTERIDE 0.5 MG CAPSULE PO SCH (08:36)
[2016-08-25] MEDS: amLODIPine 10 MG TABLET PO SCH (08:36)
[2016-08-25] MEDS: ASPIRIN EC 81 MG TABLET PO SCH (08:36)
[2016-08-25] MEDS: CARVEDILOL 3.125 MG TABLET PO SCH ×2 (08:36→20:26)
[2016-08-25] MEDS: TAMSULOSIN 0.4 MG CAPSULE PO SCH (08:36)
[2016-08-25] MEDS: LISINOPRIL 20 MG TABLET PO SCH (08:37)
[2016-08-25] MEDS: PANTOPRAZOLE 40 MG TABLET PO SCH (08:37)
[2016-08-25] MEDS: ROSUVASTATIN 10 MG TABLET PO SCH (08:37)
--- NOTE | 2016-08-25 11:36 | Hospitalist Progress Note ---
Hospitalist: Subjective Interval history: Patient is awake alert and oriented to person. He ate breakfast well this morning. Denies any pain. He slept well overnight. No fever. No worsening and swelling around the pacemaker but obvious ecchymoses is now noted. Exam - Constitutional Vitals: Period Temp Pulse Resp BP Sys/Stubbs Pulse Ox Last 24 Hr 96.9 F-98 F 60-66 16-20 106-178/56-81 96-99 Exam: General : Awake and alert sitting in the hospital bed comfortable in no acute distress. Patient is oriented to person CV: Regular rate and rhythm diminished heart tones no rubs or gallops appreciated. Edema, fluctuant around pacemaker site with ecchymoses laterally. No leakage, increased warmth. Appropriately tender to palpation LUNGS: Clear to auscultation bilaterally anteriorly diminished at the bases nonlabored breathing noted Abdomen: Soft, nontender, nondistended, positive bowel sounds. No organomegaly or masses appreciated Extremities: Warm and well-perfused. No clubbing cyanosis or edema. Left arm is in a sling Neuro: Moves all extremities to tactile stimulation Results - Labs CBC & BMP: 08/25/16 04:38 08/25/16 04:38 - Impressions (1) Atrial flutter with Sick sinus syndrome/ Second degree AVB Mobitz type 2 Status: Chronic Current Visit: Yes - S/P pacemaker 08/20. management per cardiology. Cont xarelto per cardiology recs (2) Acute encephalopathy possibly due to metabolic vs. toxic vs. other causes. He has the pacemaker now. Neuro does not feel it is related to neuroischemic event Status: Acute Assessment and plan: Multifactorial, but no evidence of stroke per Neurology. Continue low-dose Seroquel QHS. CT-A of head and neck showed mild atherosclerotic disease and a right sinusitis which was not described as acute. He has no fever and WBC normal. Current Visit: Yes (3) hematoma around pacemaker site with thrombocytopenia-improving Status: Acute Assessment and plan: Holding Xarelto. To be restarted by cardiology. Follow H&H. Current Visit: Yes (4) Hypertension Status: Acute Assessment and plan: BP being controlled on Norvasc, Coreg and lisinopril. Will continue for now. Current Visit: Yes (5) CAD - Cont medical management. Cards following (6) Newly diagnosed hypothyroidism. - TSH was high. Free T4 was normal. total T3 low at 71. Continue Synthroid. Recheck TSH and free T4 in 4-6 weeks (7) Acute renal failure on suspected CKD stage 3 - creatinine normal now. (8) Hypomagnesemia - replaced Awaiting rehab Discussed with nurse and son. Cont telemetry. DVT prophylaxis-SCDs/ Xarelto on hold at this time Awaiting PT/OT/ST eval and pt likely needs short term rehab. DC planning. I will be away several days. 1 of my associates will follow in my absence. Quality Measures - VTE Contraindication to Pharmacological VTE Prophylaxis: Already on Theraputic Agent , No Prophylaxis Needed
[2016-08-25] MEDS: QUEtiapine 25 MG TABLET PO SCH (20:26)
--- NOTE | 2016-08-25 20:51 | Cardiology Progress Note ---
Assessment and Plan (1) Atrial flutter Status: Chronic Assessment and plan: Assessment/plan/recommendation 08/21/16: Atrial flutter rate is controlled. Delirium continues. Is waxing and waning of his mental function. 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 Dr. Matute think she is not at a neuro ischemic event. Cannot get an MRI for another 6 weeks. Continue support. Ambulate. Get physical therapy involved may need [facility] rehab or swing bed or [facility]. Will restart the Eliquis tomorrow. Assessment and plan 08/22/2016: Delirium continues. CTA is negative. Blood pressure is mildly elevated. Also at least one time he had A. fib RVR. Will start on carvedilol 3.125 mg p.o. now to better control his blood pressure and CECILIA Samuel did not agree with him. We are considering giving a trial of Geodon. Hopefully his neuro status will improve. The family relates a week ago he was driving and functioning and acting normally, with virtually normal cognitive function. 08/23/2016:Assessment and plan--no chest pain shortness of breath. Still confused. Blood pressure been slightly elevated but is better now. Continue the carvedilol. Watch blood pressure. Recent CT angiogram was negative. Await resolution of the delirium. Continue support. I had a long discussion with his son regarding his overall status and the plan. We are to try Seroquel again. August 24, 2016: Plan/assessment: No angina. He has not feel his heart flutter. Rate is controlled. His confusion continues. We are trying Seroquel at low-dose to see if it helps him sleep better and may resolve the delirium. CTA of the carotids was negative. I looked it where the pacemaker was placed. There is some edema from the surgery site but I doubt there is a pocket of blood. Will hold the Xarelto and watch. The above was discussed with the patient and his family. 7: Assessment/plan/recommendation: Atrial flutter rate is controlled. Holding Xarelto because of the edema around pocket of the surgical site. No overt bleeding or hematoma. Delirium/confusion continues. Seroquel is being tried. He is sleeping more which may help the confusion. I discussed the situation with his son, Lamin Current Visit: Yes (2) Status post placement of cardiac pacemaker Status: Chronic Current Visit: Yes (3) Encephalopathy acute Status: Acute Current Visit: Yes (4) Second degree AV block, Mobitz type II Status: Acute Current Visit: Yes (5) Sick sinus syndrome due to SA node dysfunction Status: Acute Current Visit: Yes (6) History of CVA (cerebrovascular accident) Status: Chronic Current Visit: Yes (7) History of coronary artery stent placement Status: Chronic Current Visit: Yes (8) Hypertension Status: Chronic Current Visit: Yes Cardiology - PN: Subj Interval history: No chest pain or shortness of breath. Sleeping much. Exam (Progress Note) - Constitutional Vitals: Period Temp Pulse Resp BP Sys/Stubbs Pulse Ox Last 24 Hr 97.2 F-98.7 F 60-65 16-20 114-150/61-77 96-99 Exam: General appearance: normal weight, no acute distress - Head Head exam: Absent: abrasion, hematoma - Eye Eye exam: Absent: periorbital swelling, laceration to eyelids - Respiratory Respiratory exam: Present: clear to auscultation bilaterally. Absent: accessory muscle use, chest wall tenderness, rales, stridor, rhonchi, wheeze - Cardiovascular Cardiovascular exam: Present: regular rate and rhythm, systolic murmur. Absent : Bradycardia, tachycardia, irregular rhythm, murmur - GI/Abdominal GI/Abdominal exam: Present: normal bowel sounds, soft. Absent: distended, firm , tender to - Extremities Exam Extremities exam: Present: other (Left arm in sling). Absent: edema. Other: ( Left chest wall pacemaker site -site noted to be edematous today with mild ecchymotic bruising) (left upper extremity pulses are present and palpable.) - Neurological Exam Neurological exam: Present: Currently calm and is resting comfortably. Absent : alert, oriented X3, agitation, combativeness - Skin Skin exam: Present: warm, dry. Absent: Cyanosis, diaphoresis Alert but not oriented 3 Result/EKG - Labs CBC & BMP: 08/25/16 04:38 08/25/16 04:38 Lab Results: I have reviewed the past 24 hour labs Labs: Laboratory Results - last 24 hr 08/25/16 08/25/16 04:38 04:38 WBC 5.4 RBC 4.46 Hgb 13.3 L Hct 40.5 L MCV 90.8 MCH 30 MCHC 32.8 RDW 13.8 Plt Count 118 L MPV 12.2 H Neut % (Auto) 58.6 Lymph % (Auto) 25.8 [place] % (Auto) 12.2 Eos % (Auto) 2.4 Baso % (Auto) 0.6 Neut # (Auto) 3.2 Lymph # (Auto) 1.4 [place] # (Auto) 0.7 Eos # (Auto) 0.1 Baso # (Auto) 0.0 Immature Gran % 0.4 Nucleated RBC % 0.0 Immature Gran # 0.02 Nucleated RBCs # 0.00 Sodium 143 Potassium 3.9 Chloride 111 H Carbon Dioxide 23 Anion Gap 12.9 BUN 33 H Creatinine 1.20 GFR Calculation 63 BUN/Creatinine Ratio 27.00 H Glucose 104 Calculated Osmolality 291.0 Calcium 8.4 L Magnesium 2.0 Quality Measures - VTE Contraindication to Pharmacological VTE Prophylaxis: Already on Theraputic Agent , No Prophylaxis Needed
[2016-08-26 05:24] LABS: Basophils % 0.4 % (0.0-0.8); Eosinophils # 0.1 10*3/uL (0.0-0.87); Eosinophils % 2.8 % (0.00-10.9); Hematocrit 39.2 VOL% (42.0-52.0); Hemoglobin 12.6 GM/DL (14.0-18.0); Immature Granulocytes % 1.5 %; Immature Granulocytes Absolute 0.07 #; Lymphocytes # 1.4 10*3/uL (1.4-4.0); Lymphocytes % 29.4 % (21.2-54.2); Mean Corpuscular HGB Conc 32.1 GM/DL (32-36); Mean Corpuscular Hemoglobin 31 PG (27-34); Mean Corpuscular Volume 95.1 FL (87-102); Mean Platelet Volume 11.8 FL (9.6-12.0); Monocytes # 0.5 10*3/uL (0.11-0.8); Monocytes % 10.6 % (1.7-12.7); Neutrophils # 2.6 10*3/uL (1.4-7.4); Neutrophils % 55.3 % (38.7-73.9); Platelet Count 101 T/CUMM (130-400); Red Blood Count 4.12 MC/CUMM (3.8-5.5); Red Cell Distribution Width 13.9 % (9.3-17.3); White Blood Count 4.7 T/CUMM (4-12)
[2016-08-26 05:43] LABS: Calcium 7.8 MG/DL (8.5-10.1); Magnesium 1.7 MG/DL (1.8-2.4); Osmolality,Calculated 295.7 MOS/KG (273-304)
[2016-08-26] MEDS: TAMSULOSIN 0.4 MG CAPSULE PO SCH (08:11)
[2016-08-26] MEDS: ROSUVASTATIN 10 MG TABLET PO SCH (08:11)
[2016-08-26] MEDS: PANTOPRAZOLE 40 MG TABLET PO SCH (08:11)
[2016-08-26] MEDS: CARVEDILOL 3.125 MG TABLET PO SCH ×2 (08:12→21:21)
[2016-08-26] MEDS: LEVOTHYROXINE 25 MCG TABLET PO SCH (08:12)
[2016-08-26] MEDS: LISINOPRIL 20 MG TABLET PO SCH (08:12)
[2016-08-26] MEDS: amLODIPine 10 MG TABLET PO SCH (08:12)
[2016-08-26] MEDS: DUTASTERIDE 0.5 MG CAPSULE PO SCH (08:12)
[2016-08-26] MEDS: ASPIRIN EC 81 MG TABLET PO SCH (08:12)
--- NOTE | 2016-08-26 08:34 | Hospitalist Progress Note ---
Assessment and Plan - Time spent with patient Time spent with patient: Less than 30 minutes (1) Status post placement of cardiac pacemaker Status: Chronic Current Visit: Yes (2) Atrial flutter Status: Chronic Assessment and plan: Patient had chronic atrial flutter and rate is currently controlled. Patient is being managed by cardiology. Long-term anticoagulation will be reinitiated per their direction. Current Visit: Yes (3) Second degree AV block, Mobitz type II Status: Acute Assessment and plan: Patient underwent pacemaker placement on 08/20/16. There has been some development of edema/hematoma around pacer site and Xarelto has been withheld. This is to be reinitiated per cardiology direction. Current Visit: Yes (4) Hypothyroidism Status: Acute Assessment and plan: Patient has been started on Synthroid during this admission and will require follow-up thyroid function studies in 4-6 weeks. Current Visit: Yes (5) Chronic kidney disease Status: Chronic Current Visit: Yes Qualifiers: Chronic kidney disease stage: stage 3 (moderate) Qualified Code(s): N18.3 - Chronic kidney disease, stage 3 (moderate) (6) Hypertension Status: Chronic Assessment and plan: Blood pressures been well controlled. Continue current medical regimen. Current Visit: Yes (7) Altered mental status, unspecified Status: Acute Assessment and plan: Patient has altered mental status. Discussed with the sounds like he has some underlying dementia with increasing confusion which typically is occurring at night. Long discussion with his son. Continuing to treat underlying condition and optimize medical regimen. Current Visit: Yes (8) Disposition Status: Acute Assessment and plan: Awaiting approval for transfer to [facility]. Current Visit: Yes Hospitalist: Subjective Interval history: Patient has been evaluated and chart has been reviewed. Patient is awake and alert but confused, sitting up in bed and eating breakfast without complaints. Son is in the room and has had a long discussion with him. Exam - Constitutional Vitals: Period Temp Pulse Resp BP Sys/Stubbs Pulse Ox Last 24 Hr 97.2 F-98.8 F 54-67 16-20 106-144/59-73 96-99 General appearance: no acute distress - Head Head exam: Present: normocephalic, atraumatic - Eye Eye exam: Present: EOMI Pupils: Present: BLAKE - ENT ENT exam: Present: normal oropharynx - Neck Neck exam: Absent: lymphadenopathy, meningismus, tenderness, thyromegaly - Respiratory Respiratory exam: Present: clear to auscultation bilaterally. Absent: rales, rhonchi, wheezes - Cardiovascular Cardiovascular exam: Present: regular rate and rhythm, systolic murmur. Absent : tachycardia - GI/Abdominal GI/Abdominal exam: Present: normal bowel sounds, soft. Absent: mass, tenderness , rebound - Extremities Exam Extremities exam: Absent: calf tenderness, edema - Back Exam Back exam: Present: normal inspection - Neurological Exam Neurological exam: Present: alert, other (Oriented to person) - Skin Skin exam: Present: warm, dry, other (Pacer site left anterior chest wall with mild overlying edema, left arm in sling) Results - Labs CBC & BMP: 08/26/16 04:28 08/26/16 04:28 Lab Results: I have reviewed the past 24 hour labs Quality Measures - VTE Contraindication to Pharmacological VTE Prophylaxis: Already on Theraputic Agent , No Prophylaxis Needed
--- NOTE | 2016-08-26 10:38 | Cardiology Progress Note ---
Assessment and Plan (1) Atrial flutter Status: Chronic Assessment and plan: Assessment/plan/recommendation 08/21/16: Atrial flutter rate is controlled. Delirium continues. Is waxing and waning of his mental function. 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 Dr. Matute think she is not at a neuro ischemic event. Cannot get an MRI for another 6 weeks. Continue support. Ambulate. Get physical therapy involved may need [facility] rehab or swing bed or [facility]. Will restart the Eliquis tomorrow. Assessment and plan 08/22/2016: Delirium continues. CTA is negative. Blood pressure is mildly elevated. Also at least one time he had A. fib RVR. Will start on carvedilol 3.125 mg p.o. now to better control his blood pressure and CECILIA Samuel did not agree with him. We are considering giving a trial of Geodon. Hopefully his neuro status will improve. The family relates a week ago he was driving and functioning and acting normally, with virtually normal cognitive function. 08/23/2016:Assessment and plan--no chest pain shortness of breath. Still confused. Blood pressure been slightly elevated but is better now. Continue the carvedilol. Watch blood pressure. Recent CT angiogram was negative. Await resolution of the delirium. Continue support. I had a long discussion with his son regarding his overall status and the plan. We are to try Seroquel again. August 24, 2016: Plan/assessment: No angina. He has not feel his heart flutter. Rate is controlled. His confusion continues. We are trying Seroquel at low-dose to see if it helps him sleep better and may resolve the delirium. CTA of the carotids was negative. I looked it where the pacemaker was placed. There is some edema from the surgery site but I doubt there is a pocket of blood. Will hold the Xarelto and watch. The above was discussed with the patient and his family. 7: Assessment/plan/recommendation: Atrial flutter rate is controlled. Holding Xarelto because of the edema around pocket of the surgical site. No overt bleeding or hematoma. Delirium/confusion continues. Seroquel is being tried. He is sleeping more which may help the confusion. I discussed the situation with his son, Lamin 08/26/16: Assessment/plan/recommendation: Rhythm is stable. The main problem holding him back is his dementia/delirium/confusion. I will consult secondary social studies teacher about possibly getting into [facility] unit, if they think that could help him. The pacemaker site is not having any swelling. I will restart the Xarelto this morning. Current Visit: Yes (2) Status post placement of cardiac pacemaker Status: Chronic Current Visit: Yes (3) Encephalopathy acute Status: Acute Current Visit: Yes (4) Second degree AV block, Mobitz type II Status: Acute Current Visit: Yes (5) Sick sinus syndrome due to SA node dysfunction Status: Acute Current Visit: Yes (6) History of CVA (cerebrovascular accident) Status: Chronic Current Visit: Yes (7) History of coronary artery stent placement Status: Chronic Current Visit: Yes (8) Hypertension Status: Chronic Current Visit: Yes (9) Confusion Status: Acute Current Visit: Yes (10) Altered mental status, unspecified Status: Acute Current Visit: Yes (11) Delirium Status: Acute Current Visit: Yes Cardiology - PN: Subj Interval history: No chest pain or shortness of breath or dizziness. He is able to get to the bathroom and back okay. Continues to have confusion/delirium. Exam (Progress Note) - Constitutional Vitals: Period Temp Pulse Resp BP Sys/Stubbs Pulse Ox Last 24 Hr 97.2 F-98.8 F 54-67 16-20 106-144/59-73 96-99 Exam: HEENT: Pupils equal, reactive to light and accommodation Neck: NoJVD or bruit Lungs clear to auscultation Heart: Regular rhythm rate with normal S1 and S2. Apical S4, 1/6 systolic ejection murmur along the right upper sternal border. Abdomen: No hepatosplenomegaly Spine/extremities: No clubbing, cyanosis, or edema Neuro: Confused. Has word salad. Psych: No depression or anxiety Result/EKG - Labs CBC & BMP: 08/26/16 04:28 08/26/16 04:28 Lab Results: I have reviewed the past 24 hour labs Labs: Laboratory Results - last 24 hr 08/26/16 08/26/16 04:28 04:28 WBC 4.7 RBC 4.12 Hgb 12.6 L Hct 39.2 L MCV 95.1 MCH 31 MCHC 32.1 RDW 13.9 Plt Count 101 L MPV 11.8 Neut % (Auto) 55.3 Lymph % (Auto) 29.4 [place] % (Auto) 10.6 Eos % (Auto) 2.8 Baso % (Auto) 0.4 Neut # (Auto) 2.6 Lymph # (Auto) 1.4 [place] # (Auto) 0.5 Eos # (Auto) 0.1 Baso # (Auto) 0.0 Immature Gran % 1.5 Nucleated RBC % 0.0 Immature Gran # 0.07 Nucleated RBCs # 0.00 Sodium 145 Potassium 4.0 Chloride 113 H Carbon Dioxide 23 Anion Gap 13.0 BUN 35 H Creatinine 1.40 H GFR Calculation 52 BUN/Creatinine Ratio 25.00 H Glucose 106 Calculated Osmolality 295.7 Calcium 7.8 L Magnesium 1.7 L Quality Measures - VTE Contraindication to Pharmacological VTE Prophylaxis: Already on Theraputic Agent , No Prophylaxis Needed Specialty Discharge - Follow Up or Referrals Follow up with: Mark Lechuga MD [Physician] -
[2016-08-26] MEDS: MAGNESIUM SULF RIDER 2 GM in PREMIX 1 EACH IV PRN (11:30)
[2016-08-26] MEDS: QUEtiapine 25 MG TABLET PO SCH (21:21)
[2016-08-26] MEDS: MAGNESIUM CHLORIDE 64 MG TABLET PO SCH (21:21)
[2016-08-27 05:38] LABS: Basophils % 0.5 % (0.0-0.8); Eosinophils # 0.1 10*3/uL (0.0-0.87); Eosinophils % 2.9 % (0.00-10.9); Hematocrit 37.4 VOL% (42.0-52.0); Hemoglobin 12.4 GM/DL (14.0-18.0); Immature Granulocytes % 0.2 %; Immature Granulocytes Absolute 0.01 #; Lymphocytes # 1.3 10*3/uL (1.4-4.0); Lymphocytes % 30.2 % (21.2-54.2); Mean Corpuscular HGB Conc 33.2 GM/DL (32-36); Mean Corpuscular Hemoglobin 31 PG (27-34); Mean Corpuscular Volume 92.1 FL (87-102); Mean Platelet Volume 11.7 FL (9.6-12.0); Monocytes # 0.5 10*3/uL (0.11-0.8); Monocytes % 11.1 % (1.7-12.7); Neutrophils # 2.4 10*3/uL (1.4-7.4); Neutrophils % 55.1 % (38.7-73.9); Platelet Count 112 T/CUMM (130-400); Red Blood Count 4.06 MC/CUMM (3.8-5.5); Red Cell Distribution Width 13.3 % (9.3-17.3); White Blood Count 4.4 T/CUMM (4-12)
[2016-08-27 06:02] LABS: Calcium 7.8 MG/DL (8.5-10.1); Potassium 4.1 MMOL/L (3.5-5.1)
[2016-08-27] MEDS: LEVOTHYROXINE 25 MCG TABLET PO SCH ×2 (06:38→09:31)
[2016-08-27] MEDS: CARVEDILOL 3.125 MG TABLET PO SCH ×2 (09:31→21:55)
[2016-08-27] MEDS: MAGNESIUM CHLORIDE 64 MG TABLET PO SCH ×2 (09:31→21:55)
[2016-08-27] MEDS: ROSUVASTATIN 10 MG TABLET PO SCH (09:31)
[2016-08-27] MEDS: ASPIRIN EC 81 MG TABLET PO SCH (09:31)
[2016-08-27] MEDS: amLODIPine 10 MG TABLET PO SCH (09:31)
[2016-08-27] MEDS: DUTASTERIDE 0.5 MG CAPSULE PO SCH (09:31)
[2016-08-27] MEDS: PANTOPRAZOLE 40 MG TABLET PO SCH ×2 (09:31→09:48)
[2016-08-27] MEDS: RIVAROXABAN 15 MG TABLET PO SCH (09:31)
[2016-08-27] MEDS: TAMSULOSIN 0.4 MG CAPSULE PO SCH (09:31)
[2016-08-27] MEDS: LISINOPRIL 20 MG TABLET PO SCH (09:31)
--- NOTE | 2016-08-27 11:39 | Cardiology Progress Note ---
Francis Canela Vanessa, RN, am scribing for, and in the presence of, Josep Larios MD 11:38. Assessment and Plan - Time spent with patient Time spent with patient: Greater than 30 minutes (1) Atrial flutter Status: Chronic Assessment and plan: Pulse rate has been well controlled. Continue beta-maldonado. Anticoagulation was resumed on 08/26. Echocardiogram on 08/18 with LV ejection fraction 60% and mild pulmonary hypertension with PA pressure 50 mmHg. From a cardiac standpoint , he is well compensated and could be discharged home. We are looking at options such as swing bed versus [facility]. Current Visit: Yes (2) Status post placement of cardiac pacemaker Status: Chronic Assessment and plan: Status post implantation of single-chamber pacemaker. Device has been interrogated and was found to be functioning appropriately. No evidence of problem or complication. Current Visit: Yes (3) Encephalopathy acute Status: Acute Assessment and plan: This is most likely related to known dementia with increasing confusion. Patient is now receiving Seroquel each night. Abdirahman TRUJILLO. Consulting case management for [facility] evaluation. Current Visit: Yes (4) Second degree AV block, Mobitz type II Status: Acute Assessment and plan: This has resolved with pacemaker implant. Current Visit: Yes (5) Sick sinus syndrome due to SA node dysfunction Status: Acute Assessment and plan: This has resolved with pacemaker implant. Current Visit: Yes (6) History of CVA (cerebrovascular accident) Status: Chronic Current Visit: Yes (7) History of coronary artery stent placement Status: Chronic Assessment and plan: Status post PCI of LAD with placement of coronary stent 2 in 2005. Clinically , this appears to be stable without ischemic findings. Current Visit: Yes (8) Hypertension Status: Chronic Assessment and plan: Blood pressure is suboptimally controlled. Adjust medication regimen. Current Visit: Yes Cardiology - PN: Subj Interval history: PRIMARY STRAIGHTENING ROLL OPERATOR: DR. LONA LECHUGA Mr. Betancourt is an 85-year-old male with past medical history of hypertension, CAD with previous coronary stenting, chronic atrial flutter after a CVA in 2013. He is usually fairly independent and drives to see his in a nursing facility on a regular basis. He was brought to the emergency room on 08/18/16 by his son after he was found confused, disoriented to time and place, and was agitated. While being worked up in the emergency room, he did have altered mental status change with pronounced confusion, and at the same time was noted to have ventricular rate in the 40s with AV block and long pauses up to 6 seconds. Patient was diagnosed with Mobitz type II second-degree AV block, and on 08/20/16 he had a single-chamber pacemaker implanted per Dr. Zeb Clinton. Pacemaker has been interrogated since implantation and found to be functioning appropriately. Xarelto was restarted on 08/22, held on 08/24 after development of some edema with ecchymotic bruising had pacer site, and it was resumed on .Aatrial flutter has been rate controlled, but he has had continued delirium and periods of extreme confusion. He has been evaluated by neurology, and Dr. Matute felt it to be related to an underlying dementia with increased in mental dysfunction/confusion and not an acute ischemic event. Unfortunately, he is unable to get an MRI for another 6 weeks due to recent pacemaker implant. CT of the head showed no acute process. He is now being managed by hospital medicine for acute encephalopathy. Patient is now being evaluated for [facility] bed placement. Cardiology is following for management of atrial flutter and post pacemaker implantation for second-degree AV block, sick sinus syndrome , SA node dysfunction. Patient seen and examined. He is currently sitting up in bedside chair, sleeping comfortably without distress noted. Son present at bedside, and he reports that patient was awake most of the night and was confused with periods of agitation. Patient has been afebrile, some transient hypertension with SBP 160s, but vitals have been stable overall. Atrial flutter with well controlled pulse rate per tele monitoring. Intermittent ventricular pacing also. Labs reviewed. WBC 4,400. H/H 12.4 & 37.4. Potassium is 4.1. Magnesium 2.0 (1.7 yesterday). Creatinine 1.2 with GFR 63. Exam (Progress Note) - Constitutional Vitals: Period Temp Pulse Resp BP Sys/Stubbs Pulse Ox Last 24 Hr 97.3 F-98.5 F 59-63 16-18 100-165/55-85 96-98 Exam: General appearance: normal weight, no acute distress - Head Head exam: Absent: abrasion, hematoma - Eye Eye exam: Absent: periorbital swelling, laceration to eyelids - Respiratory Respiratory exam: Present: clear to auscultation bilaterally. Absent: accessory muscle use, chest wall tenderness, rales, stridor, rhonchi, wheeze - Cardiovascular Cardiovascular exam: Present: regular rate and rhythm, systolic murmur. Absent : Bradycardia, tachycardia, irregular rhythm, murmur - GI/Abdominal GI/Abdominal exam: Present: normal bowel sounds, soft. Absent: distended, firm , tender - Extremities Exam Extremities exam: Present: other (Left arm in sling). Absent: edema. Other: ( Left chest wall pacemaker site with no significant swelling and mild amount of ecchymotic bruising) (left upper extremity pulses are present and palpable, and extremity is immobilized.) - Neurological Exam Neurological exam: Present: Currently calm and is resting comfortably. Absent : alert, oriented X3, agitation, combativeness - Skin Skin exam: Present: warm, dry. Absent: Cyanosis, diaphoresis Result/EKG - Labs CBC & BMP: 08/27/16 05:17 08/27/16 05:17 Lab Results: I have reviewed the past 24 hour labs Labs: Laboratory Results - last 24 hr 08/27/16 08/27/16 05:17 05:17 WBC 4.4 RBC 4.06 Hgb 12.4 L Hct 37.4 L MCV 92.1 MCH 31 MCHC 33.2 RDW 13.3 Plt Count 112 L MPV 11.7 Neut % (Auto) 55.1 Lymph % (Auto) 30.2 [place] % (Auto) 11.1 Eos % (Auto) 2.9 Baso % (Auto) 0.5 Neut # (Auto) 2.4 Lymph # (Auto) 1.3 L [place] # (Auto) 0.5 Eos # (Auto) 0.1 Baso # (Auto) 0.0 Immature Gran % 0.2 Nucleated RBC % 0.0 Immature Gran # 0.01 Nucleated RBCs # 0.00 Sodium 143 Potassium 4.1 Chloride 111 H Carbon Dioxide 24 Anion Gap 12.1 BUN 28 H Creatinine 1.20 GFR Calculation 63 BUN/Creatinine Ratio 23.00 H Glucose 82 Calculated Osmolality 289.0 Calcium 7.8 L Magnesium 2.0 - EKG EKG results: interpreted by me, no acute changes (atrial flutter; intermittent ventricular pacing) Quality Measures - VTE Contraindication to Pharmacological VTE Prophylaxis: Already on Theraputic Agent , No Prophylaxis Needed Specialty Discharge - Follow Up or Referrals Follow up with: Lona Lechuga MD [Physician] - I, Josep Larios MD, personally performed the services described in this documentation, ascribed by Chhaya Blanco RN in my presence, and it is both accurate and complete .
--- NOTE | 2016-08-27 14:07 | Hospitalist Progress Note ---
Assessment and Plan (1) Status post placement of cardiac pacemaker Status: Chronic Assessment and plan: The patient had atrial arrhythmia required pacemaker implantation. We are working on placement for the patient at facility which will allow him to do rehabilitation. The patient will benefit from anticoagulation at the time of discharge. Current Visit: Yes (2) History of CVA (cerebrovascular accident) Status: Chronic Current Visit: Yes (3) Chronic kidney disease Status: Chronic Current Visit: Yes Qualifiers: Chronic kidney disease stage: stage 3 (moderate) Qualified Code(s): N18.3 - Chronic kidney disease, stage 3 (moderate) (4) Confusion Status: Acute Current Visit: Yes Hospitalist: Subjective Interval history: The patient is admitted to the hospital with atrial arrhythmia and required pacemaker implantation. The patient had been on Xarelto and had lots of bruising around the pacemaker site. Xarelto was held. The patient is gaining strength and we are making discharge plans. I coordinated with the case management social worker who has pending consultations with swing bed at [facility] as well as [facility] rehab. The patient has no new complaints today. The patient does not have shortness of breath or angina. Exam - Constitutional Vitals: Period Temp Pulse Resp BP Sys/Stubbs Pulse Ox Last 24 Hr 97.3 F-98.5 F 59-63 16-18 100-160/55-85 96-98 Exam: Constitutional System: Mild distress. Mild to moderate anxiousness. mild tremulousness. Head: Normocephalic, atraumatic. Ears, Nose and Throat System: No evidence of Otitis or Mastoiditis. No epistaxis or discharge Eyes System: Pupils equal, round, and reactive. Extraocular muscles intact. Neck: Supple, without adenopathy, No jugular venous distention. No thyromegaly , neck mass, or prior surgery apparent. Respiratory System: Chest clear to auscultation. Cardiovascular System: Heart with irregular rate and rhythm. No murmur. GI System: Abdomen soft, nontender. Normo active bowel sounds present. Musculoskeletal System: limbs with no pedal edema. Full distal pulses. Neurological System: No discernable sensory deficit. No aphasia Psychiatric System: Conversation is disoriented and consistent with dementia affect Results - Labs CBC & BMP: 08/27/16 05:17 08/27/16 05:17 Lab Results: I have reviewed the past 24 hour labs Quality Measures - VTE Contraindication to Pharmacological VTE Prophylaxis: Already on Theraputic Agent , No Prophylaxis Needed Specialty Discharge - Follow Up or Referrals Follow up with: Mark Lechuga MD [Physician] -
[2016-08-27] MEDS: QUEtiapine 25 MG TABLET PO SCH (21:55)
[2016-08-27] MEDS: ZIPRASIDONE 20 MG/1 ML VIAL IM PRN (23:50)
[2016-08-28 06:41] LABS: Calcium 8.3 MG/DL (8.5-10.1); Magnesium 2.1 MG/DL (1.8-2.4); Osmolality,Calculated 290.1 MOS/KG (273-304); Potassium 4.8 MMOL/L (3.5-5.1)
[2016-08-28] MEDS: LEVOTHYROXINE 25 MCG TABLET PO SCH (06:54)
[2016-08-28 07:57] LABS: Basophils % 0.4 % (0.0-0.8); Eosinophils # 0.1 10*3/uL (0.0-0.87); Eosinophils % 2.3 % (0.00-10.9); Hematocrit 40.8 VOL% (42.0-52.0); Hemoglobin 13.5 GM/DL (14.0-18.0); Immature Granulocytes % 0.4 %; Immature Granulocytes Absolute 0.02 #; Lymphocytes # 1.1 10*3/uL (1.4-4.0); Mean Corpuscular HGB Conc 33.1 GM/DL (32-36); Mean Corpuscular Hemoglobin 30 PG (27-34); Mean Corpuscular Volume 91.7 FL (87-102); Mean Platelet Volume 11.4 FL (9.6-12.0); Monocytes # 0.7 10*3/uL (0.11-0.8); Monocytes % 12.4 % (1.7-12.7); Neutrophils # 3.3 10*3/uL (1.4-7.4); Neutrophils % 63.5 % (38.7-73.9); Platelet Count 125 T/CUMM (130-400); Red Blood Count 4.45 MC/CUMM (3.8-5.5); Red Cell Distribution Width 13.7 % (9.3-17.3); White Blood Count 5.2 T/CUMM (4-12)
[2016-08-28] MEDS: amLODIPine 10 MG TABLET PO SCH (08:59)
[2016-08-28] MEDS: LISINOPRIL 20 MG TABLET PO SCH (08:59)
[2016-08-28] MEDS: CARVEDILOL 3.125 MG TABLET PO SCH (09:00)
[2016-08-28] MEDS: RIVAROXABAN 15 MG TABLET PO SCH (09:00)
[2016-08-28] MEDS: TAMSULOSIN 0.4 MG CAPSULE PO SCH (09:07)
[2016-08-28] MEDS: PANTOPRAZOLE 40 MG TABLET PO SCH (09:07)
[2016-08-28] MEDS: DUTASTERIDE 0.5 MG CAPSULE PO SCH (09:07)
[2016-08-28] MEDS: ASPIRIN EC 81 MG TABLET PO SCH (09:09)
[2016-08-28] MEDS: ROSUVASTATIN 10 MG TABLET PO SCH (09:09)
[2016-08-28] MEDS: MAGNESIUM CHLORIDE 64 MG TABLET PO SCH (09:09)
--- NOTE | 2016-08-28 10:45 | Discharge Summary ---
Hospital Course - Hospital Course Hospital Course: Mr. Betancourt was admitted to the hospital with confusion and weakness. The patient had sinus bradycardia and pauses at the time of admission. A pacemaker was implanted and the cardiac rhythm has improved. The patient has underlying mild to moderate dementia with delirium especially at night. The patient was started on Seroquel. The patient still having difficulty with confusion at night and sleeping during the day. The patient has been accepted at geriatric psychiatry unit for further titration and adjustment of dementia and delirium medications. I coordinated care with the patient's sons and made consensus concerning discharge plan. If the patient is improved at geriatric psychiatry the patient might return home for independent living. The patient's spouse has had a stroke about 11 months ago and is at [facility] in [place]. If the patient does not improve to independent living he likely will join his at [facility]. On the date of discharge, chest clear heart has regular rate and rhythm and pacemaker pocket healing appropriately. [id number] discharge planning 38 minutes. - Time spent with patient Time with patient DS: Greater than 30 minutes Diagnosis - Discharge Diagnosis (1) Status post placement of cardiac pacemaker Status: Chronic (2) History of CVA (cerebrovascular accident) Status: Chronic (3) Chronic kidney disease Status: Chronic (4) Confusion Status: Acute Specialty Discharge - Follow Up or Referrals Follow up with: Mark Lechuga MD [Physician] - Discharge Plan - Discharge Data Disposition: Disch/Xfer to Psych Hos Condition at Discharge: Stable Discharge Diet: heart healthy Activity: increase activity as tolerated - Discharge Medications New QUEtiapine [SEROquel] 25 mg PO BEDTIME #0 tablet Ziprasidone Inj [Geodon Inj] 10 mg IM Q6H PRN #0 vial PRN Reason: Agitation Carvedilol [Coreg] 3.125 mg PO BID #100 tablet amLODIPine [Norvasc] 10 mg PO DAILY tablet Continue Rivaroxaban [Xarelto] 15 mg PO DAILY Pantoprazole Tab [Protonix Tab] 40 mg PO DAILY Lisinopril 20 mg PO DAILY Aspirin EC Tab 81 mg PO DAILY Rosuvastatin Calcium 5 mg PO DAILY Dutasteride/Tamsulosin HCl [Dutasteride-Tamsulosin 0.5-0.4] 1 each PO DAILY - Follow Up or Referral Follow Up: Mark Lechuga MD [Physician] - - Forms/Instructions Exam - Constitutional Vitals: Period Temp Pulse Resp BP Sys/Stubbs Pulse Ox Last 24 Hr 97 F-99.7 F 60-79 16-20 102-186/51-83 90-98 Discharge Results Procedures and tests throughout hospitalization: Pending Orders 08/18/16 14:58 Sputum Culture and Gram Stain Routine 08/24/16 14:58 UA [Urinalysis] Routine 08/24/16 15:29 Blood Culture Routine 08/29/16 04:00 BMP w/ Mg [Basic Metabolic Panel w/Mg] IN AM CBC [Comp Blood Count Auto Diff] IN AM 08/30/16 04:00 BMP w/ Mg [Basic Metabolic Panel w/Mg] IN AM CBC [Comp Blood Count Auto Diff] IN AM 08/31/16 04:00 BMP w/ Mg [Basic Metabolic Panel w/Mg] IN AM CBC [Comp Blood Count Auto Diff] IN AM 09/01/16 04:00 BMP w/ Mg [Basic Metabolic Panel w/Mg] IN AM CBC [Comp Blood Count Auto Diff] IN AM Labs on day of discharge: Labs from last 24 hours 08/28/16 08/28/16 07:51 05:17 WBC 5.2 RBC 4.45 Hgb 13.5 L Hct 40.8 L MCV 91.7 MCH 30 MCHC 33.1 RDW 13.7 Plt Count 125 L MPV 11.4 Neut % (Auto) 63.5 Lymph % (Auto) 21.0 L [place] % (Auto) 12.4 Eos % (Auto) 2.3 Baso % (Auto) 0.4 Neut # (Auto) 3.3 Lymph # (Auto) 1.1 L [place] # (Auto) 0.7 Eos # (Auto) 0.1 Baso # (Auto) 0.0 Immature Gran % 0.4 Nucleated RBC % 0.0 Immature Gran # 0.02 Nucleated RBCs # 0.00 Sodium 142 Potassium 4.8 Chloride 111 H Carbon Dioxide 22 Anion Gap 13.8 BUN 36 H Creatinine 1.30 GFR Calculation 57 BUN/Creatinine Ratio 27.00 H Glucose 104 Calculated Osmolality 290.1 Calcium 8.3 L Magnesium 2.1 Preliminary micro results at discharge 08/24/16 15:29 Blood Culture - Preliminary Blood No growth at 3 days 08/24/16 15:29 Blood Culture - Preliminary Blood Gram Positive Cocci DS: Provider Date of admission: 08/18/16 13:10 Primary care physician: . No PCP Attending physician on admission: Min Blanc MD Consults: 08/18/16 13:11 Consult to Physician [CONS] Routine Comment: Consulting Provider: Lennox Ponce Consulting Provider Notified: Yes When should Consulting Provider be notified: Now Person Notified: Dr Ponce Date Notified: 08/18/16 Time Notified: 15:25 08/18/16 14:08 Consult to Pharmacy [CONS] Routine Reason for Pharmacy Consult: Adjust Meds Renal Funct 08/19/16 07:24 Consult to Physician [CONS] Routine Comment: h/o stroke; pause/roosevelt; ms change Consulting Provider: Federico Matute 08/19/16 07:30 Consult to Physician [CONS] Routine Comment: c aflutter; >5 sec pauses Consulting Provider: Kulwinder Clinton 08/22/16 14:29 Consult to Occupational Therapy [CONS] Routine Reason for Occupational Therapy: Evaluate and Treat Consult Comment: generalized weakness with confusion, please eval for possible placement Consult to Physical Therapy [CONS] Routine Reason for Physical Therapy: Evaluate and Treat Consult Comment: generalized weakness with confusion, please eval for possible placement 08/22/16 15:24 Consult to Case Mgmt/Social Srvs [CONS] Routine Reason for Case Mgmt/Social Srvs: Discharge Planning Rehab 08/26/16 10:11 Consult to Case Mgmt/Social Srvs [CONS] Routine Reason for Case Mgmt/Social Srvs: Other Consult Comment: See if patient is a candidate for [facility] Discharging clinician: Sukh Jenkins MD
[2016-08-28 12:16] VITALS: BP 138/70
== END 2016-08-28 13:03 | DRG 242 ==
LOC: N.ED 09:39 → N.EDINP 13:10 → SUATTDRO 13:10 → N.TELEN 13:32 → N.CC 19:14 → N.TELES 08-21 14:32
PROVIDERS: ADMIT Internal Medicine; ATTEND Internal Medicine

== ENCOUNTER 2016-08-28 20:41 | Inpatient (IN) ==
[2016-08-28] MEDS ORDERED: SODIUM CHLORIDE 0.9% 500 ML IV STA (22:12)
--- NOTE | 2016-08-28 22:46 | XRay Report ---
Exam: XR chest 1V portable Indication: Shortness of breath Comparison study: 08/24/2016 Findings: Cardiac silhouette is mildly enlarged, similar to prior. Left chest pacemaker device and single wire lead are in similar positions. The heart, mediastinum and bony structures are stable from prior. Clearing of questioned left basilar opacities is noted when compared to prior. There is no focal consolidation, pneumothorax or pleural effusion identified. Impression: No acute cardiopulmonary process. No significant change from prior. PROCEDURE INTERPRETED AT [facility] DEPARTMENT OF RADIOLOGY Final Report Signed by: Camden Swenson
--- NOTE | 2016-08-28 22:58 | CT Report ---
CT head/brain wo con INDICATION: Syncope The total DLP is 1012 mGy*cm. COMPARISON: Noncontrast CT head dated 08/16/2016 Technique: Serial axial tomographic images of the brain were obtained without the use of intravenous contrast. Dose reduction: This CT exam was performed using one or more of the following dose reduction techniques: Automated exposure control, automated adjustment of the mA and/or KV according to patient size, or use of iterative reconstruction technique. Findings: Moderate generalized atrophy is noted with mild prominence of the sulci and cortical volume loss. Periventricular white matter hypodensity changes are noted bilaterally which do not demonstrate mass effect and are nonspecific but favored to represent sequela of chronic microvascular ischemia. There is no evidence of vascular territory infarct or acute intracranial hemorrhage. The weems-white matter differentiation is generally maintained. There is no hydrocephalus. The basilar cisterns are patent. The visualized paranasal sinuses, mastoid air cells and middle ear cavities are predominantly clear. The included orbits and their contents appear within normal limits. Density within the right external canal appears similar prior may represent hearing aid or foreign body. The visualized osseous structures and overlying soft tissues of the skull and face demonstrate no acute abnormality. IMPRESSION: No acute intracranial hemorrhage or infarction. Similar advanced degenerative changes and sequela of chronic microvascular ischemia. PROCEDURE INTERPRETED AT [facility] DEPARTMENT OF RADIOLOGY Final Report Signed by: Camden Swenson
[2016-08-28 23:09] LABS: Basophils % 0.3 % (0.0-0.8); Eosinophils # 0.1 10*3/uL (0.0-0.87); Eosinophils % 0.9 % (0.00-10.9); Hematocrit 40.7 VOL% (42.0-52.0); Hemoglobin 13.4 GM/DL (14.0-18.0); Immature Granulocytes % 0.3 %; Immature Granulocytes Absolute 0.02 #; Lymphocytes # 0.9 10*3/uL (1.4-4.0); Lymphocytes % 12.6 % (21.2-54.2); Mean Corpuscular HGB Conc 32.9 GM/DL (32-36); Mean Corpuscular Hemoglobin 31 PG (27-34); Mean Corpuscular Volume 92.7 FL (87-102); Mean Platelet Volume 11.6 FL (9.6-12.0); Monocytes # 0.6 10*3/uL (0.11-0.8); Monocytes % 9.2 % (1.7-12.7); Neutrophils # 5.2 10*3/uL (1.4-7.4); Neutrophils % 76.7 % (38.7-73.9); Platelet Count 127 T/CUMM (130-400); Red Blood Count 4.39 MC/CUMM (3.8-5.5); Red Cell Distribution Width 13.6 % (9.3-17.3); White Blood Count 6.8 T/CUMM (4-12)
[2016-08-28 23:39] LABS: Albumin 3.2 G/DL (3.4-5.0); Bilirubin,Total 0.7 MG/DL (0.2-1.0); Calcium 8.5 MG/DL (8.5-10.1); Magnesium 2.1 MG/DL (1.8-2.4); Osmolality,Calculated 289.3 MOS/KG (273-304); Potassium 4.6 MMOL/L (3.5-5.1); Total Protein 7.1 G/DL (6.4-8.3)
[2016-08-28 23:42] LABS: Troponin I Only 0.061 NG/ML (0.00-0.045)
[2016-08-29] LABS: INR 1.4; PT Patient Result 14.6 SECS
--- NOTE | 2016-08-29 00:05 | Emergency Department Note ---
John Canela Mantricia, am scribing for, and in the presence of, Martin Houston MD 22:22. Rosemarie Canela Charles R, MD, personally performed the services described in this documentation, ascribed by Alfredo Lopez in my presence, and it is both accurate and complete . Arrival - Arrival Chief Complaint: Syncope Stated Complaint: Syncopal episode ED Nursing Triage Note: C/C syncopal episode while having bowel movement. Pt was sent from [facility]. Pt has hx of AMS/confusion. Recent placement of pacemaker. Pt was sent to [facility] today from [facility] Mode of Arrival: Stretcher Limitations: No Limitations Source: Patient Time Seen by Provider: 08/28/16 21:16 - History of Present Illness HPI Narrative: Pt is an 85 y/o white male arriving to ED by EMS with c/o syncopal episode that onset today. Pt had this episode while having BM. Family states that prior to the syncopal episode and while on the stool, the pt began to hallucinate and start to sweet pickled fruit maker things off the floor. He then preceded to call his 's name and then the syncopal episode began. Family reports that a week ago pt was confused, hallucinating, and "out of it." He was then sent to [facility] today from [facility] and transferred here because he became combative. Pt was given meds to calm down and is currently taking Zarelto. He has a PMHx of a heart pause, AMS, and DM. On 08/20 pt had a pacemaker placed. Family reports a CVA in 2013 and that there is no new damage since then. Pt lived alone prior to this. Onset (ago): hour(s) Consistency: constant Severity: mild Severity scale (1-10): 3 Allergies/Adverse Reactions: Allergies Allergy/AdvReac Type Severity Reaction Status Date / Time lorazepam [From Ativan] AdvReac Intermediate Confusion Verified 08/28/16 20:56 Home Medications: Home Medications Medication Instructions Recorded Confirmed Type Aspirin EC Tab 81 mg PO DAILY 08/18/16 08/28/16 History Dutasteride/Tamsulosin HCl 1 each PO DAILY 08/18/16 08/28/16 History [Dutasteride-Tamsulosin 0.5-0.4] Lisinopril 20 mg PO DAILY 08/18/16 08/28/16 History Pantoprazole Tab [Protonix Tab] 40 mg PO DAILY 08/18/16 08/28/16 History Rivaroxaban [Xarelto] 15 mg PO DAILY 08/18/16 08/28/16 History Rosuvastatin Calcium 5 mg PO DAILY 08/18/16 08/28/16 History Carvedilol [Coreg] 3.125 mg PO BID #100 tablet 08/28/16 08/28/16 Rx QUEtiapine [SEROquel] 25 mg PO BEDTIME #0 tablet 08/28/16 08/28/16 Rx Ziprasidone Inj [Geodon Inj] 10 mg IM Q6H PRN #0 vial 08/28/16 08/28/16 Rx amLODIPine [Norvasc] 10 mg PO DAILY tablet 08/28/16 08/28/16 Rx Review of System - Review of System 12 point system: reviewed and no additional remarkable complaints except as stated - Review of System Constitutional: Absent: chills, diaphoresis, fever Eyes: Absent: discharge, pain, redness Head/Ears/Nose/Throat: Absent: earache, epistaxis Respiratory: Absent: cough, respiratory distress, wheezing Cardiovascular: Present: syncope. Absent: chest pain, palpitations, dyspnea on exertion Gastrointestinal: Absent: abdominal pain, nausea, vomiting, diarrhea, constipation Genitourinary male: Absent: urgency, dysuria, frequency Musculoskeletal: Absent: arm pain, back pain, leg pain, neck pain Skin: Absent: rash, lesions, change in color Neurological: Absent: headache, weakness Psychiatric: Present: auditory hallucinations Medical,Surgical,& Family Hx - Medical History Cardio: History of: Cerebrovascular Disease (2013), Hypertension, [place] (1995 OR 1996), Pacemaker (JULY 2016), Cardiovascular Problems Psychological: History of: Behavior Problems (HALLUCINATIONS;CONFUSION.) No history of: Anxiety Disorders, ADHD, Bipolar Disorder, Depression, Previous Suicide Attempt, Psychiatric/Substance Abuse Tx, Schizophrenia, Violent Behavior, Psychiatric Problems Neurology: History of: Cerebrovascular Accident (2013), Dementia, TIA HEENT: History of: Ear Problem ([place]; WEARS [place].HEARING AIDES) Genitourinary: History of: Prostate Problems (ELEVATED PSA) Gastrointestinal: History of: GERD, Gastrointestinal Bleed Musculoskeletal: History of: Amputation, Back/Neck Problems (BACK PAIN) - Surgical History Cardiac Surgeries: Sugical HX of: Cardiac Catheterization, Cardiac Surgery ( WITH STENTS 2007) Thoracic Surgeries: Patient denies;: Organ Transplant, Lobectomy Neurologic Surgeries: Patient denies: Neurologic Surgery HEENT Surgeries: Patient denies: Tonsilectomy & Adenoidectomy Abdominal Surgeries: Surgical HX of: Abdominal Surgery, Cholecystectomy, Colonoscopy, EGD Reproductive Surgeries: Patient denies;: Genitourinary Surgery Orthopedic Surgeries: Surgical HX of;: Orthopedic Surgery (KNEE SCOPE, UNSURE) - Family History Family History: Reports;: Family Heart Disease (MOTHER), Family Psychiatric Problems (UNSURE) - Social History Smoking Status: Never smoker Frequency of Alcohol Use: None Type of Drug Use: None Exam Vital Signs: Vital Signs Temperature 97 F L 08/28/16 20:42 Pulse Rate 60 08/28/16 21:05 Respiratory Rate 17 08/28/16 21:05 Blood Pressure 102/53 08/28/16 20:42 O2 Sat by Pulse Oximetry 99 08/28/16 20:42 - General General appearance: alert, in no apparent distress - Head Head exam: Present: atraumatic, normocephalic, normal inspection - Eye Eye exam: Present: normal appearance, PERRL, EOMI, other (pin point pupils) - ENT ENT exam: Present: normal exam, normal oropharynx, mucous membranes moist, TM's normal bilaterally, normal external ear exam, other - Neck Neck exam: Present: normal inspection, full ROM, trachea midline. Absent: tenderness - Chest Chest inspection: Present: symmetric chest wall rise, other (lots of bruising on left chest due to pacemaker) - Cardiovascular Cardiovascular exam: Present: normal rhythm, bradycardia, normal heart sounds - Abdominal Exam Abdominal exam: Present: soft, normal bowel sounds. Absent: distention, tenderness, guarding, rebound - Extremities Exam Extremities exam: Present: normal inspection, full ROM, normal capillary refill. Absent: tenderness, pedal edema - Back Exam Back exam: Present: normal inspection, full ROM. Absent: tenderness - Neurological Exam Neurological exam: Present: alert, oriented X3, CN II-XII intact, normal gait, reflexes normal - Psychiatric Psychiatric exam: Present: other (hallucinations) - Skin Skin exam: Present: warm, dry, normal color, other (poor skin turgor) Course - Consultations Consultation #1: Hospitalist will admit patient Time: 00:34 Results - Labs CBC & BMP: 08/28/16 22:43 08/28/16 22:43 Lab Results: I have reviewed the patients labs Labs: Laboratory Tests 08/28/16 08/28/16 22:43 22:43 Hgb 13.4 L Hct 40.7 L Plt Count 127 L Neut % (Auto) 76.7 H Lymph % (Auto) 12.6 L Lymph # (Auto) 0.9 L Chloride 110 H BUN 38 H Creatinine 1.50 H BUN/Creatinine Ratio 25.00 H AST 44 H Troponin I 0.061 H Albumin 3.2 L Globulin 3.9 H Albumin/Globulin Ratio 0.8 L - Diagnostic Findings Procedure: Chest x-ray: report reviewed by me (No acute cardiopulmonary process. No significant change from prior. ) Disposition Clinical Impression: Delirium, Confusion, Dementia, Altered mental status, unspecified, Status post placement of cardiac pacemaker, Vasovagal syncope Case discussed with: patient, patient's family Disposition: Still a Patient Condition: Stable Time of Disposition: 00:10
[2016-08-29 00:23] LABS: Apearance,Urine Slightly Hazy (Clear); Bilirubin,Urine Negative (Negative); Blood, Urine Negative (Negative); Glucose,Urine (UA) Negative (Negative); Ketones,Urine Negative (Negative); Mucus,Urine Occasional /LPF (Occasional); Nitrite,Urine Negative (Negative); Protein,Urine Negative; RBC,Urine 1 /HPF (0-4); Urine Color Yellow (Yellow); Urine Specific Gravity 1.013 (1.001-1.035); Urine Urobilinogen < 2.0 EU/DL (0.2-1.0); WBC,Urine 1 /HPF (0-6)
--- NOTE | 2016-08-29 01:56 | Hospitalist History & Physical ---
Assessment and Plan (1) Syncope Status: Acute Assessment and plan: Patient loss of blood pressure and possibly his pulse. He is known to have sick sinus syndrome but he has a recently placed pacemaker. Whether this was a pacemaker malfunction is not clear vasovagal influence may play a part because there was an association with a bowel movement. Patient will be admitted to telemetry to hospitalist service. Monitor him continuously. Check serial troponins consult cardiology Current Visit: No Qualifiers: Syncope type: unspecified Qualified Code(s): R55 - Syncope and collapse (2) Altered mental status, unspecified Status: Acute Assessment and plan: Progressive program this is occurring on top of dementia. Patient has been placed on Geodon and Seroquel recently. I believe these medications can be withheld for a short time was if he can make a difference. 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 Current Visit: Yes (3) Sick sinus syndrome due to SA node dysfunction Status: Acute Assessment and plan: Was on telemetry floor. Urologist will be on the case. There may be need to check the pacemaker is working all the time. Current Visit: No History of Present Illness Chief complaint: Syncope and hypotension History of present illness: Mr. Betancourt is a 85 year old male arriving to ED by EMS with c/o syncopal episode that onset today. Pt had this episode while having BM. Family states that prior to the syncopal episode and while on the stool, the pt began to hallucinate and start to waste picker things off the floor. He then preceded to call his 's name and then the syncopal episode began. Family reports that a week ago pt was confused, hallucinating, and "out of it." He was then sent to [facility] today from [facility] and transferred here because he became combative. Pt was given meds to calm down and is currently taking Zarelto. He has a PMHx of a heart pause, AMS, and DM. On 08/20 pt had a pacemaker placed. Family reports a CVA in 2013 and that there is no new damage since then. Pt lived alone prior to this. This gentleman was discharged from the hospital yesterday to psych unit. His confusion has been ongoing however he also had had the pacemaker was was in the hospital here he developed a syncopal episode with hypotension after he had moved his bowels and according to the son he could not feel a pulse in the patient. Note no why he would develop an palpable pulse when the pacemaker is working. Patient has been on psychotropic medications believe could contribute to his behavioral problems. Home Medications Medication Instructions Recorded Confirmed Type Aspirin EC Tab 81 mg PO DAILY 08/18/16 08/28/16 History Dutasteride/Tamsulosin HCl 1 each PO DAILY 08/18/16 08/28/16 History [Dutasteride-Tamsulosin 0.5-0.4] Lisinopril 20 mg PO DAILY 08/18/16 08/28/16 History Pantoprazole Tab [Protonix Tab] 40 mg PO DAILY 08/18/16 08/28/16 History Rivaroxaban [Xarelto] 15 mg PO DAILY 08/18/16 08/28/16 History Rosuvastatin Calcium 5 mg PO DAILY 08/18/16 08/28/16 History Carvedilol [Coreg] 3.125 mg PO BID #100 tablet 08/28/16 08/28/16 Rx QUEtiapine [SEROquel] 25 mg PO BEDTIME #0 tablet 08/28/16 08/28/16 Rx Ziprasidone Inj [Geodon Inj] 10 mg IM Q6H PRN #0 vial 08/28/16 08/28/16 Rx amLODIPine [Norvasc] 10 mg PO DAILY tablet 08/28/16 08/28/16 Rx Allergies Allergy/AdvReac Type Severity Reaction Status Date / Time lorazepam [From Ativan] AdvReac Intermediate Confusion Verified 08/28/16 20:56 Medical,Surgical,& Family Hx - Medical History Cardio: History of: Cerebrovascular Disease (2013), Hypertension, [place] (1995 OR 1996), Pacemaker (JULY 2016), Cardiovascular Problems Psychological: History of: Behavior Problems (HALLUCINATIONS;CONFUSION.) No history of: Anxiety Disorders, ADHD, Bipolar Disorder, Depression, Previous Suicide Attempt, Psychiatric/Substance Abuse Tx, Schizophrenia, Violent Behavior, Psychiatric Problems Neurology: History of: Cerebrovascular Accident (2013), Dementia, TIA HEENT: History of: Ear Problem ([place]; WEARS FELIBERTO.HEARING AIDES) Genitourinary: History of: Prostate Problems (ELEVATED PSA) Gastrointestinal: History of: GERD, Gastrointestinal Bleed Musculoskeletal: History of: Amputation, Back/Neck Problems (BACK PAIN) - Surgical History Cardiac Surgeries: Sugical HX of: Cardiac Catheterization, Cardiac Surgery ( WITH STENTS 2007) Thoracic Surgeries: Patient denies;: Organ Transplant, Lobectomy Neurologic Surgeries: Patient denies: Neurologic Surgery HEENT Surgeries: Patient denies: Tonsilectomy & Adenoidectomy Abdominal Surgeries: Surgical HX of: Abdominal Surgery, Cholecystectomy, Colonoscopy, EGD Reproductive Surgeries: Patient denies;: Genitourinary Surgery Orthopedic Surgeries: Surgical HX of;: Orthopedic Surgery (KNEE SCOPE, UNSURE) - Family History Family History: Reports;: Family Heart Disease (MOTHER), Family Psychiatric Problems (UNSURE) - Social History Smoking Status: Never smoker Frequency of Alcohol Use: None Type of Drug Use: None Review of systems: 12 point system has been assessed. What stands out is the chief complaint and history of presenting illness. Patient is very fidgety there is no cognitive output with a while. According to the son at the bedside this is no worse than was in the hospital. Has been progressively getting worse Exam - Constitutional Vitals: Period Temp Pulse Resp BP Sys/Stubbs Pulse Ox Last 24 Hr 97 F-97 F 60-60 16-17 102-102/53-53 99 General appearance: other (Very confused no cognitive output with while) - Head Head exam: Present: normocephalic, atraumatic - Eye Eye exam: Present: EOMI Pupils: Present: BLAKE - ENT ENT exam: Present: normal oropharynx - Respiratory Respiratory exam: Present: clear to auscultation bilaterally - Cardiovascular Cardiovascular exam: Present: regular rate and rhythm, other (Paced beats on telemetry and EKG) - GI/Abdominal GI/Abdominal exam: Present: normal bowel sounds, soft - Neurological Exam Neurological exam: Present: other (Confused demented no cognitive output no communication) - Psychiatric Psychiatric exam: Present: other (Severe dementia) - Skin Skin exam: Present: normal color, warm, dry Results - Labs CBC & BMP: 08/28/16 22:43 08/28/16 22:43 Lab Results: I have reviewed the past 24 hour labs
--- NOTE | 2016-08-29 07:51 | EKG Report ---
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
[2016-08-29] MEDS: DUTASTERIDE 0.5 MG CAPSULE PO SCH (08:52)
[2016-08-29] MEDS: TAMSULOSIN 0.4 MG CAPSULE PO SCH (08:52)
[2016-08-29] MEDS: ROSUVASTATIN 10 MG TABLET PO SCH (08:52)
--- NOTE | 2016-08-29 13:58 | Cardiology Consult Note ---
Francis Canela Vanessa, RN, am scribing for, and in the presence of, Josep Larios MD 13:58. Assessment and Plan - Time spent with patient Time spent with patient: Greater than 30 minutes (1) Vasovagal syncope Status: Acute Assessment and plan: Syncopal episode possibly related to vasovagal reaction during bowel movement, or could be related to orthostasis after having recently received sedative medication. In addition he is on a couple of medications for prostate which can cause hypotension/orthostatic hypotension. If this problem persists/recurs adjusting his medications may be helpful. For now, it is probably best to avoid medicines which will drop his blood pressure. The pacemaker was interrogated and is functioning normally. There were no tachyarrhythmias or pauses. Current Visit: Yes (2) Dementia Status: Chronic Assessment and plan: His mental dysfunction has increased significantly over the past few weeks, and he continues to have delirium with periods of confusion and combativeness. In the past couple weeks, he has been started on Seroquel each night and Geodon as needed for breakthrough confusion. At time of exam, he is calm and resting quietly. Current Visit: Yes (3) Status post placement of cardiac pacemaker Status: Chronic Assessment and plan: Status post single-chamber pacemaker implant on 08/[address] Zeb Clinton. Mobitz type II AV block resolved, and no further dysrhythmia has been appreciated. Device was interrogated and is functioning normally. Current Visit: Yes (4) Hypothyroidism Status: Chronic Current Visit: No (5) Sick sinus syndrome due to SA node dysfunction Status: Resolved Current Visit: No (6) Atrial flutter Status: Chronic Assessment and plan: Pulse rate is currently well controlled. Continue current regimen. Current Visit: No (7) History of CVA (cerebrovascular accident) Status: Chronic Current Visit: No (8) Hypertension Status: Chronic Assessment and plan: Blood pressure is overall well controlled. There has been no hypotension seen since admission. 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 LONA SEGURA Mr. Betancourt is a 85 year old white male with past medical history of hypertension , CAD, chronic atrial flutter status post CVA in 2013, and dementia. He was admitted to [facility] on 08/18/16 with confusion, disorientation, and diagnostic workup revealed Mobitz type II second-degree AV block. He underwent single-chamber pacemaker implantation. Status post pacer implant, interrogation of device revealed appropriate function. After resolution of AV block, he did continue to have delirium with periods of extreme confusion and agitation. He was evaluated by neurology, and acute status was felt to be related to his underlying dementia with increase in mental dysfunction and not acute ischemic event. He was discharged yesterday on 08/28/16 to [facility] facility at [facility]. Apparently, patient had been extremely combative and agitated most of the afternoon and evening yesterday after arrival to [facility] facility, and he did receive a sedative. He was later assisted up to the toilet by his 2 sons, had a bowel movement, and during this bowel movement experienced some presyncopal symptoms. There was a question as to whether or not he lost his pulse with associated hypotension. He was breathing and was assisted back to bed by his sons, and after being back in the bed was noted to be very obtunded with a glassy stare. Patient was transferred to [facility] ER and subsequently admitted to telemetry unit for further evaluation. Cardiology has been consulted for evaluation of presyncope episode status post recent pacemaker implant. EKG is unchanged and reveals normal pacemaker function. Chest x-ray shows proper lead positioning, and lead position is unchanged from previous exam. Labs have been reviewed, and they are overall unremarkable. He is afebrile, and vitals have been stable. No significant hypotension seen, and systolic BP ranging 120-140 mmHg. At time of exam, patient is resting comfortably and without agitation. He appears to be in no acute distress. Left chest pacemaker site is unchanged from previous exam, and it appears to be healing well. His son is present at bedside. Son is request to have patient's CODE STATUS changed to DNR, and patient has requested this also a for many years previously. We will honor that request. Current Medications Dutasteride (Avodart) 0.5 mg PO DAILY [facility] Last Admin: 08/29/16 08:52 Dose: 0.5 mg Rosuvastatin Calcium (Crestor) 5 mg PO DAILY [facility] Last Admin: 08/29/16 08:52 Dose: 5 mg Tamsulosin HCl (Flomax) 0.4 mg PO DAILY [facility] Last Admin: 08/29/16 08:52 Dose: 0.4 mg CC: Sendy Valencia MD - Home Medications and Allergies Home Medications: Home Medications Medication Instructions Recorded Confirmed Type Aspirin EC Tab 81 mg PO DAILY 08/18/16 08/29/16 History Dutasteride/Tamsulosin HCl 1 each PO DAILY 08/18/16 08/29/16 History [Dutasteride-Tamsulosin 0.5-0.4] Lisinopril 20 mg PO DAILY 08/18/16 08/29/16 History Pantoprazole Tab [Protonix Tab] 40 mg PO DAILY 08/18/16 08/29/16 History Rivaroxaban [Xarelto] 15 mg PO DAILY 08/18/16 08/29/16 History Rosuvastatin Calcium 5 mg PO DAILY 08/18/16 08/29/16 History Carvedilol [Coreg] 3.125 mg PO BID #100 tablet 08/28/16 08/29/16 Rx QUEtiapine [SEROquel] 25 mg PO BEDTIME #0 tablet 08/28/16 08/29/16 Rx Ziprasidone Inj [Geodon Inj] 10 mg IM Q6H PRN #0 vial 08/28/16 08/29/16 Rx amLODIPine [Norvasc] 10 mg PO DAILY tablet 08/28/16 08/29/16 Rx Allergies/Adverse Reactions: Allergies Allergy/AdvReac Type Severity Reaction Status Date / Time lorazepam [From Ativan] AdvReac Intermediate Confusion Verified 08/28/16 20:56 ROS unobtainable: due to dementia Medical,Surgical,& Family Hx - Medical History Cardio: History of: Cerebrovascular Disease (2013), Hypertension, [place] (1995 OR 1996), Pacemaker (JULY 2016), Cardiovascular Problems Psychological: History of: Behavior Problems (HALLUCINATIONS;CONFUSION.) No history of: Anxiety Disorders, ADHD, Bipolar Disorder, Depression, Previous Suicide Attempt, Psychiatric/Substance Abuse Tx, Schizophrenia, Violent Behavior, Psychiatric Problems Neurology: History of: Cerebrovascular Accident (2013), Dementia, TIA HEENT: History of: Ear Problem ([place]; WEARS FELIBERTO.HEARING AIDES) Genitourinary: History of: Prostate Problems (ELEVATED PSA) Gastrointestinal: History of: GERD, Gastrointestinal Bleed Musculoskeletal: History of: Amputation, Back/Neck Problems (BACK PAIN) - Surgical History Cardiac Surgeries: Sugical HX of: Cardiac Catheterization, Cardiac Surgery ( WITH STENTS 2007) Thoracic Surgeries: Patient denies;: Organ Transplant, Lobectomy Neurologic Surgeries: Patient denies: Neurologic Surgery HEENT Surgeries: Patient denies: Tonsilectomy & Adenoidectomy Abdominal Surgeries: Surgical HX of: Abdominal Surgery, Cholecystectomy, Colonoscopy, EGD Reproductive Surgeries: Patient denies;: Genitourinary Surgery Orthopedic Surgeries: Surgical HX of;: Orthopedic Surgery (KNEE SCOPE, UNSURE) - Family History Family History: Reports;: Family Heart Disease (MOTHER), Family Psychiatric Problems (UNSURE) - Social History Smoking Status: Never smoker Frequency of Alcohol Use: None Type of Drug Use: None Physical Examination Vital Signs Temp Pulse Resp BP Pulse Ox 97 F L 60 16 102/53 99 08/28/16 20:42 08/28/16 20:42 08/28/16 20:42 08/28/16 20:42 08/28/16 20:42 Result/EKG - Labs CBC & BMP: 08/28/16 22:43 08/28/16 22:43 Lab Results: I have reviewed the past 24 hour labs - Diagnostic Findings Procedure: Chest x-ray: image reviewed by me, report reviewed by me (08/29/16: No acute cardiopulmonary process and RV lead is well-positioned) - EKG EKG results: interpreted by me, not changed from: (ventricularly paced rhythm on 08/28/16) I, Josep Larios MD, personally performed the services described in this documentation, ascribed by Chhaya Blanco RN in my presence, and it is both accurate and complete 358 .
--- NOTE | 2016-08-29 16:54 | Neurology Consult Note ---
History of Present Illness History of present illness: Mr. Betancourt is a 85 year old right-handed white gentleman arriving to ED by EMS with c/o passing out episode that happened earlier this morning. Pt had this episode while having BM. Family states that prior to the syncopal episode and while on the stool, the pt began to hallucinate and start to pecan picker things off the floor. He then preceded to call his 's name and then the syncopal episode began. Family reports that a week ago pt was confused, hallucinating, and "out of it." He was then sent to [facility] today from [facility] and transferred here because he became combative. CT of the head is negative for any acute pathology. Home Medications Medication Instructions Recorded Confirmed Type Aspirin EC Tab 81 mg PO DAILY 08/18/16 08/29/16 History Dutasteride/Tamsulosin HCl 1 each PO DAILY 08/18/16 08/29/16 History [Dutasteride-Tamsulosin 0.5-0.4] Lisinopril 20 mg PO DAILY 08/18/16 08/29/16 History Pantoprazole Tab [Protonix Tab] 40 mg PO DAILY 08/18/16 08/29/16 History Rivaroxaban [Xarelto] 15 mg PO DAILY 08/18/16 08/29/16 History Rosuvastatin Calcium 5 mg PO DAILY 08/18/16 08/29/16 History Carvedilol [Coreg] 3.125 mg PO BID #100 tablet 08/28/16 08/29/16 Rx QUEtiapine [SEROquel] 25 mg PO BEDTIME #0 tablet 08/28/16 08/29/16 Rx Ziprasidone Inj [Geodon Inj] 10 mg IM Q6H PRN #0 vial 08/28/16 08/29/16 Rx amLODIPine [Norvasc] 10 mg PO DAILY tablet 08/28/16 08/29/16 Rx Allergies Allergy/AdvReac Type Severity Reaction Status Date / Time lorazepam [From Ativan] AdvReac Intermediate Confusion Verified 08/28/16 20:56 ROS unobtainable: due to mental status Medical,Surgical,& Family Hx - Medical History Cardio: History of: Cerebrovascular Disease (2013), Hypertension, [place] (1995 OR 1996), Pacemaker (JULY 2016), Cardiovascular Problems Psychological: History of: Behavior Problems (HALLUCINATIONS;CONFUSION.) No history of: Anxiety Disorders, ADHD, Bipolar Disorder, Depression, Previous Suicide Attempt, Psychiatric/Substance Abuse Tx, Schizophrenia, Violent Behavior, Psychiatric Problems Neurology: History of: Cerebrovascular Accident (2014), Dementia, TIA HEENT: History of: Ear Problem ([place]; WEARS FELIBERTO.HEARING AIDES) Genitourinary: History of: Prostate Problems (ELEVATED PSA) Gastrointestinal: History of: GERD, Gastrointestinal Bleed Musculoskeletal: History of: Amputation, Back/Neck Problems (BACK PAIN) - Surgical History Cardiac Surgeries: Sugical HX of: Cardiac Catheterization, Cardiac Surgery ( WITH STENTS 2007) Thoracic Surgeries: Patient denies;: Organ Transplant, Lobectomy Neurologic Surgeries: Patient denies: Neurologic Surgery HEENT Surgeries: Patient denies: Tonsilectomy & Adenoidectomy Abdominal Surgeries: Surgical HX of: Abdominal Surgery, Cholecystectomy, Colonoscopy, EGD Reproductive Surgeries: Patient denies;: Genitourinary Surgery Orthopedic Surgeries: Surgical HX of;: Orthopedic Surgery (KNEE SCOPE, UNSURE) - Family History Family History: Reports;: Family Heart Disease (MOTHER), Family Psychiatric Problems (UNSURE) - Social History Smoking Status: Never smoker Frequency of Alcohol Use: None Type of Drug Use: None Exam - Constitutional Vitals: Period Temp Pulse Resp BP Sys/Stubbs Pulse Ox Last 24 Hr 97.3 F-99.4 F 60-66 18-20 118-142/49-71 93-99 Exam: GENERAL: Patient is in no acute distress. NECK: Neck is supple. There is no JVD. No carotid bruits present. No thyroid masses. CVS: First and second heart sounds are normal. There is no S3 present. Regular rate and rhythm. RESPIRATORY: Lungs are clear to auscultation without any rales or rhonchi. ABDOMEN: Soft and non-tender. Bowel sounds are present. There is no hepatosplenomegaly. EXT: There is no palpable edema. Peripheral pulses are present. Skin: No rashes Central Nervous system: General: Alert, awake Speech: Fluent but dysarthric Comprehension: Fair Facial expressions: Normal Cranial Nerves: Movements are positive. No facial asymmetry seen Motor: Bulk and Tone is normal. Strength symmetrical Sensory: Grossly intact for all the modalities of PP, LT and temp sense Reflexes: 1+ and symmetrical Cerebellar function: Slow finger to nose and heel to ken testing. Toes: Equivocal Gait: Not tested Results - Labs CBC & BMP: 08/28/16 22:43 08/28/16 22:43 Assessment and Plan (1) Delirium Status: Acute Assessment and plan: The etiology is not clear. Underlying dementia cannot be excluded entirely. Add Seroquel Current Visit: Yes (2) Vasovagal syncope Status: Acute Assessment and plan: This is most likely vasovagal phenomena. We will check EEG in the morning Current Visit: Yes
--- NOTE | 2016-08-29 16:55 | Hospitalist Progress Note ---
Hospitalist: Subjective Interval history: Mr Betancourt has not had any syncope symptoms since admission. I agree with Dr Lariso that the circumstances suggest that he had vasovagal syncope. The pacemaker is working normally and there were no tachyarrhythmias or pauses. [facility] will take him back tomorrow if he continues to do well tonight, and his son is interested in this as he hopes that with medication adjustments he will be able to return home. His son understands that that might not work, and is also considering NH placement. Plan: syncope- tele monitor, back to [facility] tomorrow tachy/roosevelt- pacemaker working well dementia- his function has worsened significantly over the last months and he may need to go to NH as a resident. he is on Geodon and Seroquel and is drowsy when I entered the room but restless and trying to get out of bed once he woke. Exam - Constitutional Vitals: Period Temp Pulse Resp BP Sys/Stubbs Pulse Ox Last 24 Hr 97.3 F-99.4 F 60-66 18-20 118-142/49-71 93-99 General appearance: normal weight, no acute distress (once he woke, he became restless but allowed his son to redirect him.) - Eye Eye exam: Present: EOMI. Absent: scleral icterus - Respiratory Respiratory exam: Present: clear to auscultation bilaterally - Cardiovascular Cardiovascular exam: Present: regular rate and rhythm - GI/Abdominal GI/Abdominal exam: Present: normal bowel sounds, soft. Absent: tenderness - Extremities Exam Extremities exam: Absent: edema Results - Labs CBC & BMP: 08/28/16 22:43 08/28/16 22:43 Lab Results: I have reviewed the past 24 hour labs
--- NOTE | 2016-08-30 08:01 | Discharge Summary ---
Hospital Course - Hospital Course Hospital Course: Mr Betancourt came to the hospital after syncope with BM at [facility]. His telemetry and pacemaker look good. No other cause for his syncope was identified. He has had no further symptoms. He is medically stable to return to [facility]. WHile here I have stopped his norvasc- BP looks good off meds but will restart his low dose coreg and lisinopril, and they can watch his BP at [facility]. Seroquel started by Dr Matute. He will need snf placement after [facility] most likely and his son is aware of this. - Time spent with patient Time with patient DS: Greater than 30 minutes (35 minutes spent in discharge coordination, medicine reconciliation and documentation) Diagnosis - Discharge Diagnosis (1) Status post placement of cardiac pacemaker Status: Chronic (2) Dementia Status: Chronic (3) Psychosis Status: Acute (4) Syncope Status: Acute Specialty Discharge - Follow Up or Referrals Follow up with: Your, PCP [Other] (after [facility]) Discharge Plan - Discharge Data Disposition: Disch/Xfer to [facility] Condition at Discharge: Stable Discharge Diet: heart healthy Activity: resume usual activities as tolerated - Discharge Medications Continue Rivaroxaban [Xarelto] 15 mg PO DAILY Pantoprazole Tab [Protonix Tab] 40 mg PO DAILY Lisinopril 20 mg PO DAILY Aspirin EC Tab 81 mg PO DAILY QUEtiapine [SEROquel] 25 mg PO BEDTIME #0 tablet Ziprasidone Inj [Geodon Inj] 10 mg IM Q6H PRN #0 vial PRN Reason: Agitation Rosuvastatin Calcium 5 mg PO DAILY Dutasteride/Tamsulosin HCl [Dutasteride-Tamsulosin 0.5-0.4] 1 each PO DAILY Carvedilol [Coreg] 3.125 mg PO BID #100 tablet Discontinued amLODIPine [Norvasc] 10 mg PO DAILY tablet - Follow Up or Referral Follow Up: Your, PCP [Other] (after [facility]) - Forms/Instructions Instructions: Syncope (DC), Dementia (GEN) Exam - Constitutional Vitals: Period Temp Pulse Resp BP Sys/Stubbs Pulse Ox Last 24 Hr 96.7 F-99.2 F 60-64 18-20 118-141/49-87 93-100 General appearance: normal weight, no acute distress - Eye Eye exam: Present: EOMI. Absent: scleral icterus - Respiratory Respiratory exam: Present: clear to auscultation bilaterally - Cardiovascular Cardiovascular exam: Present: regular rate and rhythm - GI/Abdominal GI/Abdominal exam: Present: normal bowel sounds, soft. Absent: tenderness - Extremities Exam Extremities exam: Absent: edema Discharge Results Procedures and tests throughout hospitalization: Pending Orders 08/30/16 04:00 NE EEG adult awake/drowsy IN AM DS: Provider Date of admission: 08/29/16 01:49 Primary care physician: . No PCP Attending physician on admission: Dayo Campbell MD Consults: 08/29/16 01:53 Consult to Physician [CONS] Routine Comment: On-call/syncope with hypotension Consulting Provider: Cardiology - [facility] Consult to Specialist Group: Cardiology When should Consulting Provider be notified: In am Person Notified: JANI Date Notified: 08/29/16 Time Notified: 08:05 08/29/16 14:20 Consult to Physician [CONS] Routine Comment: CONFUSION AND HALLUCINATIONS Consulting Provider: Federico Matute Consult to Specialist Group: Neurology When should Consulting Provider be notified: Now Consult Notification Comment: LEFT MESSAGE ON VOICE MAIL AT OFFICE AT 1430 FOR CONSULT Discharging clinician: Sendy Valencia MD
[2016-08-30 08:06] VITALS: BP 134/81
[2016-08-30] MEDS ORDERED: ASPIRIN EC 81 MG TABLET PO SCH (09:00)
[2016-08-30] MEDS ORDERED: PANTOPRAZOLE 40 MG TABLET PO SCH (09:00)
[2016-08-30] MEDS: DUTASTERIDE 0.5 MG CAPSULE PO SCH (09:00)
[2016-08-30] MEDS: ROSUVASTATIN 10 MG TABLET PO SCH (09:00)
--- NOTE | 2016-08-30 09:00 | Neurology Progress Note ---
Neurology - PN : Subjective Interval history: Patient seems to be doing about the same. Somehow Seroquel did not get started yesterday. However patient is being discharged back to [facility] today. He did not sleep good last night and sleeping at this point Exam (Progress Note) - Constitutional Vitals: Period Temp Pulse Resp BP Sys/Stubbs Pulse Ox Last 24 Hr 96.7 F-99.2 F 60-66 18-20 118-141/68-87 92-100 Exam: GENERAL: Patient is in no acute distress. NECK: Neck is supple. There is no JVD. No carotid bruits present. No thyroid masses. CVS: First and second heart sounds are normal. There is no S3 present. Regular rate and rhythm. RESPIRATORY: Lungs are clear to auscultation without any rales or rhonchi. ABDOMEN: Soft and non-tender. Bowel sounds are present. There is no hepatosplenomegaly. EXT: There is no palpable edema. Peripheral pulses are present. Skin: No rashes Central Nervous system: General: Alert, awake Speech: Fluent but dysarthric Comprehension: Fair Facial expressions: Normal Cranial Nerves: Movements are positive. No facial asymmetry seen Motor: Bulk and Tone is normal. Strength symmetrical Sensory: Grossly intact for all the modalities of PP, LT and temp sense Reflexes: 1+ and symmetrical Cerebellar function: Slow finger to nose and heel to ken testing. Toes: Equivocal Gait: Not tested Results - Labs CBC & BMP: 08/28/16 22:43 08/28/16 22:43 Assessment and Plan (1) Delirium Status: Acute Assessment and plan: The etiology is not clear. Underlying dementia cannot be excluded entirely. Defer antipsychotics management to [facility] Current Visit: Yes (2) Vasovagal syncope Status: Acute Assessment and plan: This is most likely vasovagal phenomena. Current Visit: Yes Specialty Discharge - Follow Up or Referrals Follow up with: Your, PCP [Other] (after [facility])
[2016-08-30] MEDS: TAMSULOSIN 0.4 MG CAPSULE PO SCH (09:01)
== END 2016-08-30 13:46 | DRG 312 ==
LOC: EDUNIT# → EDBD → N.ED 20:41 → SUATTDRO 08-29 01:49 → N.EDINP 08-29 01:49 → N.TELEN 08-29 02:18
PROVIDERS: ADMIT Internal Medicine Infectious Disease; ATTEND Internal Medicine

== ENCOUNTER 2017-01-07 11:57 | Inpatient (IN) ==
[2017-01-07] MEDS ORDERED: SODIUM CHLORIDE 0.9% 500 ML IV STA (13:17)
--- NOTE | 2017-01-07 13:40 | CT Report ---
CT brain Indication: Mental status changes Comparison: 28 Aug 2016 Technique: Axial CT imaging of the brain is performed without contrast with 3 mm increments. Findings: No evidence of hemorrhage, mass mass effect midline shift or acute infarct seen. There is moderate diffuse cerebral atrophy. There are areas of decreased density seen within the white matter. Small area of focal decreased density and volume loss is present in the left posterior parietal lobe, consistent with previous infarct. Appearance is similar to previous study. Otherwise the brain parenchyma attenuation and differentiation appears within normal limits. The ventricles and cisterns are normal in caliber. No cranial or skull base abnormality is identified. Impression: No evidence of acute process or interval change. This CT exam was performed using one or more the following dose reduction techniques: Automated exposure control, adjustment of the MA and/or KV according to patient size, or use of iterative reconstruction technique. PROCEDURE INTERPRETED AT [facility] DEPARTMENT OF RADIOLOGY Final Report Signed by: Dr. Minh Otero
--- NOTE | 2017-01-07 13:41 | XRay Report ---
XR chest 1V portable Indication: Altered mental status Comparison: 10 Sep 2016 Findings: The heart and mediastinum are stable in size and configuration. Pacemaker device is unchanged in position. The pulmonary vascularity is normal in caliber. No lung infiltrates, effusions, pneumothorax or other abnormality is demonstrated. Impression: Normal chest x-ray PROCEDURE INTERPRETED AT [facility] DEPARTMENT OF RADIOLOGY Final Report Signed by: Dr. Minh Otero
[2017-01-07 14:49] LABS: Basophils % 0.1 % (0.0-0.8); Eosinophils % 0.4 % (0.00-10.9); Hemoglobin 13.2 GM/DL (14.0-18.0); Immature Granulocytes % 0.3 %; Immature Granulocytes Absolute 0.02 #; Lymphocytes # 1.1 10*3/uL (1.4-4.0); Lymphocytes % 14.3 % (21.2-54.2); Mean Corpuscular Hemoglobin 32 PG (27-34); Mean Corpuscular Volume 96.9 FL (87-102); Mean Platelet Volume 11.5 FL (9.6-12.0); Monocytes # 0.5 10*3/uL (0.11-0.8); Monocytes % 6.5 % (1.7-12.7); Neutrophils # 6.2 10*3/uL (1.4-7.4); Neutrophils % 78.4 % (38.7-73.9); Platelet Count 100 T/CUMM (130-400); Red Blood Count 4.13 MC/CUMM (3.8-5.5); White Blood Count 7.9 T/CUMM (4-12)
[2017-01-07 15:05] LABS: INR 1.2; PT Patient Result 12.7 SECS
[2017-01-07 15:14] LABS: Albumin 3.1 G/DL (3.4-5.0); Bilirubin,Total 0.5 MG/DL (0.2-1.0); Calcium 8.1 MG/DL (8.5-10.1); Magnesium 2.1 MG/DL (1.8-2.4); Osmolality,Calculated 287.1 MOS/KG (273-304); Potassium 4.3 MMOL/L (3.5-5.1); Total Protein 7.3 G/DL (6.4-8.3)
--- NOTE | 2017-01-07 15:16 | Emergency Department Note ---
IConner Emily, am scribing for, and in the presence of, Martin Houston MD 13: 21. Rosemarie Canela Charles R, MD, personally performed the services described in this documentation, ascribed by Nicole Prieto in my presence, and it is both accurate and complete [phone] . Arrival - Arrival Chief Complaint: Altered Mental Status Stated Complaint: altered mental status ED Nursing Triage Note: Brought in per EMS from [facility] with c/o altered mental status onset this am per [facility] staff. Patient with eyes closed, non-verbal at present. Mode of Arrival: Stretcher Limitations: Altered Mental Status (dementia) Source: Family Time Seen by Provider: 01/07/17 12:34 - History of Present Illness HPI Narrative: Pt is a 86 y/o male who was brought to ED by EMS from [facility] for further evaluation of AMS that happened earlier today. Staff reports pt fell against wall and slid down, but did not hit head. Family notes staff told her that he became unresponsive later after fall and has a decrease in appetite. Family states he jabbers when talks but has been sleeping in ED and non verbal. Family notes pt has not been given extra medication past few days, that usually helps with moments of aggravation. PMHx of dementia. Onset (ago): hour(s) Consistency: constant Severity: mild, moderate Severity scale (1-10): 4 Quality: other Allergies/Adverse Reactions: Allergies Allergy/AdvReac Type Severity Reaction Status Date / Time lorazepam [From Ativan] AdvReac Intermediate Confusion Verified 08/28/16 20:56 Home Medications: Home Medications Medication Instructions Recorded Confirmed Type Aspirin EC Tab 81 mg PO DAILY 08/18/16 08/30/16 History Dutasteride/Tamsulosin HCl 1 each PO DAILY 08/18/16 08/30/16 History [Dutasteride-Tamsulosin 0.5-0.4] Lisinopril 20 mg PO DAILY 08/18/16 08/30/16 History Pantoprazole Tab [Protonix Tab] 40 mg PO DAILY 08/18/16 08/30/16 History Rivaroxaban [Xarelto] 15 mg PO DAILY 08/18/16 08/30/16 History Rosuvastatin Calcium 5 mg PO DAILY 08/18/16 08/30/16 History Carvedilol [Coreg] 3.125 mg PO BID 08/30/16 08/30/16 History Acetaminophen Tab [Tylenol Tab] 650 mg PO Q6H PRN #0 tablet 09/12/16 Rx Alum/Mag/Simeth Max Str Liquid 30 ml PO Q4H PRN #0 09/12/16 Rx [Mylanta Max Strength Liquid] Magnesium Hydroxide Susp [Milk of 30 ml PO DAILY PRN #0 09/12/16 Rx Magnesia] QUEtiapine [SEROquel] 100 mg PO BEDTIME tablet 09/12/16 Rx Temazepam [Restoril] 15 mg PO BEDTIME #30 capsule 09/12/16 Rx Zaleplon [Sonata] 5 mg PO BEDTIME #30 capsule 09/12/16 Rx Review of System - Review of System ROS unobtainable: due to mental status (dementia) Medical,Surgical,& Family Hx - Medical History Cardio: History of: Cerebrovascular Disease (2013), Hypertension, [place] (1995 OR 1996), Pacemaker (JULY 2016), Cardiovascular Problems Psychological: History of: Behavior Problems (HALLUCINATIONS;CONFUSION.) No history of: Anxiety Disorders, ADHD, Bipolar Disorder, Depression, Previous Suicide Attempt, Psychiatric/Substance Abuse Tx, Schizophrenia, Violent Behavior, Psychiatric Problems Neurology: History of: Cerebrovascular Accident (2013), Dementia, TIA HEENT: History of: Ear Problem ([place]; WEARS FELIBERTO.HEARING AIDES) Genitourinary: History of: Prostate Problems (ELEVATED PSA) Gastrointestinal: History of: GERD, Gastrointestinal Bleed Musculoskeletal: History of: Amputation, Back/Neck Problems (BACK PAIN) - Surgical History Cardiac Surgeries: Sugical HX of: Cardiac Catheterization, Cardiac Surgery ( WITH STENTS 2007) Thoracic Surgeries: Patient denies;: Organ Transplant, Lobectomy Neurologic Surgeries: Patient denies: Neurologic Surgery HEENT Surgeries: Patient denies: Tonsilectomy & Adenoidectomy Abdominal Surgeries: Surgical HX of: Abdominal Surgery, Cholecystectomy, Colonoscopy, EGD Reproductive Surgeries: Patient denies;: Genitourinary Surgery Orthopedic Surgeries: Surgical HX of;: Orthopedic Surgery (KNEE SCOPE, UNSURE) - Family History Family History: Reports;: Family Heart Disease (MOTHER), Family Psychiatric Problems (UNSURE) - Social History Smoking Status: Never smoker Frequency of Alcohol Use: Unknown Type of Drug Use: Unknown Marital Status: Single Lives With:: [facility] Functional capacity: wheelchair bound Exam Vital Signs: Vital Signs Temperature 98.0 F 01/07/17 11:57 Pulse Rate 65 01/07/17 11:57 Respiratory Rate 18 01/07/17 15:29 Blood Pressure 123/59 01/07/17 11:57 O2 Sat by Pulse Oximetry 98 01/07/17 11:57 - General Exam limited due to: ALOC (expressive aphasia) General appearance: other (altered secondary to dementia) - Head Head exam: Present: atraumatic, normocephalic - Eye Eye exam: Present: other (sunken orbits) - ENT ENT exam: Present: mucous membranes dry. Absent: mucous membranes moist - Chest Chest inspection: Present: symmetric chest wall rise - Respiratory Respiratory exam: Present: normal lung sounds bilaterally. Absent: respiratory distress - Cardiovascular Cardiovascular exam: Present: regular rate, normal rhythm, normal heart sounds - Extremities Exam Extremities exam: Absent: full ROM (limited ROM secondary to pt forcibly pulling back when extremities examed), pedal edema - Neurological Exam Neurological exam: Present: CN II-XII intact. Absent: alert, oriented X3, motor sensory deficit - Skin Skin exam: Present: warm, dry. Absent: intact (poor skin tugor) Course - Consultations Consultation #1: Hospitalist will admit patient Time: 17:11 Results - Labs CBC & BMP: 01/07/17 14:36 01/07/17 14:36 Lab Results: I have reviewed the patients labs Labs: Laboratory Tests 01/07/17 14:36 WBC 7.9 RBC 4.13 Hgb 13.2 L Hct 40.0 L Plt Count 100 L Neut % (Auto) 78.4 H Lymph % (Auto) 14.3 L Lymph # (Auto) 1.1 L - Diagnostic Findings Procedure: Chest x-ray: report reviewed by me (Nml CXR.), CT: report reviewed by me (Head wo con: No evidence of acute process or interval change.) Disposition Clinical Impression: Confusion, Major neurocognitive disorder due to Alzheimer's disease, probable, with behavioral disturbance, Altered mental status, unspecified, UTI (urinary tract infection) Case discussed with: patient, patient's family Disposition: Still a Patient Condition: Stable Time of Disposition: 17:12
[2017-01-07 15:17] LABS: Troponin I Only 0.052 NG/ML (0.00-0.045)
[2017-01-07 16:47] LABS: Apearance,Urine Slightly Hazy (Clear); Bacteria,Urine Occasional /HPF (Few); Bilirubin,Urine Negative (Negative); Blood, Urine Small mg/dL (Negative); Glucose,Urine (UA) Negative (Negative); Ketones,Urine 5 mg/dL (Negative); Mucus,Urine Occasional /LPF (Occasional); Nitrite,Urine Negative (Negative); Protein,Urine 30 MG/DL; RBC,Urine 7 /HPF (0-4); Squamous Epithelial Cell,Urine Occasional /HPF (0-10); Urine Color Yellow (Yellow); Urine Specific Gravity 1.015 (1.001-1.035); Urine Urobilinogen < 2.0 EU/DL (0.2-1.0); WBC,Urine 195 /HPF (0-6)
[2017-01-07] MEDS ORDERED: cefTRIAXone 1,000 MG in SODIUM CHLORIDE 0.9% 100 ML IV STA (17:12)
[2017-01-07] MEDS ORDERED: cefTRIAXone 1,000 MG VIAL ONE (17:59)
--- NOTE | 2017-01-07 19:01 | Hospitalist History & Physical ---
<Johanna Barrientos - Last Filed: 01/07/17 19:11> Assessment and Plan (1) Altered mental status, unspecified Status: Acute Assessment and plan: Admit to med surg. Place on monitored bed. Pt. has severe dementia and UTI which are collectively adding to AMS. Blood cultures pending. WBC normal. Ammonia negative. Repeat labs in the am. Sitter needed to observe patient. Current Visit: Yes (2) UTI (urinary tract infection) Status: Acute Assessment and plan: IVF. IV antibiotics (Rocephin). Pending culture. Current Visit: Yes (3) History of CVA (cerebrovascular accident) Status: Chronic Assessment and plan: Pt. had CVA 3 1/2 years ago. On xarelto. Current Visit: No (4) Sick sinus syndrome due to SA node dysfunction Status: Resolved Assessment and plan: Pacemaker placed in July 2016 Current Visit: No (5) Hypertension Status: Chronic Current Visit: No History of Present Illness Chief complaint: Altered mental status History of present illness: Mr. Betancourt is a 86 year old white male with a history of gerd, hypertension, CVA , severe dementia, [place], and pacemaker that presented to the ED via EMS from [facility] for further evaluation of altered mental status. Patient's [id number] is present at the bedside and provides the history. Daughter in law reports that the patient was fine, driving and performing daily activities up until August at which point he became severely demented and was placed in [facility]. Today, the staff at the skilled nursing reported the patient fell and hit his head against the wall. They report that after suffering from the fall, pt became unresponsive. He was brought to the ED and has been mostly non verbal since. Pt. was evaluated in the the ED. CXR is normal and CT is negative for any acute process. UA removed UTI. Pt.'s case has been discussed with ER physician and hospitalist Dr. Simon, pt. will be admitted to the hospitalist service for further evaluation and treatment. Pt.'s CODE STATUS has been discussed and pt is a DNR. Home Medications Medication Instructions Recorded Confirmed Type Aspirin EC Tab 81 mg PO DAILY 08/18/16 01/07/17 History Lisinopril 20 mg PO DAILY 08/18/16 01/07/17 History Pantoprazole Tab [Protonix Tab] 40 mg PO DAILY 08/18/16 01/07/17 History Rosuvastatin Calcium 5 mg PO DAILY 08/18/16 01/07/17 History Carvedilol [Coreg] 3.125 mg PO BID 08/30/16 01/07/17 History Acetaminophen Tab [Tylenol Tab] 650 mg PO Q6H PRN #0 tablet 09/12/16 01/07/17 Rx Alum/Mag/Simeth Max Str Liquid 30 ml PO Q4H PRN #0 09/12/16 01/07/17 Rx [Mylanta Max Strength Liquid] Magnesium Hydroxide Susp [Milk of 30 ml PO DAILY PRN #0 09/12/16 01/07/17 Rx Magnesia] Divalproex Sprinkle [Depakote 125 mg PO BID 01/07/17 01/07/17 History Sprinkle] Melatonin 6 mg PO BEDTIME 01/07/17 01/07/17 History Tamsulosin HCl [Tamsulosin HCl] 0.4 mg PO DAILY 01/07/17 01/07/17 History clonazePAM [Clonazepam] 1 mg PO Q8H PRN 01/07/17 01/07/17 History Allergies Allergy/AdvReac Type Severity Reaction Status Date / Time lorazepam [From Ativan] AdvReac Intermediate Confusion Verified 08/28/16 20:56 Medical,Surgical,& Family Hx - Medical History Cardio: History of: Cerebrovascular Disease (2013), Hypertension, [place] (1995 OR 1996), Pacemaker (JULY 2016), Cardiovascular Problems Psychological: History of: Behavior Problems (HALLUCINATIONS;CONFUSION.) No history of: Anxiety Disorders, ADHD, Bipolar Disorder, Depression, Previous Suicide Attempt, Psychiatric/Substance Abuse Tx, Schizophrenia, Violent Behavior, Psychiatric Problems Neurology: History of: Cerebrovascular Accident (2013), Dementia, TIA HEENT: History of: Ear Problem ([place]; WEARS FELIBERTO.HEARING AIDES) Genitourinary: History of: Prostate Problems (ELEVATED PSA) Gastrointestinal: History of: GERD, Gastrointestinal Bleed Musculoskeletal: History of: Amputation, Back/Neck Problems (BACK PAIN) - Surgical History Cardiac Surgeries: Sugical HX of: Cardiac Catheterization, Cardiac Surgery ( WITH STENTS 2007) Thoracic Surgeries: Patient denies;: Organ Transplant, Lobectomy Neurologic Surgeries: Patient denies: Neurologic Surgery HEENT Surgeries: Patient denies: Tonsilectomy & Adenoidectomy Abdominal Surgeries: Surgical HX of: Abdominal Surgery, Cholecystectomy, Colonoscopy, EGD Reproductive Surgeries: Patient denies;: Genitourinary Surgery Orthopedic Surgeries: Surgical HX of;: Orthopedic Surgery (KNEE SCOPE, UNSURE) - Family History Family History: Reports;: Family Heart Disease (MOTHER), Family Psychiatric Problems (UNSURE) - Social History Smoking Status: Never smoker Frequency of Alcohol Use: Unknown Type of Drug Use: Unknown Marital Status: 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 Pt's daughter in law reports increased weakness and lethargy. Exam - Constitutional Vitals: Period Temp Pulse Resp BP Sys/Stubbs Pulse Ox Last 24 Hr 98.0 F-98.0 F 65-65 18-20 123-123/59-59 98 General appearance: normal weight, no acute distress - Head Head exam: Present: normal inspection, normocephalic - Eye Eye exam: Present: EOMI. Absent: scleral icterus Pupils: Present: BLAKE - ENT ENT exam: Present: normal exam - Neck Neck exam: Present: normal inspection - Respiratory Respiratory exam: Present: clear to auscultation bilaterally - Cardiovascular Cardiovascular exam: Present: regular rate and rhythm - GI/Abdominal GI/Abdominal exam: Present: normal bowel sounds, firm, tenderness - Extremities Exam Extremities exam: Present: normal capillary refill. Absent: edema - Neurological Exam Neurological exam: Present: altered. Absent: oriented X3 - Psychiatric Psychiatric exam: Present: agitated. Absent: normal affect - Skin Skin exam: Present: normal color, warm, dry Results - Labs CBC & BMP: 01/07/17 14:36 01/07/17 14:36 Lab Results: I have reviewed the past 24 hour labs <Therese Simon - Last Filed: 01/07/17 20:07> Assessment and Plan (1) UTI (urinary tract infection) Status: Acute Current Visit: Yes (2) Hypertension Status: Chronic Assessment and plan: could be orthostatic, cont coreg Current Visit: No (3) Sick sinus syndrome due to SA node dysfunction Status: Resolved Assessment and plan: previous hx of atrial fibrillation Current Visit: No (4) History of CVA (cerebrovascular accident) Status: Chronic Assessment and plan: xarelto will be restarted, please confirm on med list Current Visit: No (5) Syncope Status: Acute Assessment and plan: could be orthostatic, ns bolus, would not cooperate with Physical exam Current Visit: No Qualifiers: Syncope type: unspecified Qualified Code(s): R55 - Syncope and collapse (6) Major neurocognitive disorder due to Alzheimer's disease, probable, with behavioral disturbance Status: Acute Assessment and plan: not on any meds, appears to be advanced, dnr, meds probably would not help Current Visit: Yes (7) Major depressive disorder severe Status: Acute Assessment and plan: depakote cont, depakote level Current Visit: No History of Present Illness History of present illness: Mr. Betancourt is a 86 year old male seen and examined. Patient would not cooperate with physical exam remained in a position on his left side. We did clarify his CODE STATUS with he is [id number] and he is a DNR. Patient does have a UTI which would be enough to make him confused. Patient will need a sitter at bedside. Family will arrange for that beginning tonight. Patient has advanced dementia and could not answer questions. 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 [facility] Exam - Constitutional Vitals: Period Temp Pulse Resp BP Sys/Stubbs Pulse Ox Last 24 Hr 98.0 F-98.0 F 65-65 18-20 123-123/59-59 98 - Eye Pupils: Present: normal accommodation - ENT ENT exam: Present: normal external ear exam - Neck Neck exam: Absent: lymphadenopathy, thyromegaly - Cardiovascular Cardiovascular exam: Present: systolic murmur - Extremities Exam Extremities exam: Present: normal inspection - Neurological Exam Neurological exam: Present: other (Could not assess due to lack of cooperation) Results - Labs CBC & BMP: 01/07/17 14:36 01/07/17 14:36 - Diagnostic Findings Procedure: Chest x-ray: report reviewed by me (Nothing acute), CT: report reviewed by me (No acute changes on head CT)
[2017-01-07] MEDS ORDERED: ACETAMINOPHEN 325 MG TABLET PO PRN ×2 (20:53)
[2017-01-07] MEDS ORDERED: LACTULOSE 20 GM/30 ML UDCUP PO PRN (20:53)
[2017-01-07] MEDS ORDERED: SODIUM CHLORIDE 0.9% 1,000 ML IV ONE (20:53)
[2017-01-07] MEDS ORDERED: ONDANSETRON 4 MG/2 ML VIAL IV PRN (20:53)
[2017-01-07 22:10] LABS: Partial Thromboplastin Time 28.2 SECS (0-40)
[2017-01-07 22:13] LABS: Magnesium 1.9 MG/DL (1.8-2.4); Thyroid Stimulating Hormone 3.64 uIU/ml (0.358-3.74)
[2017-01-07] MEDS: DIVALPROEX SPRINKLE 125 MG CAPSULE PO SCH (22:22)
[2017-01-07] MEDS: CARVEDILOL 3.125 MG TABLET PO SCH (22:23)
[2017-01-07] MEDS: FAMOTIDINE 20 MG TABLET PO SCH (22:26)
[2017-01-08] MEDS: SODIUM CHLORIDE 0.9% 1,000 ML IV SCH ×3 (02:05→21:35)
[2017-01-08 07:33] LABS: Basophils % 0.4 % (0.0-0.8); Eosinophils % 0.6 % (0.00-10.9); Hematocrit 34.7 VOL% (42.0-52.0); Hemoglobin 11.4 GM/DL (14.0-18.0); Immature Granulocytes % 0.2 %; Immature Granulocytes Absolute 0.01 #; Lymphocytes # 1.5 10*3/uL (1.4-4.0); Lymphocytes % 29.4 % (21.2-54.2); Mean Corpuscular HGB Conc 32.9 GM/DL (32-36); Mean Corpuscular Hemoglobin 32 PG (27-34); Mean Corpuscular Volume 96.7 FL (87-102); Mean Platelet Volume 12.1 FL (9.6-12.0); Monocytes # 0.6 10*3/uL (0.11-0.8); Monocytes % 11.4 % (1.7-12.7); Red Blood Count 3.59 MC/CUMM (3.8-5.5); White Blood Count 5.1 T/CUMM (4-12)
[2017-01-08 07:36] LABS: Platelet Count 92 T/CUMM (130-400)
[2017-01-08 07:54] LABS: Hypochromasia 1+
[2017-01-08 07:55] LABS: Microcytosis 1+; Ovalocytes Few; Platelet Estimate Decreased
[2017-01-08] MEDS: ROSUVASTATIN 10 MG TABLET PO SCH (08:45)
[2017-01-08] MEDS: FAMOTIDINE 20 MG TABLET PO SCH ×2 (08:45→21:34)
[2017-01-08] MEDS: DUTASTERIDE 0.5 MG CAPSULE PO SCH (08:45)
[2017-01-08] MEDS: ASPIRIN EC 81 MG TABLET PO SCH (08:45)
[2017-01-08] MEDS: RIVAROXABAN 15 MG TABLET PO SCH (08:45)
[2017-01-08] MEDS: CARVEDILOL 3.125 MG TABLET PO SCH ×2 (08:46→16:42)
[2017-01-08] MEDS: DIVALPROEX SPRINKLE 125 MG CAPSULE PO SCH ×2 (08:46→21:33)
[2017-01-08] MEDS: TAMSULOSIN 0.4 MG CAPSULE PO SCH (08:46)
[2017-01-08] MEDS ORDERED: cefTRIAXone 2,000 MG in SODIUM CHLORIDE 0.9% 100 ML IV SCH (09:00)
[2017-01-08] MEDS: cefTRIAXone 2,000 MG in SODIUM CHLORIDE 0.9% 100 ML IV SCH (11:05)
--- NOTE | 2017-01-08 11:45 | Hospitalist Progress Note ---
Assessment and Plan (1) Dementia Status: Chronic Current Visit: No Qualifiers: Dementia type: Alzheimer's disease (2) UTI (urinary tract infection) Status: Acute Assessment and plan: He continues on intravenous ceftriaxone. Current Visit: Yes Hospitalist: Subjective Interval history: Patient is very confused and intermittently agitated. He is noncommunicative. He has a bedside sitter. Exam - Constitutional Vitals: Period Temp Pulse Resp BP Sys/Stubbs Pulse Ox Last 24 Hr 97.2 F-98.2 F 60-86 18-22 122-177/59-86 96-98 General appearance: no acute distress - Head Head exam: Present: normal inspection - Neck Neck exam: Present: normal inspection - Respiratory Respiratory exam: Present: clear to auscultation bilaterally - Cardiovascular Cardiovascular exam: Present: regular rate and rhythm - GI/Abdominal GI/Abdominal exam: Present: normal bowel sounds, soft, other (Nontender with no palpable mass or hepatosplenomegaly.) - Extremities Exam Extremities exam: Present: normal inspection - Skin Skin exam: Present: normal color, warm, intact Results - Labs CBC & BMP: 01/08/17 07:14 01/07/17 14:36
[2017-01-08] MEDS ORDERED: clonazePAM 0.5 MG TABLET PO PRN (21:06)
[2017-01-08] MEDS ORDERED: MELATONIN 3 MG TABLET PO PRN (21:12)
[2017-01-09] MEDS: SODIUM CHLORIDE 0.9% 1,000 ML IV SCH (06:00)
[2017-01-09 06:48] LABS: Basophils % 0.4 % (0.0-0.8); Eosinophils # 0.1 10*3/uL (0.0-0.87); Eosinophils % 2.2 % (0.00-10.9); Hematocrit 35.5 VOL% (42.0-52.0); Hemoglobin 11.7 GM/DL (14.0-18.0); Immature Granulocytes % 0.2 %; Immature Granulocytes Absolute 0.01 #; Lymphocytes # 1.5 10*3/uL (1.4-4.0); Lymphocytes % 30.9 % (21.2-54.2); Mean Corpuscular Hemoglobin 32 PG (27-34); Mean Corpuscular Volume 98.1 FL (87-102); Mean Platelet Volume 12.3 FL (9.6-12.0); Monocytes # 0.6 10*3/uL (0.11-0.8); Neutrophils # 2.8 10*3/uL (1.4-7.4); Neutrophils % 55.3 % (38.7-73.9); Red Blood Count 3.62 MC/CUMM (3.8-5.5); Red Cell Distribution Width 14.2 % (9.3-17.3)
[2017-01-09 06:51] LABS: Platelet Count 88 T/CUMM (130-400)
[2017-01-09 07:14] LABS: Calcium 7.8 MG/DL (8.5-10.1); Osmolality,Calculated 285.8 MOS/KG (273-304); Potassium 4.3 MMOL/L (3.5-5.1)
[2017-01-09 07:17] LABS: Giant Platelets Few; Hypochromasia 1+; Ovalocytes Slight; Platelet Estimate Decreased
[2017-01-09 07:18] LABS: Microcytosis 1+
--- NOTE | 2017-01-09 07:45 | Discharge Summary ---
Hospital Course - Hospital Course Hospital Course: Mr. Betancourt is a 86 year old white male with a history of gerd, hypertension, CVA , severe dementia, MT, and pacemaker that presented to the ED via EMS from [facility] for further evaluation of altered mental status. Patient's [id number] is present at the bedside and provides the history. Daughter in law reports that the patient was fine, driving and performing daily activities up until August at which point he became severely demented and was placed in [facility]. Today, the staff at the long-term reported the patient fell and hit his head against the wall. They report that after suffering from the fall, pt became unresponsive. He was brought to the ED and has been mostly non verbal since. Pt. was evaluated in the the ED. CXR is normal and CT is negative for any acute process. Mr. Betancourt was admitted to the hospital with a urinary tract infection and infectious encephalopathy. He did previously well known history of dementia. Urine cultures and blood cultures were negative. Discharge laboratory testing demonstrated hematocrit 35.5 hemoglobin 11.7 WBC 5000 BUN 19 creatinine 1.2 and glucose 70. He was treated in the hospital with intravenous ceftriaxone. According to his family, he returned to his normal mental status by the following day. At the time of his discharge he was comfortable and stable. Diagnosis - Discharge Diagnosis (1) Dementia Status: Chronic (2) UTI (urinary tract infection) Status: Acute (3) Delirium Status: Acute Discharge Plan - Discharge Data Disposition: Disch/Xfer to Snf Condition at Discharge: Stable Discharge Diet: advance to your usual diet Activity: resume usual activities as tolerated - Discharge Medications New Dutasteride [Avodart] 0.5 mg PO DAILY capsule Rivaroxaban [Xarelto] 15 mg PO DAILY tablet Sulfameth/Trimeth 800-160 Tab [Bactrim DS Tab] 1 tablet PO BID #8 tablet clonazePAM TAB [KlonoPIN] 1 mg PO Q8HR PRN tablet PRN Reason: Agitation Continue Pantoprazole Tab [Protonix Tab] 40 mg PO DAILY Lisinopril 20 mg PO DAILY Aspirin EC Tab 81 mg PO DAILY Tamsulosin HCl 0.4 mg PO DAILY Rosuvastatin Calcium 5 mg PO DAILY Divalproex Sprinkle [Depakote Sprinkle] 125 mg PO BID clonazePAM [Clonazepam] 1 mg PO Q8H PRN PRN Reason: Agitation Melatonin 6 mg PO BEDTIME Carvedilol [Coreg] 3.125 mg PO BID Acetaminophen Tab [Tylenol Tab] 650 mg PO Q6H PRN #0 tablet PRN Reason: Pain Mild(1-3), [place], Temp>100.4 Alum/Mag/Simeth Max Str Liquid [Mylanta Max Strength Liquid] 30 ml PO Q4H PRN #0 PRN Reason: Indigestion Magnesium Hydroxide Susp [Milk of Magnesia] 30 ml PO DAILY PRN #0 PRN Reason: Constipation - Follow Up or Referral - Forms/Instructions Exam - Constitutional Vitals: Period Temp Pulse Resp BP Sys/Stubbs Pulse Ox Last 24 Hr 96.9 F-98.6 F 61-82 18-24 118-187/59-116 82-98 Discharge Results Procedures and tests throughout hospitalization: Pending Orders 01/07/17 Urine Culture Routine 01/07/17 14:36 Blood Culture Stat 01/10/17 04:00 Comp Blood Count Auto Diff IN AM Labs on day of discharge: Labs from last 24 hours 01/09/17 01/09/17 01/08/17 06:32 06:31 07:14 WBC 5.0 RBC 3.62 L Hgb 11.7 L Hct 35.5 L MCV 98.1 MCH 32 MCHC 33.0 RDW 14.2 Plt Count 88 L MPV 12.3 H Neut % (Auto) 55.3 Lymph % (Auto) 30.9 [place] % (Auto) 11.0 Eos % (Auto) 2.2 Baso % (Auto) 0.4 Neut # (Auto) 2.8 Lymph # (Auto) 1.5 [place] # (Auto) 0.6 Eos # (Auto) 0.1 Baso # (Auto) 0.0 Immature Gran % 0.2 Nucleated RBC % 0.0 Immature Gran # 0.01 Nucleated RBCs # 0.00 Platelet Estimate Decreased Decreased Giant Platelets Few Immature Plt Fraction 0.0 Hypochromasia 1+ 1+ Microcytosis 1+ 1+ Ovalocytes Slight Few Morphology Comment Sodium 144 Potassium 4.3 Chloride 114 H Carbon Dioxide 25 Anion Gap 9.3 BUN 19 H Creatinine 1.20 GFR Calculation 59 BUN/Creatinine Ratio 15.00 Glucose 70 L Calculated Osmolality 285.8 Calcium 7.8 L Preliminary micro results at discharge 01/07/17 14:36 Blood Culture - Preliminary Blood No growth at 1 day 01/07/17 14:18 Blood Culture - Preliminary Blood No growth at 1 day 01/07/17 Unknown Urine Culture - Preliminary Urine,Voided No Growth at 24 hours. DS: Provider Date of admission: 01/07/17 18:30 Primary care physician: . 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
[2017-01-09 08:11] VITALS: BP 185/93
[2017-01-09] MEDS: DUTASTERIDE 0.5 MG CAPSULE PO SCH (09:13)
[2017-01-09] MEDS: CARVEDILOL 3.125 MG TABLET PO SCH (09:13)
[2017-01-09] MEDS: FAMOTIDINE 20 MG TABLET PO SCH (09:13)
[2017-01-09] MEDS: ASPIRIN EC 81 MG TABLET PO SCH (09:13)
[2017-01-09] MEDS: ROSUVASTATIN 10 MG TABLET PO SCH (09:13)
[2017-01-09] MEDS: RIVAROXABAN 15 MG TABLET PO SCH (09:13)
[2017-01-09] MEDS: DIVALPROEX SPRINKLE 125 MG CAPSULE PO SCH (09:13)
[2017-01-09] MEDS: TAMSULOSIN 0.4 MG CAPSULE PO SCH (09:13)
[2017-01-09] MEDS: cefTRIAXone 2,000 MG in SODIUM CHLORIDE 0.9% 100 ML IV SCH (09:41)
== END 2017-01-09 11:20 | DRG 689 ==
LOC: EDBD → EDUNIT# → N.ED 11:57 → N.EDINP 18:30 → SUATTDRO 18:30 → N.2E 19:36
PROVIDERS: ADMIT Internal Medicine